=== PATIENT | female | born 1940 | race Hispanic/Latino ===

== ENCOUNTER 2018-03-05 07:15 | Inpatient (IN) ==
[2018-03-05] MEDS ORDERED: NS 1,000 ML IV ONE ×2 (08:01→09:32)
--- NOTE | 2018-03-05 08:09 | PROVIDER DOCUMENTATION ---
HPI-Abdominal Pain/GI Problem - General Chief Complaint: Rectal Bleeding Stated Complaint: FEVER / PAIN IN LEGS Time Seen by Provider: 03/05/18 08:04 Source: patient Allergies/Adverse Reactions: Patient Allergies Allergy/AdvReac Type Severity Reaction Status Date / Time levofloxacin [From Levaquin] AdvReac ITCHING Verified 03/05/18 08:06 Home Medications: Home Medication List Medication Instructions Recorded Confirmed Last Taken Type ATORVAstatin [Lipitor] 10 mg PO DAILY 03/05/16 03/05/18 04/12/16 History Donepezil [Aricept] 23 mg PO QAM 03/05/16 03/05/18 04/12/16 History LISINOpril [Prinivil] 5 mg PO DAILY 03/05/16 03/05/18 04/12/16 History Metformin [Glucophage] 850 mg PO BID CC 03/05/16 03/05/18 04/12/16 History Pantoprazole [Protonix] 40 mg PO BID 03/05/18 03/05/18 Unknown History - History of Present Illness-ABD Nature of Presenting Problems: Ms Singh is a 77yohf that presents to the ed with c/o black tarry stools, fever , chills, and fatigue that has been worsening over the past week. She was recently seen at [facility] and scheduled for a colonoscopy this week. She states that her symptoms have worsened since her D/C. Abdominal Pain Onset Location: reports: generalized abdomen Pain Radiation: reports: no radiation Quality of Pain: reports: sharp Severity in ED: reports: moderate Onset/Duration: reports: 1 week ago Timing: reports: still present Activities at Onset: reports: none Exposure to sick contacts?: No Modifying Factors: improves with: nothing Associated Symptoms: reports: diarrhea, fever/chills, malaise, muscle aches, nausea, weakness. denies: arm pain, back/neck pain, chest pain, constipation, headaches, shortness of breath, pain with inspiration Last BM: this morning Dark Stools Present?: reports: black Rectal Pain: reports: none Review of Systems - Adult - REVIEW OF SYSTEMS - ADULT Constitutional: reports: no symptoms reported Eyes: reports: no symptoms reported Ears, Nose, Mouth & Throat: reports: no symptoms reported Cardiovascular: reports: no symptoms reported Respiratory: reports: no symptoms reported Gastrointestinal: reports: see HPI Genitourinary: reports: no symptoms reported Musculoskeletal: reports: no symptoms reported Integumentary: reports: no symptoms reported Neurological: reports: no symptoms reported Psychiatric: reports: no symptoms reported Endocrine: reports: no symptoms reported Hematologic/Lymphatic: reports: no symptoms reported Allergic/Immunologic: reports: no symptoms reported All Other Systems: Reviewed and Negative Past History - Adult - PAST MEDICAL HISTORY-ADULT Review of Records: reports: Old Records Reviewed, Nursing Assessment Review, Medications Reviewed, Social history reviewed & non-contributory. Major Childhood Illnesses: reports: denies history Cardiovascular: reports: CAD, HTN, [place] Respiratory: reports: asthma Gastrointestinal: reports: denies history Obstetrical/Gynecological: reports: other (breast cancer) Genitourinary: reports: denies history Musculoskeletal: reports: denies history Neurological: reports: CVA, dementia Endocrine/Immune: reports: Diabetes Other Conditions: reports: other (breast cancer lumpectomy) - PRIOR SURGERIES/PROCEDURES Surgical/Procedure History: reports: reviewed, not pertinent - IMMUNIZATION STATUS Childhood Immunizations: See Nurse Assessment Flu Vaccine: See Nurse Assessment - FAMILY HISTORY Family History: reviewed, not pertinent - SOCIAL HISTORY Smoking: denies Substance Use: none/never Alcohol Use Frequency: never Living Situation: family Physical Exam-General - PHYSICAL EXAM-ADULT Initial Vital Signs Reviewed: Yes - CONSTITUTIONAL General Appearance: alert, no apparent distress, lethargic - EYES Eyes: PERRL/EOMI - HEAD, EARS, NOSE, MOUTH & THROAT HENMT: normocephalic/atraumatic, moist mucous membranes, normal ENT inspection - NECK Neck: non-tender, full range of motion, supple, normal inspection. negative: lymphadenopathy, trachial deviation - RESPIRATORY Respiratory: chest non-tender, lungs clear, normal breath sounds - CARDIOVASCULAR Cardiovascular: normal peripheral pulses, no edema, tachycardia - GASTROINTESTINAL (ABDOMEN) Abdominal Exam: normal bowel sounds, non tender, soft - GENITOURINARY Rectal Exam: normal exam, normal rectal tone, other (Rectal exam performed at bedside with CHIARA Padilla at bedside during exam) - LYMPHATIC Lymphatic: no adenopathy - MUSCULOSKELETAL Back Exam: normal inspection, no CVA tenderness, no vertebral tenderness Extremity: normal range of motion, non-tender - SKIN Integumentary: normal color, normal turgor, warm/dry. negative: abrasion(s) - NEUROLOGIC Neurologic: grossly normal - PSYCHIATRIC Psych/Mental Status: normal thought content Progress - PLAN OF CARE/RESULTS Progress/Plan/Lab Results: Vital Signs - 8 hr 03/05/18 07:30 Temperature 100.0 F H Pulse Rate 103 H Respiratory Rate 20 Blood Pressure 92/43 O2 Sat by Pulse Oximetry 95 Orders Category Date Time Status Saline Loc NOW Care 03/05/18 08:01 Active AMYLASE [CHEM] Stat Lab 03/05/18 07:53 Ordered BLOOD CULTURE [BLDCUL] Stat Lab 03/05/18 08:02 Uncollected CBC WITH DIFF [HEME] Stat Lab 03/05/18 07:53 Ordered COMPREHENSIVE METABOLIC PANEL [CHEM] Stat Lab 03/05/18 07:53 Uncollected LACTATE, PLASMA [CHEM] Stat Lab 03/05/18 07:53 Uncollected LIPASE [CHEM] Stat Lab 03/05/18 07:53 Uncollected OCCULT BLOOD SCREEN STOOL PL Stat Lab 03/05/18 07:53 Uncollected PROTIME WITH INR [COAG] Stat Lab 03/05/18 07:53 Uncollected PTT [COAG] Stat Lab 03/05/18 07:53 Uncollected TYPE & SCREEN [BBK] Stat Lab 03/05/18 07:53 Uncollected UA NIMS W/REFLEX CULT PL [URINALYSIS] Stat Lab 03/05/18 07:53 Uncollected Ns 1000 ml IV Bolus X1 Med 03/05/18 08:01 Ordered 0.9% Sodium Chloride Inj [Ns] 1,000 ml IV 999 mls/hr The pt will be admitted to [facility] with Pneumonia and r/o acalculi cholecystitis. The pt and her family understand, verbalize, and agree with the plan of care given today. Result Diagrams: 03/05/18 08:30 03/05/18 08:30 - EKG 1 Time of EKG reading by physician:: 08:47 EKG Read and Signed by:: Jerome Cox EKG Interpretation (*Must complete 3 of following elements*): Normal Rate: 104 Rhythm: Sinus tach [place]: normal QRS: normal ME Interval: normal ST Wave: normal - XRAY 1 XRAY: Bilateral XRAY Study: Chest Impression: Abnormal (COMMENT: There is ill-defined alveolar opacity in both lower lung estrada which has worsened since 04/12/2016. There may be a small left pleural effusion. The heart size is not enlarged. IMPRESSION: Bibasilar pneumonia.) Comparison with other Films: changes noted XRAY Interpretation: See Impression - CT/MRI 1 CT Study: Abdomen, Pelvis Impression: Abnormal (COMMENT: The current examination is compared with the previous CT colography dated 06/13/2017. There are bilateral pleural effusions which were not present previously. There is atelectasis or pneumonia in both lower lobes. This is worse than on the previous examination particularly in the right lower lobe. There was previously some opacity in the left lower lobe and some of this may be due to fibrosis. Minimal fibrotic changes are present in the right middle lobe including some pleural thickening. There is a small hiatal hernia. There is mild periportal edema. This is a nonspecific finding but may be seen in congestive heart failure and hepatitis. There is no evidence of nephrolithiasis or hydronephrosis. The spleen and adrenal glands are not enlarged. There is a fair amount of stool in the colon. The pancreas is unremarkable in appearance. The gallbladder is slightly distended and there may be some pericholecystic fluid and/or wall thickening. There is no evidence of small bowel obstruction. The abdominal aorta is partially calcified but there is no evidence of aneurysm. The mesenteric and renal arteries appear to be patent. There is extensive postsurgical and degenerative change in the lumbar spine. Pelvis: There is stool throughout the rectosigmoid. There are a few diverticula. There is no evidence of acute diverticulitis. No masses or significant adenopathy are present. The urinary bladder is unremarkable. IMPRESSION: Constipation. The possibility of acalculous cholecystitis cannot be excluded. Bilateral pleural effusions with bibasilar atelectasis versus pneumonia.) CT Results: See Impression - CONSULTS/PCP/HOSPITALIST Notification #1 *Consult/PCP/Hospitalist*: Dr. Espitia Time Discussed: 10:35 Consult Disposition: Admit Departure - Departure Date of Disposition Decision: 03/05/18 Time of Disposition Decision: 10:36 DIAGNOSIS: Cholecystitis Pneumonia Qualifiers: Pneumonia type: due to unspecified organism Laterality: unspecified laterality Lung location: unspecified part of lung Qualified Code(s): J18.9 - Pneumonia, unspecified organism Sepsis Qualifiers: Sepsis type: sepsis due to unspecified organism Qualified Code(s): A41.9 - Sepsis, unspecified organism Disposition: HOME 01 Certified Medical Emergency: Emergent Condition: Stable Additional Freetext Instructions: ED Follow Up Instructions: You have been treated by a care provider in the Emergency Department. These instructions are being provided to you so you can have an understanding of how to care for yourself upon discharge. Upon discharge from the Emergency Department, you are responsible for making arrangements for follow-up care by a physician of your choice. Take all prescribed medications as directed. Return to the Emergency Department immediately for any new or worsening symptoms. You may call the Physician Referral phone number at [phone] to obtain a list of Physicians who are taking new patients. Referrals and Follow-Ups: Alex Espitia MD [Primary Care Provider] - - Critical Care Note This patient required my direct & personal management of CC.: No Attestation - Physician/ ELISA Attestation Patient care was provided by Advanced Practice Provider:: Yes Advanced Practice Provider:: Geovanny Olivas Advanced Practice Provider documentation review:: The Mid-level provider documentation, treatment plan and medical decision making was reviewed by the physician who agrees with all treatment and medical decision making by the MLP. The physician spent face to face time with patient:: No Advanced Practice Provider documentation review:: Supervising physician onsite and consulted in the evaluation and care of this patient. The physician did not have a face to face encounter with the patient.
[2018-03-05 08:40] LABS: BASO# 0.02 X1000 (0.0-0.2); BASO% 0.2 % (0.0-0.8); EOS# 0.18 X1000 (0.0-0.7); EOS% 1.6 % (0.0-10.0); HEMATOCRIT 30.9 % (37.0-47.0); IMM GRAN# 0.09 X1000 (0.0-0.04); IMM GRAN% 0.8 % (0.0-0.5); LYMPH# 0.34 X1000 (1.2-3.4); MCH 29.9 PG (27-31); MCHC 32.4 g/dL (33-37); MCV 92.2 FL (81-99); MONO# 0.66 X1000 (0.11-0.59); MONO% 5.8 % (1.7-9.3); MPV 11.5 FL (7.4-10.4); NEUT# 10.05 X1000 (1.4-6.5); NEUT% 88.6 % (42.2-75.2); PLT 137 X1000 (130-400); RBC 3.35 XMIL (4.2-5.4); RDW 16.5 % (11.5-14.5); WBC 11.34 X1000 (4.8-10.8)
[2018-03-05 08:41] LABS: OCCULT BLOOD 1 NEGATIVE (NEGATIVE)
[2018-03-05 09:00] LABS: INR 1.13; PROTIME 15.1 Seconds (11.0-16.0)
[2018-03-05 09:01] LABS: PTT 41.1 Seconds (22.3-41.8)
[2018-03-05 09:16] LABS: ALBUMIN 2.5 g/dL (3.5-5.0); CALCIUM 8.1 mg/dL (8.8-10.2); POTASSIUM 3.8 mmol/L (3.5-5.1); TOTAL BILIRUBIN 0.9 mg/dL (0.20-1.00)
[2018-03-05 09:37] LABS: BANDS 6 % (0-1); EOS 2 % (1-10); LYMPHS 7 % (21-51); MONO 6 % (1-9); SEGS 79 % (42-75)
--- NOTE | 2018-03-05 09:49 | Diag Imaging Result Doc PS360 ---
EXAM: CHEST-2 VIEWS 03/05/2018 HISTORY: possible sepsis TECHNIQUE: PA and lateral chest COMMENT: There is ill-defined alveolar opacity in both lower lung estrada which has worsened since 04/12/2016. There may be a small left pleural effusion. The heart size is not enlarged. IMPRESSION: Bibasilar pneumonia. Electronically signed by Matt Myers 03/05/2018 9:47 AM
--- NOTE | 2018-03-05 10:03 | Diag Imaging Result Doc PS360 ---
EXAM: CT ABD/PELVIS W/IV CONT ONLY 03/05/2018 HISTORY: abd pain with c/o bloody stool TECHNIQUE: This exam was performed using automated exposure control, adjustment of mA or kV according to patient size, and/or use of iterative reconstruction technique. COMMENT: The current examination is compared with the previous CT colography dated 06/13/2017. There are bilateral pleural effusions which were not present previously. There is atelectasis or pneumonia in both lower lobes. This is worse than on the previous examination particularly in the right lower lobe. There was previously some opacity in the left lower lobe and some of this may be due to fibrosis. Minimal fibrotic changes are present in the right middle lobe including some pleural thickening. There is a small hiatal hernia. There is mild periportal edema. This is a nonspecific finding but may be seen in congestive heart failure and hepatitis. There is no evidence of nephrolithiasis or hydronephrosis. The spleen and adrenal glands are not enlarged. There is a fair amount of stool in the colon. The pancreas is unremarkable in appearance. The gallbladder is slightly distended and there may be some pericholecystic fluid and/or wall thickening. There is no evidence of small bowel obstruction. The abdominal aorta is partially calcified but there is no evidence of aneurysm. The mesenteric and renal arteries appear to be patent. There is extensive postsurgical and degenerative change in the lumbar spine. Pelvis: There is stool throughout the rectosigmoid. There are a few diverticula. There is no evidence of acute diverticulitis. No masses or significant adenopathy are present. The urinary bladder is unremarkable. IMPRESSION: Constipation. The possibility of acalculous cholecystitis cannot be excluded. Bilateral pleural effusions with bibasilar atelectasis versus pneumonia. Electronically signed by Matt Myers 03/05/2018 10:00 AM
[2018-03-05] MEDS ORDERED: ZITHROMAX 500 MG/NS 500 MG/250 ML IVPB IV ONE (10:07)
[2018-03-05] MEDS ORDERED: ROCEPHIN 1 GM in NS 50 ML IV ONE (10:07)
[2018-03-05 10:25] LABS: BILIRUBIN URINE NEGATIVE (NEGATIVE); BLOOD URINE 1+ (NEGATIVE); CLARITY CLEAR (CLEAR); COLOR YELLOW; GLUCOSE URINE NEGATIVE (NEGATIVE); KETONE URINE TRACE mg/dL (NEGATIVE); LEUKOCYTES URINE TRACE (NEGATIVE); NITRITE URINE POSITIVE (NEGATIVE); PH URINE 6.5; PROTEIN URINE 2+(100 mg/dL) mg/dL (NEGATIVE); SP GRAVITY URINE 1.005; UROBILINOGEN URINE 1 mg/dL
[2018-03-05 10:30] LABS: URINE BACTERIA 1+ /HFP; URINE EPITHELIAL CELLS >10 /HPF (<10); URINE RBC <10 /HPF (<10); URINE SOURCE CLEAN CATCH; URINE WBC <10 /HPF (<10)
[2018-03-05 10:38] LABS: INFLUENZA A NEGATIVE (NEGATIVE); INFLUENZA B NEGATIVE (NEGATIVE)
--- NOTE | 2018-03-05 11:38 | Diag Imaging Result Doc PS360 ---
EXAM: US ABDOMEN-COMPLETE 03/05/2018 HISTORY: abdominal pain TECHNIQUE: Abdominal ultrasound COMMENT: The visualized portions of the head and body the pancreas are within normal limits. The aorta and inferior vena cava are normal in appearance where they are visible. The liver is unremarkable. There is antegrade flow in the portal vein. The kidneys are without evidence of hydronephrosis or mass. The gallbladder is not distended, but there may be some para cholecystic fluid and there is a positive sonographic Nguyen sign. There are no apparent stones. The common bile duct measures 3 mm. The spleen is not enlarged. There is a left pleural effusion. IMPRESSION: Acalculous cholecystitis. Pleural effusions. Electronically signed by Matt Myers 03/05/2018 11:35 AM
[2018-03-05] MEDS: ZOSYN 3.375 GM in NS 50 ML IV SCH ×2 (12:21→18:35)
--- NOTE | 2018-03-05 13:05 | HISTORY AND PHYSICAL ---
PRIMARY CARE PHYSICIAN: Listed as none. CHIEF COMPLAINT: Black tarry stools, fever, chills, and fatigue. HISTORY OF PRESENTING ILLNESS: This is a 77-year-old female who presents to [facility] with complaints of black tarry stools, fever, chills, and fatigue that has worsened over the past week. She is mildly confused and a poor historian but was apparently seen or admitted at [facility] recently and is supposed to be scheduled for a colonoscopy this week. Her workup showed a stool for occult blood was negative. White blood cell count of 11.34. Her LFTs are elevated with an AST of 90 and ALT 63. Amylase and lipase were both normal. Her urinalysis showed positive nitrite, a trace of white blood cells, and 1+ bacteria. We did a CT of the abdomen and pelvis that showed constipation. The possibility of acalculous cholecystitis could not be excluded. There were some bilateral pleural effusions with bibasilar atelectasis versus pneumonia also. Chest x-ray showed bibasilar pneumonia. We did do an abdominal ultrasound that was read as an acalculous cholecystitis with pleural effusions, so she will be admitted to the medical unit for further evaluation and treatment. PAST MEDICAL HISTORY: Coronary artery disease, hypertension, [place], asthma, breast cancer, CVA, dementia, and diabetes type 2. PAST SURGICAL HISTORY: Breast lumpectomy. FAMILY HISTORY: Reviewed and noncontributory. SOCIAL HISTORY: She currently lives with family. Denies any tobacco, alcohol, or illicit drug use. ALLERGIES: Levofloxacin. HOME MEDICATIONS: She takes Lipitor 10 mg p.o. daily. Aricept 23 mg p.o. q.a.m. Lisinopril 5 mg p.o. daily. Metformin 850 mg p.o. b.i.d. Protonix 40 mg p.o. b.i.d. LABORATORY DATA: Showed a white blood cell count of 11.34, hemoglobin 10, hematocrit 30.9, platelets 137,000. PT and INR of 15.1 and 1.13. Sodium 139, potassium 3.8, chloride 108, CO2 of 17, BUN of 27, creatinine 1, glucose 90. AST of 90. ALT 63. Amylase 42. Lipase 16. Plasma lactate 2. Urinalysis with positive nitrites, trace white blood cells, 1+ bacteria. Stool for occult blood is negative. Influenza A and B were both negative. CT of the abdomen and pelvis showed constipation. The possibility of acalculous cholecystitis could not be excluded. Bilateral pleural effusions with bibasilar atelectasis versus pneumonia. Chest x-ray showed bibasilar pneumonia. Abdominal ultrasound showed an acalculous cholecystitis and pleural effusions. REVIEW OF SYSTEMS: She was positive for a subjective fever, chills, fatigue, black tarry stools. Denied any chest pain, coughing, shortness of breath. Denied any abdominal pain, nausea, vomiting, burning or hurting with urination. PHYSICAL EXAMINATION: VITAL SIGNS: On arrival showed a temperature of 100 degrees, pulse 103, respirations 20, blood pressure was 92/43, saturating 95% on room air. Currently, her blood pressure is up to 108/63. GENERAL: This is a 77-year-old female who is lying in the bed. Difficult to answer some questions appropriately. Does have some mild confusion. Information obtained from the ER record. HEENT: Normocephalic, atraumatic. Normal ENT inspection. Oropharynx and nares are clear. Eyes, pupils are equal, round, and reactive to light and accommodation. Extraocular movements are intact. NECK: Normal inspection. Normal range of motion. LUNGS: Clear to auscultation bilaterally with equal lung expansion and chest wall movement. HEART: With regular rate and rhythm. No murmurs, rubs, or gallops. ABDOMEN: Soft. Nontender and nondistended. Bowel sounds are present x4 quadrants. MUSCULOSKELETAL: She has 5/5 strength x4 extremities. NEUROLOGICAL: Cranial nerves 2-12 appear grossly intact. ASSESSMENT: 1. Bibasilar pneumonia. 2. Urinary tract infection. 3. Acalculous cholecystitis. 4. Hypertension. 5. Diabetes type 2. PLAN: She will be admitted to the medical unit. Urine culture and blood cultures are pending. We will consult General Surgery. Place her on Zosyn 3.375 g IV q.6, azithromycin 500 IV q.24, DuoNebs q.[address] telemetry. Incentive spirometry. N.p.o. at this time. O2 per protocol. We will recheck a CBC, BMP in the a.m. Continue home medications as previously identified, and further orders after being seen by attending and General Surgery. Dictated by LAZ Mcnamara for Negro Espitia MD cc: LAZ Mcnamara MD
[2018-03-05] MEDS: DUONEB (A & A) INH SCH ×3 (16:30→23:26)
[2018-03-05] MEDS ORDERED: GLUCOPHAGE PO SCH (17:00)
[2018-03-05] MEDS: PROTONIX IV SCH (18:35)
[2018-03-05] MEDS: ARICEPT PO SCH (18:35)
[2018-03-05] MEDS: PRINIVIL PO SCH (18:35)
--- NOTE | 2018-03-05 20:06 | EKG Report ---
Test Performed on : 03/05/2018 08:47:25 AM Test Reason : possible sepsis Blood Pressure : / mmHG Vent. Rate : 104 BPM Atrial Rate : 104 BPM P-R Int : 152 ms QRS Dur : 080 ms QT Int : 312 ms P-R-T Axes : 076 045 061 degrees QTc Int : 410 ms Sinus tachycardia. Otherwise normal ECG When compared with ECG of 04-MAY-2017 19:33, Sinus rhythm. has replaced Junctional rhythm. Vent. rate has increased BY 38 BPM Nonspecific T wave abnormality, improved in Inferior leads Unconfirmed Result
[2018-03-05] MEDS: LIPITOR PO SCH (20:22)
--- NOTE | 2018-03-05 20:30 | PROGRESS NOTE ---
DATE: 03/05/2018 SUBJECTIVE: Patient is 77-year-old female who presents from [place]. She reports black tarry stools. She was just at [facility] for a GI bleed. She received 4 units of blood it sounds like from her son who is and she is due for an outpatient colonoscopy in about a month. However she came in with fevers, chills, fatigue. She reports melena but her stool is not melenic and she was heme negative so little unclear but she is uncomfortable. She has a history of CAD, hypertension, CVA, but she was diagnosed here with pneumonia based on her CT which showed constipation, acalculous cholecystitis and pneumonia and possible pleural effusions. She definitely has pain in her right upper quadrant. PROBLEM LIST: 1. Pneumonia. At this point we are probably going to say it is institutional acquired so she is on Zosyn I think that is fine and she is on azithromycin. 2. Acalculous cholecystitis. We will get a surgical opinion and follow, work on her bowels too and get a HIDA scan tomorrow but does look like she has got acalculous cholecystitis. 3. Gastrointestinal bleed appears to be stable. We will hold anticoagulants, continue Protonix and follow. She may need a bowel regimen as well. Family says she is very weak. We will work on reconditioning with PT and follow. cc: Negro Espitia MD
[2018-03-05] MEDS ORDERED: PROTONIX PO SCH (21:00)
--- NOTE | 2018-03-05 21:43 | GENERAL SURGERY CONSULTATION ---
DATE: 03/05/2018 HISTORY OF PRESENT ILLNESS: Ms. Singh is admitted today with fever, chills, and fatigue. Her workup included an ultrasound and CT that does show a dilated gallbladder, with some pericholecystic fluid. She does report some dyspeptic symptoms, with some bloating. She has been evaluated in [facility] recently, apparently for hematochezia. Her x-ray also shows possible pneumonia, and her workup shows a urinary tract infection. PAST MEDICAL HISTORY: Positive for coronary artery disease, hypertension, history of asthma, history of breast cancer, dementia, and type 2 diabetes. PREVIOUS SURGICAL HISTORY: Includes a lumpectomy and apparently a . FAMILY HISTORY: Not known. SOCIAL HISTORY: She says she lives alone. She denies a history of tobacco, alcohol, or drug use. MEDICATIONS: Listed. ALLERGIES: She is allergic to levofloxacin. REVIEW OF SYSTEMS: As noted above. PHYSICAL EXAMINATION: Vital Signs: Temperature is 97.5 degrees, heart rate 102, respiratory rate 20, blood pressure 130/62. Neck: No cervical adenopathy. Lungs: Bilateral breath sounds. Heart: Regular rate and rhythm. Abdomen: Soft. She is tender in the right upper quadrant, consistent with a positive Nguyen's sign. She does have some erythema in the lower abdominal fold, consistent with yeast. Extremities: There is no peripheral edema. Neurologic: She is awake and alert. LABORATORY DATA: White count is 11,300, hemoglobin 10, hematocrit 30. BUN 27, creatinine 1.0. Total bilirubin 0.9, AST 90, ALT 63, alkaline phosphatase 82. Ultrasound does show some edema in her gallbladder. ASSESSMENT AND PLAN: Probable acalculous cholecystitis. She will be receiving antibiotic therapy. We will follow along, and when she is medically stable, she may come to a cholecystectomy. Thanks for the opportunity to see her. cc: Sreedhar Nino MD
[2018-03-06] MEDS: ZOSYN 3.375 GM in NS 50 ML IV SCH ×5 (00:27→21:33)
[2018-03-06] MEDS: DUONEB (A & A) INH SCH ×5 (03:23→20:09)
[2018-03-06] MEDS ORDERED: NS 500 ML IV ONE (04:23)
[2018-03-06] MEDS ORDERED: NS 500 ML ONE (04:27)
[2018-03-06] MEDS ORDERED: CARDIZEM 100 MG/NS 100 MG/100 ML IVPB IV SCH (04:30)
[2018-03-06] MEDS ORDERED: CARDIZEM 125/NS 125 MG/125 ML IVPB ONE (04:45)
--- NOTE | 2018-03-06 04:55 | EKG Report ---
Test Performed on : 03/06/2018 04:21:47 AM Test Reason : HR @ 180 Blood Pressure : / mmHG Vent. Rate : 170 BPM Atrial Rate : 166 BPM P-R Int : 000 ms QRS Dur : 082 ms QT Int : 258 ms P-R-T Axes : 000 061 245 degrees QTc Int : 433 ms Atrial fibrillation. with rapid ventricular response. ST & T wave abnormality, consider inferior ischemia ST & T wave abnormality, consider anterolateral ischemia Abnormal ECG When compared with ECG of 05-MAR-2018 08:47, (Unconfirmed) Significant changes have occurred Confirmed by Jerome Cox MD ([id number]) on 04/02/2018 9:58:24 AM
[2018-03-06] MEDS ORDERED: NEO-SYNEPHRINE ONE (05:55)
[2018-03-06] MEDS ORDERED: NS 250 ML ONE (05:55)
[2018-03-06] MEDS ORDERED: LANOXIN ONE (05:57)
[2018-03-06] MEDS ORDERED: NS 0 ML ONE (06:06)
[2018-03-06] MEDS ORDERED: LANOXIN IV ONE (06:10)
[2018-03-06] MEDS ORDERED: NEO-SYNEPHRINE 50 MG in NS 250 ML IV SCH (06:15)
[2018-03-06 07:12] LABS: BASO# 0.02 X1000 (0.0-0.2); BASO% 0.2 % (0.0-0.8); HEMATOCRIT 27.1 % (37.0-47.0); HEMOGLOBIN 8.5 g/dL (12.0-16.0); IMM GRAN# 0.03 X1000 (0.0-0.04); IMM GRAN% 0.3 % (0.0-0.5); LYMPH# 0.86 X1000 (1.2-3.4); LYMPH% 7.6 % (20.5-51.1); MCH 28.7 PG (27-31); MCHC 31.4 g/dL (33-37); MCV 91.6 FL (81-99); MONO% 8.8 % (1.7-9.3); MPV 11.1 FL (7.4-10.4); NEUT# 9.47 X1000 (1.4-6.5); NEUT% 83.1 % (42.2-75.2); PLT 177 X1000 (130-400); RBC 2.96 XMIL (4.2-5.4); RDW 16.6 % (11.5-14.5); WBC 11.38 X1000 (4.8-10.8)
[2018-03-06 07:35] LABS: CALCIUM 7.4 mg/dL (8.8-10.2); CREATININE 1.1 mg/dL (0.5-0.9); POTASSIUM 3.3 mmol/L (3.5-5.1)
[2018-03-06 07:37] LABS: ALBUMIN 2.5 g/dL (3.5-5.0); DIRECT BILIRUBIN 0.3 mg/dL (0.00-0.20); TOTAL BILIRUBIN 0.6 mg/dL (0.20-1.00)
[2018-03-06] MEDS: TYLENOL PO PRN ×2 (07:54→16:49)
[2018-03-06] MEDS ORDERED: KLOR-CON PO ONE (07:55)
[2018-03-06] MEDS: ARICEPT PO SCH (09:31)
[2018-03-06] MEDS: PRINIVIL PO SCH (09:31)
[2018-03-06] MEDS ORDERED: CARDIZEM 125/NS 125 MG/125 ML IVPB IV SCH (10:43)
[2018-03-06] MEDS: ZITHROMAX 500 MG/NS 500 MG/250 ML IVPB IV SCH (13:25)
--- NOTE | 2018-03-06 13:55 | CARDIOLOGY CONSULTATION ---
DATE: 03/06/2018 HISTORY OF PRESENT ILLNESS: Cardiology was consulted for atrial fibrillation. The patient has history of atrial fibrillation, is admitted with pneumonia. The patient is a poor historian. History was obtained from the chart. The patient is a 77-year-old, lady who had complaints of black tarry stools, fevers, chills and fatigue. Over the past week she was apparently admitted at [facility], and was scheduled for colonoscopy. Her workup showed stools were negative for occult blood. Chest x-ray revealed bibasilar pneumonia. She has been started on antibiotics. Abdominal ultrasound revealed acalculous cholecystitis with pleural effusions as well. REVIEW OF SYSTEMS: A 14-point review of systems could not be obtained from the patient. PAST MEDICAL HISTORY: Diabetes, hypertension, dementia, history of atrial fibrillation 2017. Gastroesophageal reflux disease. Hyperlipidemia. History of diastolic heart failure. MEDICATIONS: Home medications: Lipitor 10. Aricept 23. Lisinopril 5. Metformin 850 b.i.d., Protonix 40 b.i.d. Current medications include in addition to home medications: She is on a Cardizem drip. Vipul- Synephrine drip. Zithromax intravenously. Zosyn intravenously. She has received ceftriaxone and 1 dose of digoxin. PHYSICAL EXAMINATION: Vital Signs: Blood pressure 91/49. Neck: Jugular venous pressure was normal. Cardiac: First and second heart sounds were heard. There was faint murmur. Respiratory System: Scattered crepitations. Abdomen: Soft, nontender. Central nervous system: Alert, was moving all 4 extremities. Detailed central nervous system examination not performed. LABORATORY EXAMINATION: Revealed sodium 135, potassium 3.3, BUN 26, creatinine 1.1. ALT 47, AST 62. WBC 11.38, hemoglobin on admission was 10.5, today 8.5. Hematocrit was 30, today 27.1. WBC 11.38, platelet count 177. Blood cultures gram-positive cocci, preliminary report. ASSESSMENT AND PLAN: Ms. Viviana Singh is a 77-year-old lady with history of: 1. Dementia. 2. Hypertension. 3. Atrial fibrillation. 4. Diabetes. 5. Gastroesophageal reflux disease. 6. Was noted to have had black tarry stools which was heme-negative. However, colonoscopy was planned at [place] per chart. She is admitted with increasing shortness of breath. Was noted to be in atrial fibrillation with rapid ventricular rate and bibasilar pneumonia. She has history of atrial fibrillation. RECOMMENDATIONS: 1. From a cardiac standpoint, as far as atrial fibrillation is concerned, she was started on a Cardizem drip. Is hypotensive, probably from pneumonia, sepsis as well. She is on a Vipul- Synephrine drip. We will get an echocardiogram to assess cardiac and valvular function. 2. I will discontinue the Cardizem. Put her on a combination of p.o. Cardizem and digoxin and continue with the Vipul-Synephrine drip. 3. As far as anticoagulation is concerned, not anticoagulated the patient. There is history of black tarry stools even though stool was negative. Colonoscopy was planned and her hemoglobin and hematocrit has dropped. 4. She has gallstones and surgery has been consulted. 5. Her blood pressure is low. For hypertension, she was on lisinopril. Will discontinue that. We will see if Cardizem p.o. will control her blood pressure as well.
[2018-03-06] MEDS ORDERED: VANCOMYCIN IV PER PHARMACY MISC SCH (14:30)
[2018-03-06] MEDS: CARDIZEM PO SCH ×2 (14:52→21:34)
[2018-03-06] MEDS: LANOXIN PO SCH (14:52)
[2018-03-06] MEDS ORDERED: VANCOMYCIN 1,400 MG in NS 250 ML IV ONE (15:00)
[2018-03-06] MEDS: NS 1,000 ML IV SCH (16:49)
[2018-03-06] MEDS: PROTONIX IV SCH (16:53)
--- NOTE | 2018-03-06 19:06 | ECHO REPORT ---
ORDER DATE: 03/06/2018 ECHOCARDIOGRAM: INDICATION: Atrial fibrillation, pneumonia, hypertension. FINDINGS: 1. Right atrium is moderately enlarged at 5.2 cm. 2. Moderate tricuspid regurgitation. RV systolic pressure 38. 3. Right ventricle is difficult to evaluate due to poor views, but there appears to be mild RV systolic function reduction. 4. Mild pulmonic insufficiency. 5. Severe left atrial enlargement with a volume index of 44. 6. No mitral valve prolapse. Mild mitral regurgitation. 7. Normal LV size, end-diastolic dimension of 4.4 cm. Normal wall thicknesses with a posterior and interventricular septal wall thickness of 0.6 and 0.8 cm respectively. Normal LV systolic function. Estimated EF is 60% to 65% with normal wall motion. 8. Aortic valve appears to have some restriction in motion. Peak gradient across the valve is 22 with a mean of 13. The valve area by continuity equation is 1.6 cm sq. This would suggest mild aortic stenosis. There is mild aortic insufficiency. 9. Aorta appears normal in visualized segments. 10. No pericardial effusion. Suggestion of a pleural effusion. cc: MD Shaheen Thurman MD
[2018-03-06 20:14] LABS: BILIRUBIN URINE NEGATIVE (NEGATIVE); BLOOD URINE 1+ (NEGATIVE); CLARITY CLEAR (CLEAR); COLOR YELLOW; GLUCOSE URINE NEGATIVE (NEGATIVE); KETONE URINE NEGATIVE (NEGATIVE); LEUKOCYTES URINE NEGATIVE (NEGATIVE); NITRITE URINE NEGATIVE (NEGATIVE); PH URINE 6.5; PROTEIN URINE TRACE mg/dL (NEGATIVE); UROBILINOGEN URINE NORMAL
[2018-03-06 20:16] LABS: URINE BACTERIA NEGATIVE /HFP; URINE CAST GRANULAR PRESENT /LPF; URINE CRYSTAL NONE SEEN /HPF; URINE EPITHELIAL CELLS <10 /HPF (<10); URINE RBC <10 /HPF (<10); URINE SMALL ROUND CELLS RENAL PRESENT; URINE SOURCE CLEAN CATCH; URINE WBC <10 /HPF (<10); URINE YEAST NONE SEEN /HPF
[2018-03-06] MEDS: LIPITOR PO SCH (21:34)
[2018-03-07] MEDS: DUONEB (A & A) INH SCH ×4 (00:01→12:44)
--- NOTE | 2018-03-07 02:15 | PROGRESS NOTE ---
DATE: 03/06/2018 SUBJECTIVE: The patient has no new complaints. She states that she does feel her heart racing at times. OBJECTIVE: Vital Signs: The patient is afebrile. Pulse 130s-160s, BP 185/55. General: Then patient is awake and alert. She is currently in no respiratory distress. Overall is feeling okay. Abdomen: Soft and nondistended. Extremities: Moves all extremities. ASSESSMENT: 1. pneumonia. 2. Atrial fibrillation with rapid ventricular response. 3. acalculous cholecystitis. 4. Hypertension. PLAN: We will continue the patient in the hospital. Transfer her to ICU when bed is available. Continue Cardizem, Vipul-Synephrine. Continue digoxin and antibiotics. cc: Joesph Strange MD MTDD
[2018-03-07] MEDS: ZOSYN 3.375 GM in NS 50 ML IV SCH ×4 (03:00→20:27)
[2018-03-07] MEDS: CARDIZEM PO SCH ×3 (05:57→20:27)
[2018-03-07] MEDS: NS 1,000 ML IV SCH ×2 (05:57→17:46)
[2018-03-07 07:10] LABS: HEMATOCRIT 26.8 % (37.0-47.0); HEMOGLOBIN 8.4 g/dL (12.0-16.0); MCHC 31.3 g/dL (33-37); MCV 92.4 FL (81-99); MPV 11.5 FL (7.4-10.4); RBC 2.9 XMIL (4.2-5.4); WBC 9.36 X1000 (4.8-10.8)
[2018-03-07 07:14] LABS: AGAP 11; ALBUMIN 1.9 g/dL (3.5-5.0); ALKALINE PHOSPHATASE 65 U/L (32-104); BUN 24 mg/dL (8-22); CALCIUM 7.2 mg/dL (8.8-10.2); CHLORIDE 111 mmol/L (98-107); COSMO 279; CREATININE 0.9 mg/dL (0.5-0.9); ESTIMATED GFR > 60; GLUCOSE 83 mg/dL (70-104); GOT 41 U/L (10-30); GPT 34 U/L (10-36); POTASSIUM 3.9 mmol/L (3.5-5.1); SODIUM 138 mmol/L (136-145); TCO2 16 mmol/L (25-35); TOTAL PROTEIN 5.2 g/dL (6.3-8.3)
[2018-03-07] MEDS: ARICEPT PO SCH (08:47)
[2018-03-07] MEDS: LANOXIN PO SCH (08:47)
[2018-03-07] MEDS: ZITHROMAX 500 MG/NS 500 MG/250 ML IVPB IV SCH (13:25)
[2018-03-07] MEDS ORDERED: DULCOLAX PR ONE (16:06)
[2018-03-07] MEDS ORDERED: CITRATE OF MAGNESIA PO ONE (16:06)
[2018-03-07] MEDS: TYLENOL WITH CODEINE #3 PO PRN (16:14)
[2018-03-07] MEDS: PROTONIX IV SCH (17:45)
[2018-03-07] MEDS: VANCOMYCIN 1,200 MG in NS 250 ML IV SCH (17:46)
[2018-03-07] MEDS: SODIUM CHLORIDE 0.9% INJ SCH (17:46)
[2018-03-07] MEDS: XOPENEX NEB INH PRN ×2 (20:00→23:24)
[2018-03-07] MEDS: LIPITOR PO SCH (20:27)
[2018-03-07 20:33] LABS: OCCULT BLOOD 1 NEGATIVE (NEGATIVE)
[2018-03-08] MEDS: ZOSYN 3.375 GM in NS 50 ML IV SCH ×4 (02:03→20:40)
[2018-03-08] MEDS ORDERED: VANCOMYCIN 1,200 MG in NS 250 ML IV SCH (03:00)
--- NOTE | 2018-03-08 03:35 | PROGRESS NOTE ---
DATE: 03/07/2018 SUBJECTIVE: The patient has no complaints. States that she is overall feeling a little bit better. PHYSICAL EXAMINATION: Vital Signs: Temperature 98, pulse 68, respiratory rate 20, BP 83/53 to 93/57. General: The patient is awake. She is in no current respiratory distress. HEENT: Normocephalic. Neck: Supple. Cardiovascular: Regular rate. No appreciable murmurs. Chest: Relatively clear. No crackles. No wheezing currently. Abdomen: Soft and nondistended. Extremities: Moves all extremities. ASSESSMENT AND PLAN: 1. Bibasilar pneumonia. 2. Urinary tract infection. 3. Methicillin-resistant Staphylococcus aureus. Continue vancomycin. 4. Hypotension. Patient currently is on Vipul-Synephrine. We will decrease her Cardizem from 60 by mouth every 6 hours to 30 by mouth three times a day secondary to blood pressure being low. Her heart rate thankfully is improved. It was 130s-160s and currently is down in the 60s. We will continue digoxin. 5. Atrial fibrillation. Currently bradycardic with pauses. We will decrease Cardizem as noted. 6. Methicillin-resistant Staphylococcus aureus bacteremia. 7. Sepsis secondary to methicillin-resistant Staphylococcus aureus. 8. Hypertension. cc: Joesph Strange MD
[2018-03-08] MEDS: TYLENOL WITH CODEINE #3 PO PRN ×2 (04:52→09:03)
[2018-03-08 06:28] LABS: AGAP 12; ALBUMIN 2.1 g/dL (3.5-5.0); ALKALINE PHOSPHATASE 64 U/L (32-104); BUN 21 mg/dL (8-22); CALCIUM 7.3 mg/dL (8.8-10.2); CHLORIDE 112 mmol/L (98-107); COSMO 281; CREATININE 0.9 mg/dL (0.5-0.9); ESTIMATED GFR > 60; GLUCOSE 69 mg/dL (70-104); GOT 32 U/L (10-30); GPT 30 U/L (10-36); POTASSIUM 3.7 mmol/L (3.5-5.1); SODIUM 140 mmol/L (136-145); TCO2 16 mmol/L (25-35); TOTAL PROTEIN 4.8 g/dL (6.3-8.3)
[2018-03-08 07:05] LABS: BASO# 0.04 X1000 (0.0-0.2); BASO% 0.5 % (0.0-0.8); EOS# 0.19 X1000 (0.0-0.7); EOS% 2.3 % (0.0-10.0); HEMATOCRIT 26.9 % (37.0-47.0); HEMOGLOBIN 8.5 g/dL (12.0-16.0); IMM GRAN# 0.08 X1000 (0.0-0.04); LYMPH# 0.82 X1000 (1.2-3.4); LYMPH% 9.8 % (20.5-51.1); MCH 28.9 PG (27-31); MCHC 31.6 g/dL (33-37); MCV 91.5 FL (81-99); MONO# 1.11 X1000 (0.11-0.59); MONO% 13.2 % (1.7-9.3); MPV 11.6 FL (7.4-10.4); NEUT# 6.17 X1000 (1.4-6.5); NEUT% 73.2 % (42.2-75.2); PLT 189 X1000 (130-400); RBC 2.94 XMIL (4.2-5.4); RDW 17.2 % (11.5-14.5); WBC 8.41 X1000 (4.8-10.8)
[2018-03-08] MEDS ORDERED: NS 1,000 ML IV SCH (08:25)
[2018-03-08] MEDS ORDERED: NS 1,000 ML ONE (09:01)
[2018-03-08] MEDS: ARICEPT PO SCH (09:03)
[2018-03-08] MEDS: LANOXIN PO SCH (09:03)
[2018-03-08] MEDS: CARDIZEM PO SCH ×3 (09:03→20:39)
--- NOTE | 2018-03-08 09:21 | Diag Imaging Result Doc PS360 ---
EXAM: XRAY HIP UNILATERAL LT HISTORY: pain TECHNIQUE: Two views performed portably COMPARISON: None. FINDINGS: There is no evidence for displaced hip fracture or dislocation. There are mild degenerative changes. Please note a nondisplaced fracture is probably undetectable on this portable study given the patient's body habitus. There are mild osteoarthritic changes left hip. There is surgical hardware lower lumbar spine. IMPRESSION: No evidence for displaced hip fracture or dislocation. Mild osteoarthritis. Electronically signed by Karoline Shore 03/08/2018 9:19 AM
[2018-03-08] MEDS ORDERED: BLISTEX MEDICATED BERRY LIP BALM TOP PRN (09:46)
--- NOTE | 2018-03-08 11:22 | GENERAL SURGERY PROGRESS NOTE ---
DATE: 03/08/2018 It is 11 o'clock in the morning. Ms. Singh really does not complain about her abdomen. She complains more about her left hip. She continues in the unit. She is afebrile, heart rate of 83, blood pressure 116/52. She is having her rhythm regulated with Cardizem and Lanoxin. She continues on Zosyn. White count is 8400. Chemistry is okay. AST is down to 32. ALT is down the 30. Alkaline phosphatase is normal at 64. ASSESSMENT AND PLAN: I would simply order a HIDA scan to see if her cystic duct is patent. This will help us decide how urgent her cholecystectomy might become. cc: Sreedhar Nino MD
[2018-03-08] MEDS: ZITHROMAX 500 MG/NS 500 MG/250 ML IVPB IV SCH (13:26)
[2018-03-08] MEDS: XOPENEX NEB INH PRN (16:51)
[2018-03-08] MEDS: PROTONIX IV SCH (17:12)
[2018-03-08] MEDS: VANCOMYCIN 1,200 MG in NS 250 ML IV SCH (17:12)
[2018-03-08] MEDS: SODIUM CHLORIDE 0.9% INJ SCH (17:12)
[2018-03-08] MEDS: LIPITOR PO SCH (20:39)
--- NOTE | 2018-03-09 01:02 | PROGRESS NOTE ---
DATE: 03/08/2018 SUBJECTIVE: Patient notes that she is feeling better. She is complaining of left hip pain. States it hurts when she moves or sits on it. Denies any current nausea, vomiting. Denies any current fevers or chills. PHYSICAL EXAMINATION: Vital Signs: Temperature 98.3, pulse 76, respiratory 22, BP 121/54. General: Patient is awake, alert. She is currently in no respiratory distress. HEENT: Normocephalic. Neck: Supple. CARDIOVASCULAR: Regular rate and rhythm. Is much better controlled on her rhythm over the past 24 to 36 hours. Chest: Clear and nonlabored. Abdomen: Soft, nondistended. Extremities: Moves all extremities. ASSESSMENT: 1. Bibasilar pneumonia. 2. Urinary tract infection. 3. Acalculous cholecystitis. 4. Hypertension. 5. Atrial fibrillation. She currently appears to be back in sinus rhythm but certainly rate controlled. 6. Diabetes. 7. Left hip pain. 8. Methicillin-resistant Staphylococcus aureus. PLAN: 1. She is tolerating Cardizem very well although we did decrease the dose from 60 t.i.d. to 30 t.i.d. due to some bradycardic episodes. She was having lots of pauses as well as her blood pressures were staying in the low 90s systolic. She seems to be tolerating the decreased dose. She will continue it and digoxin. 2. Methicillin resistant Staph aureus bacteremia. We will continue on IV vancomycin. 3. Acalculous cholecystitis. We will attempt to schedule a HIDA scan in the a.m. This was canceled in the past due to her atrial fibrillation and low blood pressures. cc: Joesph Strange MD
[2018-03-09] MEDS: ZOSYN 3.375 GM in NS 50 ML IV SCH ×4 (02:54→20:10)
[2018-03-09] MEDS: XOPENEX NEB INH PRN (08:50)
[2018-03-09] MEDS: LANOXIN PO SCH (08:57)
[2018-03-09] MEDS: ARICEPT PO SCH (08:57)
[2018-03-09] MEDS: CARDIZEM PO SCH ×3 (08:57→20:10)
[2018-03-09] MEDS: TYLENOL WITH CODEINE #3 PO PRN (11:06)
--- NOTE | 2018-03-09 11:06 | Diag Imaging Result Doc PS360 ---
EXAM: HIDA SCAN W/O EJECT. FRACTION HISTORY: Possible acalculous cholecystitis TECHNIQUE: Nuclear medicine HIDA scan COMPARISON: None. FINDINGS: 4.8 mCi Choletec administered. There is normal uptake within the liver. Normal filling of the gallbladder with emptying into the small bowel. IMPRESSION: Normal HIDA scan. Electronically signed by Jonathan Lozada 03/09/2018 11:04 AM
[2018-03-09] MEDS: ZITHROMAX 500 MG/NS 500 MG/250 ML IVPB IV SCH (13:30)
[2018-03-09] MEDS: VANCOMYCIN 1,200 MG in NS 250 ML IV SCH ×2 (17:21→19:24)
[2018-03-09] MEDS: SODIUM CHLORIDE 0.9% INJ SCH (17:22)
[2018-03-09] MEDS: PROTONIX IV SCH (17:22)
[2018-03-09] MEDS: NS 1,000 ML IV SCH (19:24)
[2018-03-09] MEDS: LIPITOR PO SCH (20:10)
[2018-03-09] MEDS ORDERED: TEARISOL OPH SOLUTION OPH PRN (20:47)
[2018-03-10] MEDS: ZOSYN 3.375 GM in NS 50 ML IV SCH ×4 (03:32→23:12)
--- NOTE | 2018-03-10 04:00 | PROGRESS NOTE ---
DATE: 03/09/2018 SUBJECTIVE: Patient notes that she is starting to feel better. Denies any chest pain, palpitations. Denies any fevers or chills. PHYSICAL EXAMINATION: Vital Signs: Temperature 98 degrees, pulse 81, respiratory 18, BP 119/58. General: Patient is awake, alert. She is in no current distress. HEENT: Normocephalic. Neck: Supple. CARDIOVASCULAR: Regular rate. Chest: Clear and nonlabored. Abdomen: Soft. Extremities: Moves all extremities. ASSESSMENT: 1. Bibasilar pneumonia. 2. Urinary tract infection, growing methicillin-resistant Staphylococcus aureus. 3. Acalculous cholecystitis with a normal HIDA scan. 4. Hypertension. 5. Diabetes. PLAN: We will continue patient in the hospital. Continue vancomycin. We will transition to the floor and we will follow. cc: Joesph Strange MD
[2018-03-10] MEDS: CARDIZEM PO SCH ×3 (08:25→22:06)
[2018-03-10] MEDS: ARICEPT PO SCH (08:25)
[2018-03-10] MEDS: LANOXIN PO SCH (08:25)
[2018-03-10] MEDS: TYLENOL WITH CODEINE #3 PO PRN (08:25)
--- NOTE | 2018-03-10 09:34 | GENERAL SURGERY PROGRESS NOTE ---
DATE: 03/10/2018 She is afebrile. Heart rate is 112. Blood pressure 143/98. Her HIDA scan shows patency to her cystic duct. This makes her cholecystitis really nonemergent. I would continue to treat her with antibiotic therapy. This will allow adequate treatment for all her other problems and hopefully avoid surgery. We will continue to be available if needed. cc: Sreedhar Nino MD
[2018-03-10] MEDS: VANCOMYCIN 1,200 MG in NS 250 ML IV SCH (11:27)
[2018-03-10] MEDS: ZITHROMAX 500 MG/NS 500 MG/250 ML IVPB IV SCH (15:25)
[2018-03-10] MEDS: SODIUM CHLORIDE 0.9% INJ SCH (18:36)
[2018-03-10] MEDS: PROTONIX IV SCH (18:36)
[2018-03-10] MEDS: LIPITOR PO SCH (22:06)
--- NOTE | 2018-03-11 02:19 | PROGRESS NOTE ---
DATE: 03/10/2018 SUBJECTIVE: Patient seen and examined by myself on the . She notes that she is feeling much better. In fact, she is asking and trying to convince me to allow her to go home. However, she has not been out of bed. States she is tired when she is sitting in the chair. PHYSICAL EXAMINATION: Vital Signs: Temperature 98 degrees, pulse 81, respiratory 18, BP 119/58. General: Patient is awake, alert, very pleasant to talk with. She is currently in no respiratory distress. She is sitting in the chair attempting to eat breakfast. HEENT: Normocephalic. Neck: Supple. CARDIOVASCULAR: Regular rate. No murmurs. Chest: Clear, nonlabored. Abdomen: Soft, nondistended, nontender. ASSESSMENT: 1. Bibasilar pneumonia, improved. 2. Urinary tract infection, improved. 3. Methicillin-resistant Staphylococcus aureus bacteremia. 4. Atrial fibrillation, currently appears to be in sinus but certainly rate controlled. 5. Acalculous cholecystitis with a negative HIDA scan. 6. Hypertension. 7. Diabetes. 8. Adult failure to thrive. PLAN: The patient is tolerating the Cardizem 30 three times a day very well. Blood pressures are stable. Heart rate has been stable. We will continue vancomycin for her MRSA bacteremia. We will hopefully transition to the floor and get Physical Therapy involved. cc: Joesph Strange MD
[2018-03-11] MEDS: ZOSYN 3.375 GM in NS 50 ML IV SCH ×4 (04:11→22:30)
[2018-03-11] MEDS: VANCOMYCIN 1,200 MG in NS 250 ML IV SCH ×2 (05:17→23:00)
[2018-03-11] MEDS: LANOXIN PO SCH (08:57)
[2018-03-11] MEDS: CARDIZEM PO SCH ×3 (08:57→22:30)
[2018-03-11] MEDS: ARICEPT PO SCH (09:59)
[2018-03-11] MEDS ORDERED: CALMOSEPTINE OINTMENT TOP PRN (11:05)
[2018-03-11] MEDS: ZITHROMAX 500 MG/NS 500 MG/250 ML IVPB IV SCH (14:24)
[2018-03-11] MEDS: PROTONIX IV SCH (17:51)
[2018-03-11] MEDS: SODIUM CHLORIDE 0.9% INJ SCH (17:51)
[2018-03-11] MEDS: LIPITOR PO SCH (22:30)
--- NOTE | 2018-03-11 23:17 | PROGRESS NOTE ---
DATE: 03/11/2018 SUBJECTIVE: Patient states she is feeling better. She is starting to eat better. She is actually sitting up in the chair eating breakfast this morning. PHYSICAL EXAMINATION: Vital Signs: Temperature 98 degrees, pulse 81, respiratory 18, BP 119/58. General: Patient is very pleasant to talk with. She is in no current respiratory distress. HEENT: Normocephalic, atraumatic. Neck: Supple. Cardiovascular: Regular rate. No murmurs. Chest: Clear and nonlabored. No crackles currently. Abdomen: Soft, nondistended, nontender. Extremities: Moves all extremities. Neurologic: No focal changes. ASSESSMENT: 1. Bibasilar pneumonia. 2. Urinary tract infection. 3. Hypertension. 4. Diabetes. 5. Atrial fibrillation with rapid ventricular response, currently back in sinus. 6. Methicillin-resistant Staphylococcus aureus bacteremia. 7. Adult failure to thrive. PLAN: We will continue patient in the hospital and continue to follow. She will most likely need rehab on discharge and will need IV antibiotics for at least 3 weeks. cc: Joesph Strange MD
[2018-03-12] MEDS: ZOSYN 3.375 GM in NS 50 ML IV SCH ×3 (05:00→20:56)
--- NOTE | 2018-03-12 06:33 | EKG Report ---
Test Performed on : 03/12/2018 06:26:36 AM Test Reason : tachycardia Blood Pressure : / mmHG Vent. Rate : 135 BPM Atrial Rate : 267 BPM P-R Int : 000 ms QRS Dur : 082 ms QT Int : 258 ms P-R-T Axes : 000 092 238 degrees QTc Int : 387 ms Atrial fibrillation. with rapid ventricular response. Rightward axis Marked ST abnormality, possible inferolateral subendocardial injury Abnormal ECG When compared with ECG of 06-MAR-2018 04:21, (Unconfirmed) Nonspecific T wave abnormality has replaced inverted T waves in Anterior leads Confirmed by Jerome Cox MD ([id number]) on 04/02/2018 9:56:44 AM
[2018-03-12] MEDS ORDERED: CARDIZEM 100 MG/NS 100 MG/100 ML IVPB IV SCH (07:00)
[2018-03-12] MEDS ORDERED: CARDIZEM 125/NS 125 MG/125 ML IVPB ONE (07:00)
[2018-03-12 07:20] LABS: HEMOGLOBIN 9.5 g/dL (12.0-16.0); MCH 28.2 PG (27-31); MCHC 31.7 g/dL (33-37); MPV 9.6 FL (7.4-10.4); RBC 3.37 XMIL (4.2-5.4); RDW 17.2 % (11.5-14.5); WBC 13.04 X1000 (4.8-10.8)
[2018-03-12 07:50] LABS: AGAP 12; BUN 10 mg/dL (8-22); CALCIUM 8.4 mg/dL (8.8-10.2); CHLORIDE 108 mmol/L (98-107); COSMO 281; CREATININE 0.7 mg/dL (0.5-0.9); ESTIMATED GFR > 60; GLUCOSE 112 mg/dL (70-104); SODIUM 141 mmol/L (136-145); TCO2 21 mmol/L (25-35)
[2018-03-12] MEDS: LANOXIN PO SCH (08:44)
[2018-03-12] MEDS: ARICEPT PO SCH (08:45)
[2018-03-12] MEDS: CARDIZEM PO SCH ×3 (08:45→20:56)
--- NOTE | 2018-03-12 08:47 | Diag Imaging Result Doc PS360 ---
CHEST-PORTABLE - 03/12/2018 INDICATION: tachypnea/diaphoretic COMPARISON: 03/05/2018 FINDINGS: There are moderately extensive bilateral central interstitial infiltrates. There are small bilateral pleural effusions. Heart size is top normal. IMPRESSION: Bilateral interstitial infiltrates. Compatible with pulmonary edema and/or pneumonia. Small bilateral pleural effusions. Electronically signed by Cheng Jones 03/12/2018 8:44 AM
[2018-03-12] MEDS ORDERED: LASIX IV ONE (11:00)
[2018-03-12] MEDS: ATROVENT NEB INH SCH ×4 (11:53→23:27)
[2018-03-12] MEDS: XOPENEX NEB INH PRN ×2 (11:54→15:51)
[2018-03-12] MEDS: POTASSIUM CHLORIDE 20 MEQ/SWI 20 MEQ/100 ML IVPB IV SCH ×2 (13:07→16:28)
[2018-03-12] MEDS: ZITHROMAX 500 MG/NS 500 MG/250 ML IVPB IV SCH (15:16)
[2018-03-12] MEDS ORDERED: XOPENEX NEB ONE ×2 (15:50)
[2018-03-12] MEDS ORDERED: ATIVAN PO ONE (16:59)
[2018-03-12] MEDS: PROTONIX IV SCH (17:09)
[2018-03-12] MEDS: SODIUM CHLORIDE 0.9% INJ SCH (17:09)
[2018-03-12] MEDS: VANCOMYCIN 1,200 MG in NS 250 ML IV SCH (19:11)
--- NOTE | 2018-03-12 19:29 | PROGRESS NOTE ---
DATE: 03/12/2018 SUBJECTIVE: The patient had an eventful day yesterday. She was doing well over the past 2 days, was stable however last night she went back in atrial fibrillation, RVR with heart rate in the 130s, 140s and therefore was moved back to the ICU. The patient unfortunately was asymptomatic. PHYSICAL: Temperature 97.5, pulse 105-130, respiratory 18, BP 118/55.General: Patient is awake, alert, she is very pleasant to talk with. She is in no respiratory distress. HEENT: Normocephalic. Neck: Supple. CARDIOVASCULAR: Irregular rate, irregular rhythm. Chest: Clear nonlabored. Abdomen: Soft. Extremities: Moves all extremities. Neuro: No focal changes. ASSESSMENT: 1. Atrial fibrillation with rapid ventricular response. 2. Bibasilar pneumonia. 3. Urinary tract infection . 4. Methicillin-resistant Staph aureus currently on vancomycin. 5. Hypertension . 6. Diabetes. PLAN: She is back in ICU on Cardizem drip, we will continue to follow, will ask Cardiology to assist, continue antibiotics, further orders as needed. cc: Joesph Strange MD
[2018-03-12] MEDS: LIPITOR PO SCH (20:56)
[2018-03-13] MEDS: ZOSYN 3.375 GM in NS 50 ML IV SCH ×4 (02:38→21:28)
[2018-03-13] MEDS: ATROVENT NEB INH SCH ×6 (03:41→22:55)
[2018-03-13 06:45] LABS: HEMATOCRIT 28.2 % (37.0-47.0); HEMOGLOBIN 9.1 g/dL (12.0-16.0); MCH 28.9 PG (27-31); MCHC 32.3 g/dL (33-37); MCV 89.5 FL (81-99); MPV 10.5 FL (7.4-10.4); RBC 3.15 XMIL (4.2-5.4); RDW 17.3 % (11.5-14.5); WBC 14.14 X1000 (4.8-10.8)
[2018-03-13 07:14] LABS: AGAP 15; ALBUMIN 2.1 g/dL (3.5-5.0); ALKALINE PHOSPHATASE 67 U/L (32-104); BUN 8 mg/dL (8-22); CALCIUM 8.4 mg/dL (8.8-10.2); CHLORIDE 105 mmol/L (98-107); COSMO 281; CREATININE 0.7 mg/dL (0.5-0.9); ESTIMATED GFR > 60; GLUCOSE 83 mg/dL (70-104); GOT 37 U/L (10-30); GPT 20 U/L (10-36); MAGNESIUM 1.2 mg/dL (1.5-2.7); POTASSIUM 3.2 mmol/L (3.5-5.1); SODIUM 142 mmol/L (136-145); TCO2 22 mmol/L (25-35); TOTAL PROTEIN 6.2 g/dL (6.3-8.3)
[2018-03-13] MEDS: ARICEPT PO SCH (08:07)
[2018-03-13] MEDS: LANOXIN PO SCH (08:07)
[2018-03-13] MEDS ORDERED: CARDIZEM 125/NS 125 MG/125 ML IVPB IV SCH (08:59)
[2018-03-13] MEDS ORDERED: CORDARONE 360 MG/D5W 360 MG/200 ML IV.SOLN IV ONE (10:07)
[2018-03-13] MEDS ORDERED: MAGNESIUM SULFATE 2 GM/S.W.I. 2 GM/50 ML IVPB IV ONE (10:10)
[2018-03-13] MEDS ORDERED: KLOR-CON PO ONE (10:10)
[2018-03-13] MEDS: CARDIZEM PO SCH (10:12)
[2018-03-13] MEDS: LASIX IV SCH ×2 (10:24→21:28)
--- NOTE | 2018-03-13 10:34 | PROGRESS NOTE ---
DATE: 03/13/2018 SUBJECTIVE: The patient has no major complaints except shortness of breath today. OBJECTIVE: Vitals: Blood pressure is 150s over 70s, heart rates in the 120s, temperature was 98, saturations were 92% on a Venturi. Cardiovascular: Her heart rate is irregularly irregular and tachycardic. Pulmonary: Pulmonary rales at the bases. GI: Soft, nontender, nondistended. Bowel sounds are positive. LABORATORY DATA: Today showed a potassium 3.2, a magnesium of 1.2. Her white count has gone up a little bit at 14,000. IMAGING: Her chest x-ray yesterday showed pulmonary edema and effusions. She is on Zosyn, vancomycin and azithromycin for possible [id number] pneumonia. PROBLEM LIST: 1. Atrial fibrillation with rapid ventricular response. This is recurrent. She is on Cardizem and uncontrolled. I am just going to switch her to amiodarone and try to get Cardiology to reevaluate her. She is hypokalemic and hypomagnesemic. That may be contributing. We will initiate amiodarone, get Cardiology input and follow. 2. Bibasilar pneumonia. We will continue treatment with antibiotics. 3. She has an MRSA bacteremia actually with 2 cultures that are positive. So in any case, unclear source for that. I am going to repeat her blood cultures today, make sure those have been sterilized. We will continue vancomycin. Again, I am not sure what the source of that is. She was recently in the hospital though with colonoscopy at [place]. I will see if we can try to get those records. 4. Diabetes, we will continue to monitor. 5. Hypokalemia, hypomagnesemia. We will continue treatments, which include supplementation. 6. Volume overload, probably related to poor rate control. Her echo, I do not think shows significant heart failure. We will continue to monitor. I have initiated Lasix and we will follow. TIME SPENT: 32 minute critical care time due to atrial fibrillation with rapid ventricular response and initiation of IV amiodarone. cc: Negro Espitia MD
[2018-03-13] MEDS: VANCOMYCIN 1,200 MG in NS 250 ML IV SCH (11:25)
--- NOTE | 2018-03-13 11:52 | GENERAL SURGERY PROGRESS NOTE ---
DATE: 03/13/2018 TIME: 11:10 in the morning. SUBJECTIVE: Ms. Singh has gone back into atrial fibrillation with a rapid ventricular rate. Her abdomen remained soft and nontender. White count is up to 14,000 now, but her abdomen does not appear to be the cause of it. ASSESSMENT AND PLAN: We will continue to follow along and be available if needed, but currently there was no planned intervention regarding her gallbladder. cc: Sreedhar Nino MD
--- NOTE | 2018-03-13 15:14 | EKG Report ---
Test Performed on : 03/13/2018 11:22:45 AM Test Reason : afib Blood Pressure : / mmHG Vent. Rate : 113 BPM Atrial Rate : 312 BPM P-R Int : 000 ms QRS Dur : 084 ms QT Int : 340 ms P-R-T Axes : 000 050 215 degrees QTc Int : 466 ms Atrial fibrillation. with rapid ventricular response. with premature ventricular or aberrantly conduc rom complexes. Possible Anterior infarct , age undetermined ST & T wave abnormality, consider inferolateral ischemia Abnormal ECG When compared with ECG of 12-MAR-2018 06:26, (Unconfirmed) No significant change was found Confirmed by Jerome Cox MD ([id number]) on 04/02/2018 9:56:37 AM
[2018-03-13] MEDS: CORDARONE 360 MG/D5W 360 MG/200 ML IV.SOLN IV SCH (15:22)
[2018-03-13] MEDS: ZITHROMAX 500 MG/NS 500 MG/250 ML IVPB IV SCH (15:22)
[2018-03-13] MEDS: TYLENOL WITH CODEINE #3 PO PRN ×2 (15:38→22:41)
[2018-03-13] MEDS ORDERED: CORDARONE 540 MG in D5W 289.2 ML IV ONE (16:07)
[2018-03-13] MEDS: HUMULIN R DOSE (PARKWAY) SUBQ SCH ×3 (16:38→20:51)
[2018-03-13 16:46] LABS: BE 2.5 mmoll (-3.0-3.0); BLOOD TYPE ARTERIAL; HCO3-(ACT) 26.8 mmoll (20.0-26.0); METHB 1.6 % (0.0-1.5); O2(CT) 13.6 mL/dL (15.0-23.0); O2HB 93.7 % (95.0-99.0); PCO2(98.6) 36 mmHg (35-45); PO2(98.6) 71 mmHg (60-100); SAMPLE BLOOD; SAO2 97.2 % (95.0-100.0); THB 10.3 g/dL (11.5-17.4); pH(98.6) 7.47 (7.35-7.45)
[2018-03-13 16:49] LABS: ALLEN TEST YES; MODALITY VENTIMASK
[2018-03-13] MEDS ORDERED: LOPRESSOR IV PRN (17:41)
[2018-03-13] MEDS: SODIUM CHLORIDE 0.9% INJ SCH (18:06)
[2018-03-13] MEDS: PROTONIX IV SCH (18:06)
[2018-03-13] MEDS: LOPRESSOR PO SCH (21:28)
[2018-03-13] MEDS: LIPITOR PO SCH (21:28)
--- NOTE | 2018-03-13 23:52 | CARDIOLOGY PROGRESS NOTE ---
DATE: 03/13/2018 SUBJECTIVE: Ms. Singh does not have any pain complaints presently. She does not think her breathing has improved significantly today. She is not having any palpitations. PHYSICAL EXAMINATION: She is afebrile. Her heart rate seems to be running mainly in the 100s to low 120s. Her blood pressure is a bit elevated today anywhere from the 140s to 160s.General: She is in no acute distress. Cardiovascular: She sounds to be in a irregularly irregular tachycardic rhythm consistent with atrial fibrillation which is present on her telemetry. Chest: Has somewhat coarse breath sounds diffusely. Abdomen: Soft, nontender, nondistended. She has no obvious organomegaly. Skin: Warm and dry throughout. PERTINENT DATA: Her EKG today reviewed by me shows atrial fibrillation with a rate of 113 beats per minute. She had a chest x-ray showing bilateral interstitial infiltrates compatible with edema and/or pneumonia. Laboratory data shows a white count of 14, hematocrit 28, platelet count 281,000. Her sodium is 142, potassium 3.2, BUN 8, creatinine 0.7. ASSESSMENT: Ms. Singh is a 77-year-old female with a history of what sounds like a pneumonia as well as issues with cholecystitis. She is in atrial fibrillation that is rapid. PLAN: We will try low-dose beta-blockers in her with metoprolol 25 b.i.d. We will try to use some IV Lopressor as well at a dose of 2.5 mg IV q.6 p.r.n. heart rates greater than 120. If we could achieved reasonable heart rate control at less than 120 I think that would be acceptable at this current time. She is also on oral digoxin. Her electrolytes have been repleted today. cc: Pierre Monge MD
[2018-03-14] MEDS: ATROVENT NEB INH SCH ×6 (02:45→22:30)
[2018-03-14] MEDS: CORDARONE 360 MG/D5W 360 MG/200 ML IV.SOLN IV SCH ×2 (03:30→14:48)
[2018-03-14] MEDS: ZOSYN 3.375 GM in NS 50 ML IV SCH ×2 (03:30→09:24)
[2018-03-14] MEDS: VANCOMYCIN 1,200 MG in NS 250 ML IV SCH (05:22)
[2018-03-14 06:24] LABS: BASO# 0.08 X1000 (0.0-0.2); BASO% 0.3 % (0.0-0.8); EOS# 0.05 X1000 (0.0-0.7); EOS% 0.2 % (0.0-10.0); HEMATOCRIT 32.8 % (37.0-47.0); HEMOGLOBIN 10.5 g/dL (12.0-16.0); IMM GRAN# 0.65 X1000 (0.0-0.04); IMM GRAN% 2.8 % (0.0-0.5); LYMPH# 1.51 X1000 (1.2-3.4); LYMPH% 6.6 % (20.5-51.1); MCH 28.5 PG (27-31); MCV 88.9 FL (81-99); MONO# 1.64 X1000 (0.11-0.59); MONO% 7.1 % (1.7-9.3); MPV 10.1 FL (7.4-10.4); NEUT# 19.11 X1000 (1.4-6.5); PLT 344 X1000 (130-400); RBC 3.69 XMIL (4.2-5.4); RDW 17.4 % (11.5-14.5); WBC 23.04 X1000 (4.8-10.8)
--- NOTE | 2018-03-14 06:30 | Diag Imaging Result Doc PS360 ---
CHEST-PORTABLE - 03/14/2018 INDICATION: dyspnea COMPARISON: 03/12/2018 FINDINGS: Lung volumes are much lower. This causes increased conspicuity of the bilateral infiltrates. There are approximately stable small bilateral pleural effusions. Stable cardiomegaly. IMPRESSION: Much lower lung volumes. Otherwise no definite change from prior. Electronically signed by Cheng Jones 03/14/2018 6:28 AM
[2018-03-14 06:36] LABS: AGAP 14; BUN 14 mg/dL (8-22); CALCIUM 8.6 mg/dL (8.8-10.2); CHLORIDE 104 mmol/L (98-107); COSMO 291; CREATININE 0.9 mg/dL (0.5-0.9); ESTIMATED GFR > 60; GLUCOSE 126 mg/dL (70-104); MAGNESIUM 1.4 mg/dL (1.5-2.7); POTASSIUM 3.5 mmol/L (3.5-5.1); SODIUM 145 mmol/L (136-145); TCO2 27 mmol/L (25-35)
[2018-03-14] MEDS: HUMULIN R DOSE (PARKWAY) SUBQ SCH ×4 (06:40→22:56)
[2018-03-14 07:21] LABS: BE 1.3 mmoll (-3.0-3.0); BLOOD TYPE ARTERIAL; HCO3-(ACT) 25.8 mmoll (20.0-26.0); METHB 1.3 % (0.0-1.5); O2(CT) 14.4 mL/dL (15.0-23.0); PO2(98.6) 61 mmHg (60-100); SAMPLE BLOOD; SAO2 92.9 % (95.0-100.0); THB 11.4 g/dL (11.5-17.4); pH(98.6) 7.32 (7.35-7.45)
[2018-03-14 07:23] LABS: MODALITY NRB; PCO2(98.6) 55 mmHg (35-45)
[2018-03-14 07:24] LABS: O2HB 89.7 % (95.0-99.0)
[2018-03-14 07:25] LABS: ALLEN TEST YES
[2018-03-14] MEDS ORDERED: MORPHINE IV ONE (07:33)
[2018-03-14] MEDS: XOPENEX NEB INH PRN (07:40)
[2018-03-14 08:07] LABS: BANDS 2 % (0-1); LYMPHS 7 % (21-51); MONO 9 % (1-9); SEGS 82 % (42-75)
[2018-03-14] MEDS: LOPRESSOR PO SCH ×2 (09:24→23:00)
[2018-03-14] MEDS: ARICEPT PO SCH (09:24)
[2018-03-14] MEDS: LANOXIN PO SCH (09:24)
[2018-03-14] MEDS: LASIX IV SCH ×2 (09:29→23:00)
--- NOTE | 2018-03-14 10:17 | EKG Report ---
Test Performed on : 03/14/2018 07:47:52 AM Test Reason : SOB Blood Pressure : / mmHG Vent. Rate : 116 BPM Atrial Rate : 127 BPM P-R Int : 000 ms QRS Dur : 082 ms QT Int : 286 ms P-R-T Axes : 000 099 260 degrees QTc Int : 397 ms Atrial fibrillation. with rapid ventricular response. Rightward axis ST & T wave abnormality, consider inferior ischemia ST & T wave abnormality, consider anterolateral ischemia Abnormal ECG When compared with ECG of 13-MAR-2018 11:22, (Unconfirmed) T wave inversion less evident in Lateral leads Unconfirmed Result
[2018-03-14] MEDS ORDERED: NEO-SYNEPHRINE 50 MG in NS 250 ML IV SCH (10:45)
[2018-03-14] MEDS ORDERED: MAGNESIUM SULFATE 2 GM/S.W.I. 2 GM/50 ML IVPB IV ONE (10:45)
[2018-03-14] MEDS ORDERED: VANCOMYCIN IV PER PHARMACY MISC SCH (11:00)
[2018-03-14] MEDS ORDERED: ZYVOX 600 MG/D5W 600 MG/300 ML IVPB IV SCH (11:00)
[2018-03-14] MEDS: MAXIPIME 2 GM in NS 100 ML IV SCH ×2 (11:17→21:57)
--- NOTE | 2018-03-14 11:17 | PROGRESS NOTE ---
DATE: 03/14/2018 SUBJECTIVE: She has had further decompensation overnight and breathing has gotten worse, requiring more oxygen. OBJECTIVE: Blood pressure is 165/85, heart rate of 110, respiratory rate 29, temperature 97 degrees, 100%.Cardiovascular: Irregular rate, regular and tachy. Pulmonary: Rales at the bases. No wheezing. GI: Soft, nontender, nondistended. Bowel sounds are positive. LABORATORY DATA: White count 23, hemoglobin and hematocrit 10 and 32, platelets 344,000, pH 7.32, pCO2 55, pO2 61; that was on a non-rebreather. Mag is 1.4, creatinine is 1.9. Chest x-ray shows interstitial infiltrates with lower lobe infiltration. ASSESSMENT: Hypoxic respiratory failure, possibly multifactorial pneumonia or other issues here. PROBLEM LIST: 1. Atrial fibrillation with rapid ventricular response. We will continue medications. She is on amiodarone. Cardiology is following. She is overall controlled. 2. Bibasilar pneumonia which is likely related to infection. She has a persistent bacteremia, so we will have to kind of see how things will continue. 3. Vancomycin. I do not think Daptomycin is an option or Zyvox because she is bacteremic and she is persistently bacteremic. 4. Diabetes is stable currently. We will continue to follow. 5. Hypokalemia/ hypomagnesemia. We will supplement and follow. DISPOSITION: Pending clinical status but critical care time is 35. I am going to work on transferring her to the main hospital because I think she needs ID input, Pulmonary input and there is not a bed right now we are working on getting her transferred. Continue to follow closely. cc: Negro Espitia MD [facility]
[2018-03-14] MEDS ORDERED: RIFAMPIN 600 MG in NS 100 ML IV SCH (12:00)
[2018-03-14] MEDS ORDERED: CORDARONE 540 MG in D5W 289.2 ML IV ONE (16:34)
[2018-03-14] MEDS: SODIUM CHLORIDE 0.9% INJ SCH (17:43)
[2018-03-14] MEDS: PROTONIX IV SCH (17:43)
[2018-03-14] MEDS: LIPITOR PO SCH (21:57)
[2018-03-14] MEDS ORDERED: VANCOMYCIN 1,200 MG in NS 250 ML IV SCH (23:00)
[2018-03-15] MEDS: CORDARONE 360 MG/D5W 360 MG/200 ML IV.SOLN IV SCH ×3 (02:15→22:44)
[2018-03-15] MEDS: ATROVENT NEB INH SCH ×5 (03:30→23:25)
[2018-03-15] MEDS ORDERED: BLISTEX MEDICATED BERRY LIP BALM TOP PRN (07:20)
[2018-03-15] MEDS ORDERED: CALMOSEPTINE OINTMENT TOP PRN (07:21)
[2018-03-15] MEDS ORDERED: TYLENOL PO PRN (07:41)
[2018-03-15 07:56] LABS: BASO# 0.06 X1000 (0.0-0.2); BASO% 0.3 % (0.0-0.8); EOS# 0.05 X1000 (0.0-0.7); EOS% 0.2 % (0.0-10.0); HEMATOCRIT 26.7 % (37.0-47.0); HEMOGLOBIN 8.5 g/dL (12.0-16.0); IMM GRAN# 0.35 X1000 (0.0-0.04); IMM GRAN% 1.6 % (0.0-0.5); LYMPH# 2.28 X1000 (1.2-3.4); LYMPH% 10.5 % (20.5-51.1); MCH 28.6 PG (27-31); MCHC 31.8 g/dL (33-37); MCV 89.9 FL (81-99); MONO# 2.28 X1000 (0.11-0.59); MONO% 10.5 % (1.7-9.3); NEUT# 16.61 X1000 (1.4-6.5); NEUT% 76.9 % (42.2-75.2); PLT 344 X1000 (130-400); RBC 2.97 XMIL (4.2-5.4); RDW 17.6 % (11.5-14.5); WBC 21.63 X1000 (4.8-10.8)
[2018-03-15] MEDS ORDERED: NEO-SYNEPHRINE 50 MG in NS 250 ML IV SCH (08:00)
[2018-03-15 08:03] LABS: CALCIUM 8.5 mg/dL (8.8-10.2); CREATININE 1.1 mg/dL (0.5-0.9); MAGNESIUM 1.6 mg/dL (1.5-2.7); POTASSIUM 3.3 mmol/L (3.5-5.1)
[2018-03-15 08:36] LABS: ALLEN TEST YES; BE 5.4 mmoll (-3.0-3.0); BLOOD TYPE ARTERIAL; HCO3-(ACT) 29.2 mmoll (20.0-26.0); METHB 1.3 % (0.0-1.5); O2(CT) 13.8 mL/dL (15.0-23.0); PCO2(98.6) 37 mmHg (35-45); PO2(98.6) 198 mmHg (60-100); SAMPLE BLOOD; SAO2 99.9 % (95.0-100.0); THB 9.8 g/dL (11.5-17.4)
[2018-03-15 08:37] LABS: MODALITY BI PAP
--- NOTE | 2018-03-15 09:01 | Diag Imaging Result Doc PS360 ---
EXAM: CT THORAX W/O CONTRAST 03/15/2018 HISTORY: worsening PNA TECHNIQUE: This exam was performed using automated exposure control, adjustment of mA or kV according to patient size, and/or use of iterative reconstruction technique. COMMENT: The current examination is compared with the previous study of 04/15/2016. There are patchy alveolar and groundglass opacities bilaterally throughout the upper lobes and middle lobe. There is dense consolidation of both lower lobes. This is worse than on the previous study. There are fairly large pleural fluid collections bilaterally again this is worse than on the previous study. There is a hiatal hernia. There are coronary calcifications. There is a fairly large precarinal node measuring 19 mm in greatest dimension. This has not changed since the previous study. Otherwise the mediastinum appears to be fairly stable given the lack of contrast on the current study. There are spondylotic changes in the thoracic spine. There are degenerative changes in both sternoclavicular and acromioclavicular joints. IMPRESSION: Bilateral pleural effusions and pneumonia, particularly in the lower lobes. Electronically signed by Matt Myers 03/15/2018 8:59 AM
--- NOTE | 2018-03-15 09:02 | PROGRESS NOTE ---
DATE: 03/15/2018 SUBJECTIVE: The patient has been transferred from [facility] this morning. Upon my examination, she complains of moderate to severe shortness of breath at rest. Currently, she is using a Ventimask at 50%. As per nursing staff, when she was moved over here, her heart rate had been in the range of 130s and 140s but upon my examination, she is in the range of 100s and 110s. OBJECTIVE: Vital Signs: Temperature 97.0 degrees, heart rate 86, respiratory rate 23, blood pressure 123/47, O2 saturation 99% on BiPAP. General Examination: This is a chronically ill- looking and frail, 77-year-old, female lying in bed, in no acute distress. HEENT: Head is normocephalic and atraumatic. Mucous membranes are dry. Neck: No JVD noted. No carotid bruits. No lymphadenopathy. No thyromegaly. Cardiovascular Examination: S1 and S2 heard. Irregularly irregular. Tachycardic. No murmurs, gallops, or rubs noted. Respiratory Examination: There are some coarse breath sounds in both bases. Patient is not using any accessory muscles or having work of breathing. Abdomen: Soft and a little bit distended but nontender to palpation. Bowel sounds present. No organomegaly. Extremities: No clubbing or cyanosis or edema. Peripheral pulses present in both legs. Neurological Examination: The patient is alert and oriented x3. Moves 4 extremities. Cranial nerves 2-12 grossly normal. Laboratory Data: White cell count 21.63, hemoglobin 8.5, hematocrit 26.7, platelets 344,000. Sodium 148, potassium 3.3, creatinine 1.1. ASSESSMENT AND PLAN: 1. Acute respiratory failure. Patient apparently has been using, at [place], BiPAP and Venturi mask. She has not been on oxygen by nasal cannula recently. At this time, considering that she reports feeling very short of breath, I prefer to start BiPAP on this patient. We will check an ABG stat and we will go from there. Pulmonary has been consulted. We will follow recommendations. 2. Bibasilar pneumonia secondary to methicillin-resistant Staphylococcus aureus. Unfortunately, she continues to have persistent bacteremia. She has been started on vancomycin. Renal function is okay. There is a blood culture from admission on March 05 and also from two days ago positive for MRSA. We will continue with vancomycin and currently also is on cefepime 2 g intravenous every 12 hours, and Rifampin as well. Dr. Carter from infectious disease has been consulted. We will follow recommendations. 3. Diabetes mellitus type 2. Patient is on sliding scale insulin and Accu- Cheks before meals and also at bedtime. 4. Atrial fibrillation with rapid ventricular response. The patient is on an amiodarone drip. Also, she is supposed to continue here with digoxin and also metoprolol 25 mg by mouth every 12 hours. At this point, we will continue with the same medications. Cardiology is following. 5. Hypokalemia. We will replete potassium. 6. Gastrointestinal bleeding. Gastroenterology has been consulted. We will follow recommendations. 7. Disposition. We will continue to monitor this patient closely. We will follow recommendations from pulmonary and infectious disease. cc: Ildefonso Kruger MD MTDD
[2018-03-15 09:11] LABS: ANISOCYTOSIS 1+; BANDS 3 % (0-1); LYMPHS 9 % (21-51); MONO 7 % (1-9); SEGS 81 % (42-75)
[2018-03-15] MEDS ORDERED: MAXIPIME 2 GM in NS 100 ML IV SCH (10:00)
[2018-03-15] MEDS: LASIX IV SCH ×2 (10:08→22:45)
[2018-03-15] MEDS: LANOXIN PO SCH (10:08)
[2018-03-15] MEDS: LOPRESSOR PO SCH ×2 (10:09→20:51)
[2018-03-15] MEDS: ARICEPT PO SCH (10:54)
[2018-03-15] MEDS ORDERED: HUMULIN R SUBQ SCH (11:00)
--- NOTE | 2018-03-15 11:30 | INFECTIOUS DISEASE CONSULT REP ---
DATE: 03/15/2018 CONCLUSION: The patient has a methicillin-resistant Staphylococcus aureus bacteremia which I think originates from a methicillin-resistant Staphylococcus aureus pneumonia. The patient may have an immunoglobulin deficiency as well. The patient has been on vancomycin and her creatinine is beginning to creep up. RECOMMENDATIONS: Because the creatinine is increasing, I have discontinued vancomycin. I am also stopping rifampin. I am going to put the patient on daptomycin, which will provide coverage for the methicillin-resistant Staphylococcus aureus bacteremia. I am going to add ceftaroline to treat the patient's presumed methicillin-resistant Staphylococcus aureus pneumonia. Daptomycin, unfortunately, does not get into a significant concentration in the lung and cannot be used for pulmonary infections. Also, because the patient is on daptomycin, I am discontinuing Lipitor because the combination of both can cause an enhanced risk of muscle breakdown. I am not going to be using Zyvox in this patient because she already has anemia and she came in with GI bleeding, which could further increase her anemia, and Zyvox can also cause a decrease in hemoglobin and hematocrit. I have ordered quantitative immunoglobulins. DISCUSSION: I was unable to get a history from the patient. She is wearing a BiPAP mask. Most of the information I have is from the computer. She initially was admitted with black tarry stools, fever, chills, and fatigue. Her chest CT scan shows bilateral pneumonia and pleural effusions. CBC shows a white count of 21,630, hemoglobin 8.5, and platelet count 344,000. The patient's blood gases show a pH of 7.5, a PO2 of 198, and a pCO2 of 37. The creatinine is 1.1. GFR is 48. The patient's blood culture grew methicillin-resistant Staphylococcus aureus. Urine culture was mixed. PAST MEDICAL HISTORY: Positive for coronary artery disease, hypertension, myocardial infarction, asthma, breast cancer, stroke, dementia, and diabetes. PAST SURGICAL HISTORY: Positive for breast lumpectomy. FAMILY HISTORY: Said to be noncontributory. SOCIAL HISTORY: The patient lives with her family. She does not smoke cigarettes, drink alcoholic beverages, or use illicit drugs. ALLERGIES: The patient has a drug allergy to levofloxacin. HOME MEDICATIONS: Include Lipitor, Aricept, lisinopril, metformin, and Protonix. PHYSICAL EXAMINATION: Vital Signs: Temperature is 97 degrees, pulse 86, respirations 23, blood pressure 123/47. General: The patient is an ill-appearing, elderly female. She is in no acute distress. Head, Eyes, Ears, Nose, and Throat: The patient is wearing a BiPAP mask now. There is no drainage from the nose or ears. Neck: No meningismus. Thorax: No increased AP diameter of the chest. Lungs: Clear. Cardiovascular: Heart rate is irregular. Abdomen: Soft and not tender. Neurologic: The patient is awake. She did follow requests to move her extremities. There was no tremor. Integument: No rash noted. Thank you for the consult. cc: Omari Carter MD [facility]
[2018-03-15] MEDS: MUCOMYST 20% INH SCH ×2 (11:42→19:27)
[2018-03-15] MEDS: TEFLARO 600 MG in NS 250 ML IV SCH ×2 (11:48→22:45)
[2018-03-15] MEDS ORDERED: RIFAMPIN 600 MG in NS 100 ML IV SCH (12:00)
[2018-03-15] MEDS: CUBICIN 500 MG in NS 100 ML IV SCH (13:08)
[2018-03-15] MEDS ORDERED: LASIX IV ONE (13:09)
[2018-03-15] MEDS: D5W 1,000 ML IV SCH (13:32)
[2018-03-15] MEDS: HUMULIN R SUBQ SCH ×3 (15:15→21:46)
[2018-03-15] MEDS ORDERED: PROTONIX IV SCH (17:00)
[2018-03-15] MEDS ORDERED: VANCOMYCIN 1,200 MG in NS 250 ML IV SCH (17:00)
[2018-03-15] MEDS: PROTONIX IV SCH (17:50)
--- NOTE | 2018-03-15 19:15 | Diag Imaging Result Doc PS360 ---
CHEST-PORTABLE - 03/15/2018 INDICATION: cvl placement COMPARISON: 03/14/2018 FINDINGS: There is a left central line in good position with the catheter tip at the SVC. There is cardiomegaly. There are significant bilateral infiltrates and small bilateral pleural effusions stable from prior. IMPRESSION: Good left central line placement. Electronically signed by Cheng Jones 03/15/2018 7:12 PM
[2018-03-15] MEDS: XOPENEX NEB INH PRN ×2 (19:27→23:25)
[2018-03-15] MEDS ORDERED: LIPITOR PO SCH (21:00)
[2018-03-16] MEDS: HUMULIN R SUBQ SCH ×6 (02:25→23:02)
[2018-03-16] MEDS: D5W 1,000 ML IV SCH ×2 (02:26→16:45)
[2018-03-16] MEDS: ATROVENT NEB INH SCH ×7 (03:20→22:52)
--- NOTE | 2018-03-16 05:01 | PULMONOLOGY CONSULTATION ---
DATE: 03/15/2018 REASON FOR CONSULTATION: Respiratory failure. HISTORY OF PRESENT ILLNESS: Ms. Singh is a 77-year-old female who was admitted to [facility] on 03/05/2018, after presenting with fevers, chills, and tarry stools along with fatigue. The patient had previously been seen in [facility] and was scheduled for a colonoscopy, according to the intake H and P. There was some concerns about possible acalculous cholecystitis, and Dr. Nino was consulted, who agreed that she likely had acalculous cholecystitis. The patient's initial chest x-ray revealed bibasilar infiltrates. Subsequent blood cultures are positive for methicillin-resistant Staph aureus. Her hospital course has been complicated further by atrial fibrillation and rapid ventricular response, and no surgical intervention has occurred. The patient was at the [facility], and has been transferred to [facility] due to progressive increase in oxygen requirements and progressive pulmonary dysfunction. PAST MEDICAL HISTORY/PROBLEM LIST: 1. Hypertension. 2. Coronary artery disease with prior myocardial infarction. 3. History of asthma. 4. History of strokes. 5. History of dementia. 6. Type 2 diabetes mellitus. 7. History of breast cancer. SOCIAL HISTORY: The patient has no history of alcohol or tobacco. FAMILY HISTORY: Noncontributory. REVIEW OF SYSTEMS: Cannot be obtained. PHYSICAL EXAMINATION: General: Reveals an elderly white female who is on BiPAP. She currently appears comfortable without increased work of breathing. Vital signs: Blood pressure 158/75, heart rate 74, respiratory rate 24, oxygen saturation 100%. HEENT: Pupils are equal and reactive. Oropharynx is clear, but evaluation is limited with BiPAP in place. Neck: Supple. Chest: Reveals coarse rhonchi bilaterally with decreased breath sounds in both lung bases. Cardiac: S1, S2 with a regular rhythm. Rate is controlled. Abdomen: Soft. Extremities: Slightly cool to the touch. LABORATORIES: CT scan of the thorax reveals bilateral pleural effusions, dense consolidation in both lower lobes, mild mediastinal adenopathy, and a hiatal hernia. White blood count 21.6 thousand, hemoglobin 8.5, platelet count 344,000. Arterial blood gas this morning: pH 7.50, pCO2 of 37, pO2 of 198 on 80% BiPAP. Blood cultures are reviewed. She had 2 positive blood cultures on 03/05/2018, and she has had 2 additional positive blood cultures, on 03/13/2018. Chemistries: Sodium 148, potassium 3.3, chloride 105, bicarbonate 28, BUN 22, creatinine 1.2. Last albumin 116. In 2019, it was 2.1. IMPRESSION: A 77-year-old with methicillin-resistant Staphylococcus aureus pneumonia, methicillin- resistant Staphylococcus aureus bacteremia, possible acalculous cholecystitis, large bilateral pleural effusions, hypoxemic respiratory failure, hypernatremia, protein calorie malnutrition. The patient currently is comfortable on BiPAP, but she is at risk for decompensation. The patient has significant pleural effusions, and it is hoped with diuresis, she will improve. RECOMMENDATIONS: 1. Continue BiPAP for hypoxemic respiratory failure. 2. Continue antibiotics per Infectious Disease for persistent MRSA bacteremia. Prior transthoracic echo did not reveal endocarditis. 3. Diuresis for pleural effusions as tolerated. 4. Continue ICU monitoring. We will maintain a low threshold for intubation and mechanical ventilation if she has evidence of progressive decompensation. cc: Cliff Amaya MD
[2018-03-16 06:00] LABS: BASO# 0.05 X1000 (0.0-0.2); BASO% 0.3 % (0.0-0.8); EOS# 0.18 X1000 (0.0-0.7); HEMATOCRIT 27.7 % (37.0-47.0); HEMOGLOBIN 8.8 g/dL (12.0-16.0); IMM GRAN# 0.23 X1000 (0.0-0.04); IMM GRAN% 1.3 % (0.0-0.5); LYMPH# 2.63 X1000 (1.2-3.4); LYMPH% 15.3 % (20.5-51.1); MCH 28.6 PG (27-31); MCHC 31.8 g/dL (33-37); MCV 89.9 FL (81-99); MONO# 1.71 X1000 (0.11-0.59); MONO% 9.9 % (1.7-9.3); MPV 11.1 FL (7.4-10.4); NEUT# 12.42 X1000 (1.4-6.5); NEUT% 72.2 % (42.2-75.2); PLT 306 X1000 (130-400); RBC 3.08 XMIL (4.2-5.4); RDW 17.7 % (11.5-14.5); WBC 17.22 X1000 (4.8-10.8)
[2018-03-16] MEDS: TYLENOL WITH CODEINE #3 PO PRN (06:05)
[2018-03-16 06:22] LABS: CALCIUM 7.7 mg/dL (8.8-10.2); CREATININE 1.3 mg/dL (0.5-0.9)
[2018-03-16 06:33] LABS: POTASSIUM 2.3 mmol/L (3.5-5.1)
[2018-03-16] MEDS ORDERED: POTASSIUM CHLORIDE 40 MEQ/SWI 40 MEQ/100 ML IVPB IV ONE (06:46)
[2018-03-16] MEDS ORDERED: POTASSIUM CHLORIDE 20% LIQUID PO ONE (06:46)
--- NOTE | 2018-03-16 07:26 | OPERATIVE NOTE ---
PROCEDURE DATE: 03/15/2018 PROCEDURE PERFORMED: Left internal jugular vein central venous line placement. SURGEON: Sreedhar Nino MD. INDICATIONS: I have been requested to place a central line by Dr. Hoskins. The patient has poor venous access. PROCEDURE IN DETAIL: The patient was placed in Trendelenburg. The left side of the neck and upper anterior chest were prepped and draped in a sterile fashion. We imaged the left internal jugular vein. It was compressible. We anesthetized the skin, made a small stab incision and accessed the left internal jugular vein under direct visualization. We then passed a wire into the vein. It went easily. We then dilated the tract and then passed the triple-lumen catheter to 19 cm. We were able to aspirate blood from each lumen and flush each lumen with saline. We secured the flange to the skin with the silk contained within the tray. A BioStep patch was placed at the exit site and a sterile OpSite was applied. She tolerated it well. A chest x-ray was ordered. cc: Sreedhar Nino MD
[2018-03-16] MEDS: XOPENEX NEB INH SCH ×5 (07:31→22:51)
[2018-03-16] MEDS: XOPENEX NEB INH PRN (07:31)
[2018-03-16] MEDS: MUCOMYST 20% INH SCH ×2 (07:32→19:46)
[2018-03-16] MEDS: LANOXIN PO SCH (08:54)
[2018-03-16] MEDS: CORDARONE 360 MG/D5W 360 MG/200 ML IV.SOLN IV SCH (08:55)
[2018-03-16] MEDS: LOPRESSOR PO SCH ×2 (08:55→20:31)
[2018-03-16] MEDS ORDERED: MAGNESIUM SULFATE 2 GM/S.W.I. 2 GM/50 ML IVPB IV ONE (09:03)
[2018-03-16 09:48] LABS: ALLEN TEST YES; BE 9.2 mmoll (-3.0-3.0); BLOOD TYPE ARTERIAL; HCO3-(ACT) 32.1 mmoll (20.0-26.0); METHB 1.2 % (0.0-1.5); O2(CT) 9.8 mL/dL (15.0-23.0); O2HB 97.2 % (95.0-99.0); PCO2(98.6) 37 mmHg (35-45); PO2(98.6) 182 mmHg (60-100); SAMPLE BLOOD; SAO2 99.9 % (95.0-100.0); THB 6.8 g/dL (11.5-17.4); pH(98.6) 7.55 (7.35-7.45)
--- NOTE | 2018-03-16 09:49 | Diag Imaging Result Doc PS360 ---
EXAM: CHEST-PORTABLE 03/16/2018 HISTORY: abnormal exam TECHNIQUE: AP portable at 0930 COMMENT: There are bilateral pleural effusions particularly on the right. There is interstitial and alveolar opacity throughout much of both lungs. This is not changed appreciably since 03/15/2017 although there has been some improvement with respect to the left lower lobe since 03/14/2018. IMPRESSION: Pulmonary edema and/or pneumonia with pleural effusions particularly on the right. Electronically signed by Matt Myers 03/16/2018 9:47 AM
[2018-03-16 09:50] LABS: MODALITY BI PAP
[2018-03-16] MEDS ORDERED: CALCIUM GLUCONATE 2 GM in NS 100 ML IV ONE (10:00)
--- NOTE | 2018-03-16 10:17 | PROGRESS NOTE ---
DATE: 03/16/2018 SUBJECTIVE: The patient, upon my examination today, is more awake, able to answer all my questions. She reports feeling less short of breath. Denies any other complaints. Denies any chest pain or any palpitations. OBJECTIVE: Vital Signs: Temperature 97.5 degrees, heart rate 79, respiratory rate 19, blood pressure 128/37, O2 saturation 100% on BiPAP. General examination: This is a chronically ill- looking, 77-year-old female lying in bed, in no acute distress. HEENT : Head is normocephalic, atraumatic. Mucous membranes dry. Neck: No JVD noted. No carotid bruits. No lymphadenopathy. No thyromegaly. Cardiovascular: S1 and S2 heard. Irregularly irregular and tachycardic, but no murmurs, gallops, or rubs noted. Respiratory: Coarse breath sounds in the anterior and posterior pulmonary estrada. The patient is not using any accessory muscles or having work of breathing. Abdomen: Soft, a little bit distended but nontender to palpation. No signs of peritoneal irritation. Bowel sounds present. No organomegaly. Extremities : No clubbing, cyanosis, or edema. Peripheral pulses present in both legs. Neurological: Patient alert and oriented x3. Moves 4 extremities. Cranial nerves 2-12 grossly normal. LABORATORY DATA: White cell count 17.22, hemoglobin 8.8, hematocrit 27.7, platelets 206,000. BMP is remarkable for creatinine 1.3, potassium 2.3, and magnesium 1.4. ASSESSMENT AND PLAN: 1. Acute respiratory failure. Currently, this patient is requiring BiPAP. Clinically, she reports feeling better, less shortness of breath. At this point, will continue with BiPAP and see if we can wean off oxygen to Ventimask. ABG from yesterday showed pH 7.[address] Amaya from Pulmonary following this patient. Will follow recommendations. 2. Bibasilar pneumonia secondary to methicillin-resistant Staphylococcus aureus. The patient was admitted on 03/05/2018 and the blood culture from that day was positive for methicillin- resistant Staphylococcus aureus. Cultures from 03/13/2018 were also positive for methicillin- resistant Staphylococcus aureus. We have consulted Dr. Carter from infectious disease and currently he is on daptomycin for treating the methicillin-resistant Staphylococcus aureus bacteremia and ceftaroline to treat the pneumonia. We ordered blood cultures yesterday and will see tomorrow and the day after if they are still positive or not. Oxygen needs are still high with BiPAP. The patient is supposed to receive breathing treatments with Atrovent and levalbuterol every 4 hours scheduled. Will continue with the same management. 3. Atrial fibrillation with rapid ventricular response. The patient is on amiodarone drip. The patient is on digoxin and metoprolol by mouth. Dose was started yesterday. Heart rate is, in comparing with yesterday, better, in the range of 72 with high of 80 and low of 68. Will continue with the same management. 4. Hypokalemia. Potassium is still very low because of Lasix. Will replete potassium today. 5. Pulmonary edema. The patient is on Lasix q.12 hours. Will continue with the same management. 6. Gastrointestinal bleeding. Hemoglobin has been stable so far. Gastroenterology has been consulted. Will follow their recommendations. 7. Acalculous cholecystitis. Aware. DISPOSITION: Will continue to monitor this patient in the intensive care unit. cc: Ildefonso Kruger MD MTDD
[2018-03-16] MEDS: ARICEPT PO SCH (10:23)
[2018-03-16] MEDS: LASIX IV SCH ×2 (10:37→23:02)
[2018-03-16] MEDS: POTASSIUM CHLORIDE 60 MEQ in NS 500 ML IV SCH ×2 (10:37→16:45)
[2018-03-16] MEDS: TEFLARO 600 MG in NS 250 ML IV SCH ×2 (10:37→23:02)
[2018-03-16 14:11] LABS: CALCIUM 8.8 mg/dL (8.8-10.2); CREATININE 1.3 mg/dL (0.5-0.9); MAGNESIUM 2.4 mg/dL (1.5-2.7); POTASSIUM 3.2 mmol/L (3.5-5.1)
[2018-03-16] MEDS: CUBICIN 500 MG in NS 100 ML IV SCH (14:44)
[2018-03-16] MEDS: PROTONIX IV SCH (16:45)
[2018-03-16] MEDS: LOPRESSOR IV PRN (19:16)
[2018-03-16] MEDS: CORDARONE PO SCH (20:30)
[2018-03-17] MEDS: HUMULIN R SUBQ SCH ×6 (01:11→20:59)
[2018-03-17] MEDS: XOPENEX NEB INH SCH ×6 (03:33→23:36)
[2018-03-17] MEDS: ATROVENT NEB INH SCH ×6 (03:33→23:34)
[2018-03-17 04:54] LABS: ALLEN TEST YES; BE 5.9 mmoll (-3.0-3.0); BLOOD TYPE ARTERIAL; HCO3-(ACT) 29.5 mmoll (20.0-26.0); O2HB 96.9 % (95.0-99.0); PCO2(98.6) 39 mmHg (35-45); PO2(98.6) 105 mmHg (60-100); SAMPLE BLOOD; SAO2 99.4 % (95.0-100.0); THB 11.6 g/dL (11.5-17.4); pH(98.6) 7.49 (7.35-7.45)
[2018-03-17 04:55] LABS: MODALITY BI PAP
[2018-03-17 04:59] LABS: BASO% 0.5 % (0.0-0.8); EOS% 1.1 % (0.0-10.0); HEMATOCRIT 26.5 % (37.0-47.0); HEMOGLOBIN 8.5 g/dL (12.0-16.0); IMM GRAN% 1.6 % (0.0-0.5); LYMPH# 3.02 X1000 (1.2-3.4); LYMPH% 16.5 % (20.5-51.1); MCH 28.8 PG (27-31); MCHC 32.1 g/dL (33-37); MCV 89.8 FL (81-99); MONO# 1.54 X1000 (0.11-0.59); MONO% 8.4 % (1.7-9.3); MPV 11.2 FL (7.4-10.4); NEUT# 13.17 X1000 (1.4-6.5); NEUT% 71.9 % (42.2-75.2); PLT 313 X1000 (130-400); RBC 2.95 XMIL (4.2-5.4); RDW 17.8 % (11.5-14.5); WBC 18.33 X1000 (4.8-10.8)
[2018-03-17 05:24] LABS: CALCIUM 8.3 mg/dL (8.8-10.2); CREATININE 1.4 mg/dL (0.5-0.9); POTASSIUM 2.9 mmol/L (3.5-5.1)
[2018-03-17] MEDS: D5W 1,000 ML IV SCH ×2 (05:38→17:41)
--- NOTE | 2018-03-17 05:44 | INFECTIOUS DISEASE PROGRESS NO ---
DATE: 03/16/2018 PRESENT ILLNESS: The patient has methicillin-resistant Staph aureus pneumonia, and an associated bacteremia. The patient's immunoglobulin levels are normal. MEDICATIONS: The patient is on a combination of daptomycin for the bacteremia, and ceftaroline for the pneumonia. PHYSICAL EXAMINATION: Vital Signs: Temperature is 99 degrees, pulse 83, respirations 22, blood pressure 115/45. General: This is an ill-appearing elderly female. She is in no acute distress, however. Head, Eyes, Ears, Nose, and Throat: She can hear my spoken words and see near objects. She does not have any white coating on her tongue. Neck: No meningismus. The patient has a left-sided internal jugular vein catheter in place. Lungs: There were a few rhonchi bilaterally. Cardiovascular: Heart rate is irregular. Abdomen: Soft and nontender. Neurologic: The patient is awake. She did move her extremities to request. There is no tremor. LAB AND X-RAY: The patient's CBC shows a white count of 17,220, hemoglobin 8.8, and platelet count 306,000. Blood gases show a pH of 7.55, a PO2 of 182, and a pCO2 of 37. Creatinine is 1.3. GFR is 40. Chest x-ray shows bilateral infiltrates and effusions. ASSESSMENT AND PLAN: Patient has methicillin-resistant Staph aureus pneumonia and associated bacteremia. My plan is to continue with ceftaroline and daptomycin. COMORBIDITIES: She is elderly. She has had a stroke. She also has diabetes. cc: Omari Carter MD
--- NOTE | 2018-03-17 06:31 | PULMONOLOGY PROGRESS NOTE ---
DATE: 03/16/2018 SUBJECTIVE: The patient is currently on BiPAP. She is awake and alert. She. She appears comfortable. She has less work of breathing than yesterday during her initial evaluation. OBJECTIVE: Blood pressure 124/59, heart rate 91, respiratory rate 34, oxygen saturation 98% on 50% FiO2.HEENT: Pupils are equal and reactive. Oropharynx evaluation is made with BiPAP in place. Neck: Is supple. Chest: Reveals shallow breath sounds bilaterally with crackles in the lung bases. Cardiac: S1-S2. Abdomen: Soft and nontender. Extremities: Reveal trace edema. Neurologic: Cranial nerves 2-12 appear grossly intact. LABORATORIES: Sodium 142, potassium 3.2, chloride 100, bicarbonate 29, BUN 16, creatinine 1.3. White blood count 17.2, hemoglobin 8.8, platelet count 306,000. Arterial blood gas reveals a pH of 7.55, pCO2 37, pO2 of 182. Immunoglobulin levels are normal. Chest x-ray reveals bilateral effusions with pulmonary infiltrates. There has been slight improvement in the left base over the last 2 days. Blood cultures- no new blood culture data. IMPRESSION: 1. A 77-year-old with possible acalculous cholecystitis. 2. Methicillin-resistant Staph aureus pneumonia. 3. Methicillin-resistant Staph aureus bacteremia. 4. Pleural effusions. 5. Hypoxemic respiratory failure. The patient is stable to marginally improved but remains critically ill. RECOMMENDATIONS: 1. Continue diuretics as tolerated. 2. Continue antibiotics for methicillin-resistant Staph aureus pneumonia and bacteremia. 3. Cycle BiPAP as tolerated. 4. Continue ICU monitoring. She remains critically ill and may require intubation if she decompensates. cc: Cliff Amaya MD
[2018-03-17] MEDS: MUCOMYST 20% INH SCH ×2 (07:36→19:35)
--- NOTE | 2018-03-17 07:46 | Diag Imaging Result Doc PS360 ---
CHEST-PORTABLE - 03/17/2018 INDICATION: respiratory failure COMPARISON: 03/16/2018 FINDINGS: Stable left central line. Stable cardiomegaly. There has been improvement in the central pulmonary edema. Stable bilateral pleural effusions. IMPRESSION: Improvement in the central pulmonary edema. No new abnormality. Electronically signed by Cheng Jones 03/17/2018 7:44 AM
[2018-03-17] MEDS: LOPRESSOR PO SCH ×2 (08:37→20:21)
[2018-03-17] MEDS: ARICEPT PO SCH (08:37)
[2018-03-17] MEDS: CORDARONE PO SCH ×2 (08:37→20:21)
[2018-03-17] MEDS: LASIX IV SCH (10:01)
[2018-03-17] MEDS: TEFLARO 600 MG in NS 250 ML IV SCH ×2 (10:01→23:57)
[2018-03-17] MEDS: POTASSIUM CHLORIDE 60 MEQ in NS 500 ML IV SCH ×2 (10:45→17:36)
--- NOTE | 2018-03-17 11:09 | PROGRESS NOTE ---
DATE: 03/17/2018 SUBJECTIVE: Patient definitely is more awake today. Able to answer all my question. She reports less short of breath. Denies any fever or chills. Denies any chest pain. OBJECTIVE: Vital Signs: Temperature 98.6 degrees, heart rate 91, respiratory rate 21, blood pressure 116/76, O2 saturation 100% on Ventimask 40%. General Examination: This is a chronically ill-looking, 77-year-old female, lying in bed in no acute distress. HEENT: Head is normocephalic, atraumatic. Oral mucosal membranes dry. Neck: No JVD noted. No carotid bruits. No lymphadenopathy. No thyromegaly. Cardiovascular exam: S1, S2 heard. Irregularly irregular and tachycardic, but no murmurs, gallops, or rubs noted. Respiratory exam: Breath sounds still present in both pulmonary estrada anterior and posterior. The patient is not using any accessory muscles or having work of breathing. Abdomen: Soft, a little bit distended, but nontender to palpation. No signs of peritoneal irritation. Bowel sounds present. No organomegaly. Extremities: No clubbing, cyanosis, or edema. Peripheral pulses present in both legs. Neurological exam: Patient alert and oriented x3. Moves 4 extremities. LABORATORY DATA: White cell count 18.33, hemoglobin 8.5, hematocrit 26.5, platelets 313. ABG that shows pH 7.49 with pCO2 39, PO2 105. BMP reveals creatinine 1.4 with a potassium 2.9. ASSESSMENT AND PLAN: 1. Acute hypoxemic respiratory failure. Her oxygen needs are getting a little bit better requiring Ventimask daily. Clinically, she is not complaining of any shortness of breath any more. So, at this point we will continue with the same oxygen supplementation. We will see we can wean off oxygen to nasal cannula. Arterial blood gas shows acute gas exchange. We will continue to monitor. Dr. Amaya from Pulmonary following this patient. We will follow recommendations. Help appreciated. 2. Bibasilar pneumonia secondary to methicillin-resistant Staphylococcus aureus. Cultures from 2 days ago showed no growth. Dr. Carter from Infectious Disease is following this patient. Currently, she is on ceftaroline to treat pneumonia and also daptomycin to treat the methicillin-resistant Staphylococcus aureus bacteremia. We will continue with breathing treatments; in this case, levalbuterol and Atrovent. We will go from there. 3. Atrial fibrillation with rapid ventricular response. Patient is not on Cardizem drip. Cardiology following this patient. We will follow recommendation. 4. Hypokalemia potassium is low again, so we will replete it today. 5. Pulmonary edema. Because of renal dysfunction, we have decided to hold furosemide for 48 hours and we will see how this patient does. 6. Gastrointestinal bleeding. Dr. Cuba from Gastroenterology will scope this patient today; we will see what it shows. 7. Acalculous cholecystitis, aware. cc: Ildefonso Kruger MD MTDD
[2018-03-17] MEDS: CUBICIN 500 MG in NS 100 ML IV SCH (12:39)
[2018-03-17] MEDS: SODIUM CHLORIDE 0.9% INJ SCH (16:36)
[2018-03-17] MEDS: PROTONIX IV SCH (16:36)
--- NOTE | 2018-03-17 17:31 | GASTROENTEROLOGY CONSULTATION ---
DATE: 03/17/2018 REASON FOR CONSULTATION: Question GI bleed. HISTORY OF PRESENT ILLNESS: Ms. Singh is a 77-year-old woman with a past medical history of hypertension, diabetes, GERD, hyperlipidemia, diastolic CHF, dementia, asthma, prior strokes, and history of breast cancer who was initially admitted to [facility] on March 05, 2018 after presenting with worsening shortness of breath, fatigue and black stools. There , she was found to have atrial fibrillation with RVR as well as bibasilar pneumonia and bacteremia from MRSA. The patient was ultimately transferred to [facility] for [facility] given worsening respiratory status with increasing O2 requirements. During her hospitalization, Hemoccult blood testing was negative. Hemoccult stool testing was negative. She was seen by surgery who thought that possibly she had acalculous cholecystitis. Today, she reports the absence of nausea, vomiting, dysphagia, abdominal pain, diarrhea or constipation. She is not on any blood thinners or NSAIDs. She has never had an endoscopy or colonoscopy in the past. No family history of GI malignancies. REVIEW OF SYSTEMS: Notable for shortness of breath, fatigue, dark urine and stool. Negative for abdominal pain, diarrhea, or abnormal weight loss. No chest pain. No headache. The rest of the review of systems was unable to be obtained. PAST MEDICAL HISTORY: Hypertension, diabetes, GERD, hyperlipidemia, diastolic CHF, coronary artery disease, dementia, asthma, prior strokes, and history of breast cancer. SOCIAL HISTORY: No history of tobacco, alcohol or drug use. FAMILY HISTORY: No family history of GI malignancies. PHYSICAL EXAM: Vital signs: Temperature 98.5, heart rate 95, respiratory rate 24, blood pressure 115/58, and oxygen saturation 99% on Venturi mask with 50% oxygen. General: The patient is awake and alert. No acute distress. Mild respiratory discomfort. HEENT: Extraocular motor intact. Mucous membranes are moist. Neck: No lymphadenopathy. No JVD. Cardiac: Irregularly irregular. No murmurs. Pulmonary: Decreased breath sounds throughout. No wheezing or crackles. Abdomen: Soft, nontender and nondistended. Normoactive bowel sounds. No rebound or guarding. No ascites. Extremities: No cyanosis, clubbing or edema. Neurological: Nonfocal. Moving all extremities symmetrically. LABORATORY: WBC 18.23, hemoglobin 8.5 from 8.8. Initial hemoglobin on admission on 03/05/2018 was 10.0. Platelets 331,000. MCV 89.8. Sodium 141, potassium 2.9, chloride 101, CO2 27, BUN 24, creatinine 1.4, glucose 123. ABG showed a pH of 7.49, pCO2 of 39, pO2 of 105. Chest x-ray showed improvement of central pulmonary edema with no new abnormality. ASSESSMENT AND PLAN: Ms. Singh is a pleasant 77-year-old woman who was admitted with acute hypoxic respiratory failure in the setting of MRSA pneumonia and bacteremia complicated by atrial fibrillation with RVR and possible acalculous cholecystitis. GI was consulted given her reported history of black, tarry stool and anemia. Since admission to [place], she has not required any blood transfusions and Hemoccult testing was negative. She denies a history of having prior endoscopic evaluation. She remains on antibiotics for her recent positive blood cultures and pneumonia, and her respiratory status continues to be tenuous. At this time, I would not recommend endoscopic evaluation unless the patient develops overt bleeding with melena or bright red blood per rectum or persistently downtrending hemoglobin. I would recommend that she continued to have her hemoglobin checked daily and transfuse as needed to maintain a hemoglobin between seven and eight as needed. I would continue GI prophylaxis with PPI twice a day. This can be transitioned to oral medication after resuming diet. #MRSA PNA, she is currently on antibiotics as per ID. #Atrial fibrillation. Followed by cardiology. Currently on amiodarone and metoprolol for rate control as well as digoxin. #Hypoxic respiratory failure. Currently managed by primary team. She is currently being diuresed with Lasix. #Hypokalemia. Replete as needed. #Pleural effusion. Followed by pulmonary. We will continue to follow this patient. Please call with any questions or concerns. [facility]
[2018-03-17] MEDS: LOPRESSOR IV PRN (19:43)
--- NOTE | 2018-03-18 00:06 | INFECTIOUS DISEASE PROGRESS NO ---
DATE: 03/17/2018 PRESENT ILLNESS: The patient has methicillin-resistant Staph aureus pneumonia and associated bacteremia. The patient does not have an immunoglobulin deficiency. Her levels are in the normal range. MEDICATIONS: This is the second day of treatment with a combination of daptomycin for the patient's bacteremia and ceftaroline for her pneumonia. PHYSICAL EXAMINATION: Vital Signs: Temperature is 98.8 degrees, pulse 101, respirations 21, blood pressure 111/84. General: This is an ill-appearing elderly female. She coughs quite a bit. She appears dyspneic, even at rest. Head, Eyes, Ears, Nose, and Throat: She can hear my spoken words and see near objects. She does not have any white coating on her tongue. Neck: No stiffness. Thorax: The patient has an increased AP diameter of the chest. Lungs: There were bilateral rhonchi. Cardiovascular: Heart rate is irregular. Abdomen: Soft and not tender. Neurologic: The patient is awake. She can move her extremities. There is no tremor. LAB AND X-RAY: Chest x-ray shows improvement in the pulmonary venous congestion. CBC shows a white count of 18,330, hemoglobin 8.5, and platelet count 313,000. Creatinine is 1.4. GFR is 37. The blood gases show a pH of 7.49, a PO2 of 105, and pCO2 of 39. Repeat blood cultures are sterile. ASSESSMENT AND PLAN: The patient has methicillin-resistant Staph aureus pneumonia and bacteremia. I plan to continue ceftaroline and daptomycin. COMORBIDITIES: The patient is elderly, she has had a stroke, and she also is a diabetic. cc: Omari Caretr MD
[2018-03-18] MEDS: HUMULIN R SUBQ SCH ×6 (01:01→21:56)
[2018-03-18] MEDS: TYLENOL WITH CODEINE #3 PO PRN (01:11)
[2018-03-18] MEDS: LOPRESSOR IV PRN (01:11)
[2018-03-18] MEDS: XOPENEX NEB INH SCH ×6 (03:34→23:30)
[2018-03-18] MEDS: ATROVENT NEB INH SCH ×6 (03:34→23:30)
[2018-03-18 05:24] LABS: ALLEN TEST YES; BE 3.6 mmoll (-3.0-3.0); BLOOD TYPE ARTERIAL; HCO3-(ACT) 27.7 mmoll (20.0-26.0); METHB 0.8 % (0.0-1.5); O2(CT) 11.9 mL/dL (15.0-23.0); O2HB 96.4 % (95.0-99.0); PCO2(98.6) 39 mmHg (35-45); PO2(98.6) 87 mmHg (60-100); SAMPLE BLOOD; SAO2 98.9 % (95.0-100.0); THB 8.7 g/dL (11.5-17.4); pH(98.6) 7.46 (7.35-7.45)
[2018-03-18 05:26] LABS: MODALITY BI PAP
[2018-03-18 05:26] LABS: BASO# 0.04 X1000 (0.0-0.2); BASO% 0.2 % (0.0-0.8); EOS# 0.12 X1000 (0.0-0.7); EOS% 0.7 % (0.0-10.0); HEMATOCRIT 27.1 % (37.0-47.0); HEMOGLOBIN 8.5 g/dL (12.0-16.0); IMM GRAN# 0.26 X1000 (0.0-0.04); IMM GRAN% 1.6 % (0.0-0.5); LYMPH# 2.21 X1000 (1.2-3.4); LYMPH% 13.6 % (20.5-51.1); MCH 28.6 PG (27-31); MCHC 31.4 g/dL (33-37); MCV 91.2 FL (81-99); MONO# 1.27 X1000 (0.11-0.59); MONO% 7.8 % (1.7-9.3); MPV 11.5 FL (7.4-10.4); NEUT# 12.38 X1000 (1.4-6.5); NEUT% 76.1 % (42.2-75.2); PLT 305 X1000 (130-400); RBC 2.97 XMIL (4.2-5.4); RDW 18.4 % (11.5-14.5); WBC 16.28 X1000 (4.8-10.8)
[2018-03-18 05:54] LABS: CALCIUM 8.1 mg/dL (8.8-10.2); CREATININE 1.3 mg/dL (0.5-0.9)
[2018-03-18] MEDS: MUCOMYST 20% INH SCH ×2 (08:12→19:25)
--- NOTE | 2018-03-18 08:18 | Diag Imaging Result Doc PS360 ---
EXAM: CHEST-PORTABLE INDICATION: respiratory failure TECHNIQUE: One view COMPARISON: 03/17/2018 FINDINGS: Diffuse bilateral infiltrates are essentially stable consistent with pulmonary edema. Bilateral pleural effusions are essentially stable. No new consolidation is identified. Cardiac silhouette is stable. The central line is in stable position. IMPRESSION: Stable chest. Electronically signed by Boo Sawyer 03/18/2018 8:16 AM
[2018-03-18] MEDS: ARICEPT PO SCH (08:26)
[2018-03-18] MEDS: LOPRESSOR PO SCH ×2 (08:26→20:56)
[2018-03-18] MEDS: CORDARONE PO SCH (08:26)
[2018-03-18] MEDS: TEFLARO 600 MG in NS 250 ML IV SCH ×2 (10:53→22:58)
[2018-03-18] MEDS: D5W 1,000 ML IV SCH (10:54)
[2018-03-18] MEDS: SODIUM CHLORIDE 0.9% INJ SCH (11:56)
[2018-03-18] MEDS: PROTONIX IV SCH ×2 (11:57→22:58)
[2018-03-18] MEDS: CUBICIN 500 MG in NS 100 ML IV SCH (13:35)
--- NOTE | 2018-03-18 13:51 | PROGRESS NOTE ---
DATE: 03/18/2018 SUBJECTIVE: Patient reports in the morning she was feeling a little bit anxious. According to nursing staff, when that happened her oxygen needs started getting higher. She was using Ventimask on nasal cannula, but now she is requiring BiPAP. Denies any other complaints. OBJECTIVE: Vital Signs: Temperature 97.3 degrees, heart rate 84, respiratory rate 20, blood pressure 122/60, O2 saturation 100% on BiPAP. General examination: This is a chronically ill- looking, 77-year-old female, lying in bed in no acute distress. HEENT: Head is normocephalic. Oral mucous membranes dry. Neck: No JVD noted. No carotid bruits. No lymphadenopathy. No thyromegaly. Cardiovascular exam: S1, S2 heard. Irregularly irregular and tachycardic. No murmurs, gallops, or rubs. Respiratory exam: Coarse breath sounds in both pulmonary bases. Patient not using any accessory muscles or having work of breathing. Abdomen: Soft, a little bit distended, but nontender to palpation. No signs of peritoneal irritation. Bowel sounds present. No organomegaly. Extremities: No clubbing, cyanosis, or edema. Peripheral pulses present in both legs. Neurological exam: Patient alert and oriented x3. Moves 4 extremities. LABORATORY DATA: White cell count 16.28, hemoglobin 8.5, hematocrit 27.7, platelets 305. ABG shows pH 7.46, pCO2 39, PO2 87 on BiPAP 40%. BMP reveals creatinine 1.3, potassium 4.0, glucose 114. ASSESSMENT AND PLAN: 1. Acute hypoxemic respiratory failure. Her oxygen needs are going up and down. She was requiring 4 to 5 liters of oxygen by nasal cannula on Ventimask, but this morning when she fell, she was anxious and she started requiring BiPAP. At this time, I am planning to keep her one more day in the hospital. ABG shows good gas exchange. Pulmonary following this patient. Will follow recommendation. 2. Bibasilar pneumonia secondary to methicillin-resistant Staphylococcus aureus. Cultures from 3 days ago showed no growth. Dr. Carter of Infectious Disease is following this patient. Currently, she is on ceftaroline to treat pneumonia and daptomycin to treat methicillin- resistant Staphylococcus aureus bacteremia. We will continue with the same treatment. 3. Atrial fibrillation with rapid ventricular response. Patient's heart rate is well controlled. We will continue with the same medications. Cardiology is also following. 4. Hypokalemia. The potassium is back to normal. 5. Pulmonary edema. We have held furosemide for 48 hours considering that her renal function was getting a little bit elevated, so we will resume tomorrow after we check basic metabolic panel. 6. Gastrointestinal bleeding. There have not been any signs of bleeding since admission. Hemoglobin is stable. So Gastroenterology, Dr. Shah, do not think that we need to do a procedure now. We will monitor this patient closely. cc: Ildefonso Kruger MD
--- NOTE | 2018-03-18 13:59 | PROGRESS NOTE ---
DATE: 03/18/2018 SUBJECTIVE: . Viviana Singh was on anticoagulation for atrial fibrillation, and she suffered a retroperitoneal bleed. She is being followed by Dr. Nino. OBJECTIVE: Her hematocrit is stable. It has been 26% to 27% over the last 3 days. White blood cell count 16. Electrolytes are essentially within normal limits with a BUN of 23 and a creatinine of 1.3. She is hemodynamically stable. Her heart rate is 84, blood pressure 95/42. O2 saturation 100%. She needs BiPAP. She is afebrile. She has a Navarro catheter tube in place. Her urine output is adequate. She has had some liquid brown stools. She is now on a diabetic diet. PLAN: There is no evidence of ongoing bleeding in the retroperitoneum. Her anticoagulation has been stopped. Her atrial fib is being treated medically. We will continue supportive care. cc: Adrienne Rick MD
--- NOTE | 2018-03-18 16:05 | CARDIOLOGY PROGRESS NOTE ---
DATE: 03/18/2018 SUBJECTIVE: Ms. Singh is lying in bed. She has no complaints presently. She is not hurting anywhere. She is tolerating oral intake. PHYSICAL EXAMINATION: Vital Signs: She is afebrile. Her heart rate is in the 80s to 90s. Most systolics seem to be in the 90s to 110s. General: Generally she is ill-appearing. No acute distress. Cardiovascular: She is in an irregularly irregular rhythm. Rate is in the low 100s. She has no lower extremity edema and warm and well perfused extremities. No murmurs. Chest: Her chest exam sounds clear from the anterior and axillary positions. Abdomen: Her abdomen is soft and nontender. PERTINENT DATA: Her chest x-ray shows diffuse bilateral infiltrates consistent with probable pulmonary edema. Her lab data shows a white count of 16.2, hematocrit of 27, and platelet count of 305. Sodium is 138, potassium 4, BUN 23, and creatinine 1.3. Her A-a gradient seems to have improved steadily over the last several days. ASSESSMENT: Ms. Singh is a 77-year-old female with a history of atrial fibrillation and pneumonia. PLAN: She seems reasonably rate controlled currently. I would not recommend adjustment in her medications at this time. The GI physicians are seeing the patient in concern for a possible GI bleed so she is not a candidate for anticoagulation presently. For now we will continue on the current medications. cc: Pierre Monge MD
[2018-03-18] MEDS ORDERED: LASIX IV ONE (17:20)
[2018-03-18] MEDS: ICAR-C PO SCH (20:56)
--- NOTE | 2018-03-19 00:30 | GASTROENTEROLOGY PROGRESS NOTE ---
DATE: 03/18/2018 Resting in bed. Her family was at bedside. Patient has no other acute events in the last 24 hours. No evidence any GI bleeding. She is having liquid brown stools. Her hematocrit is stable. Vitals: Temperature of 98.3, pulse rate of 95, respiratory 22, blood pressure 124/68 saturating 98% on 40% oxygen, body weight of 157 pounds 12.8 ounces BMI 28 kg per meter square. General: Thinly built lying in bed in no acute distress. HEENT: Positive pallor. No icterus. Nasal cannula in place. Neck: Supple. Abdomen: Soft, nondistended, no guarding. Extremities: No cyanosis, clubbing. Neuro: She is awake, alert, answers all questions. LABS: Hemoglobin and hematocrit is 8.5 and 27.1, white count of 16.28, platelet count of 305,000. ABG showing pH 746, pCO2 39, PO2 87 this is on BiPAP at 40% FiO2, sodium 130, potassium 4, chloride 102, bicarb 24, anion gap 12, BUN of 23, creatinine 1.3 , glucose of 114, calcium is 8.1. Blood culture times negative at 48 hours from 03/15/2018. Chest x-ray done today showed diffuse bilateral infiltrates are essentially stable consistent with pulmonary edema, bilateral pleural effusions stable, no new consolidation is noted. IMPRESSION AND PLAN: 1. Gastrointestinal bleeding seems to have resolved, she is having brown stools , hematocrit stable. Will continue on conservative management, PPIs. 2. Acute hypoxic respiratory failure. She is requiring high amounts of oxygen, pulmonary team is following the patient. 3. Bibasilar pneumonia secondary to methicillin-resistant Staphylococcus aureus , she is on ceftaroline and daptomycin. 4. Atrial fibrillation with rapid ventricular response. She is being managed by Cardiology. 5. Pulmonary edema. She is on Lasix. 6. Gastrointestinal prophylaxis PPIs. 7. Anemia continue watch for now transfuse as needed. Will start on iron C b.i.d., multivitamin once daily. 8. Above plan discussed patient at bedside and all questions answered; please call with any questions. cc: Negro Espitia MD [facility]
[2018-03-19] MEDS: ATIVAN IV PRN ×3 (00:42→23:11)
[2018-03-19] MEDS: D5W 1,000 ML IV SCH ×2 (00:42→12:45)
[2018-03-19] MEDS: HUMULIN R SUBQ SCH ×6 (02:37→22:16)
[2018-03-19] MEDS: XOPENEX NEB INH SCH ×6 (03:03→23:45)
[2018-03-19] MEDS: ATROVENT NEB INH SCH ×6 (03:03→23:45)
[2018-03-19] MEDS: LOPRESSOR IV PRN ×2 (03:36→23:24)
[2018-03-19 04:51] LABS: BASO# 0.07 X1000 (0.0-0.2); BASO% 0.4 % (0.0-0.8); EOS# 0.25 X1000 (0.0-0.7); EOS% 1.5 % (0.0-10.0); HEMATOCRIT 28.4 % (37.0-47.0); HEMOGLOBIN 9.2 g/dL (12.0-16.0); IMM GRAN% 2.3 % (0.0-0.5); LYMPH# 2.13 X1000 (1.2-3.4); LYMPH% 12.5 % (20.5-51.1); MCH 29.7 PG (27-31); MCHC 32.4 g/dL (33-37); MCV 91.6 FL (81-99); MONO# 1.34 X1000 (0.11-0.59); MONO% 7.8 % (1.7-9.3); MPV 10.8 FL (7.4-10.4); NEUT% 75.5 % (42.2-75.2); PLT 358 X1000 (130-400); RDW 18.4 % (11.5-14.5); WBC 17.09 X1000 (4.8-10.8)
[2018-03-19 05:10] LABS: CALCIUM 8.2 mg/dL (8.8-10.2); CREATININE 1.3 mg/dL (0.5-0.9); POTASSIUM 3.4 mmol/L (3.5-5.1)
[2018-03-19 05:26] LABS: BASO 1 % (0-1); LYMPHS 18 % (21-51); MONO 6 % (1-9); SEGS 75 % (42-75)
[2018-03-19 05:29] LABS: ALLEN TEST YES; BE 2.3 mmoll (-3.0-3.0); BLOOD TYPE ARTERIAL; HCO3-(ACT) 26.6 mmoll (20.0-26.0); METHB 0.6 % (0.0-1.5); O2(CT) 14.7 mL/dL (15.0-23.0); O2HB 93.1 % (95.0-99.0); PCO2(98.6) 43 mmHg (35-45); PO2(98.6) 68 mmHg (60-100); SAMPLE BLOOD; SAO2 95.4 % (95.0-100.0); THB 11.2 g/dL (11.5-17.4); pH(98.6) 7.41 (7.35-7.45)
[2018-03-19 05:30] LABS: MODALITY CANNULA
[2018-03-19] MEDS ORDERED: KLOR-CON PO ONE (07:52)
--- NOTE | 2018-03-19 08:10 | Diag Imaging Result Doc PS360 ---
EXAM: CHEST-PORTABLE INDICATION: respiratory failure TECHNIQUE: One view COMPARISON: 03/18/2018 FINDINGS: The left central line is in stable position. Diffuse bilateral infiltrates indicating pulmonary edema are essentially stable. There are stable effusions bilaterally. No new consolidation is identified. Cardiac silhouette is stable. IMPRESSION: Stable chest. Electronically signed by Boo Sawyer 03/19/2018 8:07 AM
[2018-03-19] MEDS: MUCOMYST 20% INH SCH ×2 (08:17→19:15)
[2018-03-19] MEDS ORDERED: LASIX ONE (08:24)
[2018-03-19] MEDS: ARICEPT PO SCH (08:29)
[2018-03-19] MEDS: LOPRESSOR PO SCH ×2 (08:30→20:23)
[2018-03-19] MEDS: CORDARONE PO SCH (08:30)
[2018-03-19] MEDS: ICAR-C PO SCH ×2 (08:30→20:23)
[2018-03-19] MEDS: CENTRUM SILVER PO SCH (08:40)
[2018-03-19] MEDS: LASIX IV SCH (09:00)
[2018-03-19] MEDS: POTASSIUM CHLORIDE 20 MEQ/SWI 20 MEQ/100 ML IVPB IV SCH ×2 (09:27→11:04)
--- NOTE | 2018-03-19 10:08 | PROGRESS NOTE ---
DATE: 03/19/2018 SUBJECTIVE: According to nursing staff, last night, she was having shortness of breath and going back and forth in oxygen needs. Now she is requiring oxygen by Opti-Flow at 50% FiO2. OBJECTIVE: Vital Signs: Temperature 97.8 degrees, heart rate 95, respiratory 23, blood pressure 141/66. O2 saturation 95% on 15 L by high-flow nasal cannula. General: This is a chronically ill-looking, 77-year-old female lying in bed in no acute distress. HEENT: Head is normocephalic. Mucous membranes dry. Neck: No JVD noted. No carotid bruits. No lymphadenopathy. No thyromegaly. Cardiovascular: S1, S2 heard. Irregularly irregular. Tachycardic. No murmurs, gallops, or rubs noted. Respiratory: Coarse breath sounds in both pulmonary bases. Patient is not using any accessory muscles or having work of breathing. Abdomen: Soft, a little bit distended, but nontender to palpation. No signs of peritoneal irritation. Bowel sounds present. No organomegaly. Extremities: No clubbing, cyanosis, or edema. Peripheral pulses present in both legs. Neurological: Patient alert and oriented x3. Moves 4 extremities. LABORATORY DATA: White cell count 17.09, hemoglobin 9.2, hematocrit 28.4, platelets 358,000. BMP shows sodium 135, potassium 3.4, creatinine 1.3. ASSESSMENT AND PLAN: 1. Acute hypoxemic respiratory failure. Unfortunately, this patient continues to require high amount of oxygen that goes back and forth. Yesterday in the morning she was requiring 4 to 5 L of oxygen by nasal cannula, but when she becomes anxious, her oxygen need goes and she was requiring BiPAP, but she was not feeling comfortable using that tight-fitting mask, so at this time, she is on Opti-Flow and apparently she is doing fine, breathing okay, so at this point, we will continue with the same management. 2. Bibasilar pneumonia secondary to MRSA. The patient is on ceftaroline to treat pneumonia and daptomycin to treat MRSA bacteremia. Unfortunately, the white cell count continues to be high. The patient reports breathing the same, not getting worse, but not getting better. At this point, we will continue with the same management. 3. Acalculous cholecystitis. Patient reports feeling a little bit of tenderness in the right upper quadrant. Previous imaging did show normal HIDA scan with no other issues. At this point, considering that the white cell count is still elevated and she complains of some abdominal pain, I will prefer to order a repeat abdominal ultrasound and will go from there. 4. Atrial fibrillation with rapid ventricular response. Heart rate has been controlled. Lastly, we will continue with the same management. 5. Hypokalemia, potassium is a little bit low and considering that she is going to have Lasix again, we will replete it today. 6. Pulmonary edema still present. We will continue with Lasix. 7. GI bleeding. That condition has been ruled out. That condition actually was present almost on admission, but today is day #14 of her hospitalization. I do not think it is a concern right now. 8. Disposition. We will continue to monitor this patient in the intensive care unit. cc: Ildefonso Kruger MD
[2018-03-19] MEDS: PROTONIX IV SCH ×2 (11:04→23:24)
[2018-03-19] MEDS: TEFLARO 600 MG in NS 250 ML IV SCH ×2 (11:04→23:11)
[2018-03-19] MEDS: SODIUM CHLORIDE 0.9% INJ SCH (11:04)
--- NOTE | 2018-03-19 11:08 | GASTROENTEROLOGY PROGRESS NOTE ---
DATE: 03/19/2018 SUBJECTIVE: The patient is resting in bed. She continues to be tachypneic, require high amounts of oxygen. No rectal bleeding noted. She is having liquid brown stools. OBJECTIVE: Vital Signs: Temperature of 97.8 degrees, pulse rate of 84, respiratory rate 20, blood pressure of 103/61, satting 92% on high-flow oxygen at 50 L/minute. GENERAL APPEARANCE: Moderately malnourished, lying in bed, tachypneic.HEENT: Positive pallor. No icterus. High-flow nasal cannula in place. Neck: Supple. Abdomen: Soft, nontender, nondistended. No guarding. Extremities: No cyanosis, clubbing noted. Neurologic: Neuro-david, she is awake, alert. Answers all questions. LABS AND X-RAYS: Hemoglobin and hematocrit is 9.2 and 28.4, white count of 17.09, platelet count of 358. Sodium of 135, potassium 3.4, chloride 97, bicarbonate 24, anion gap of 14. BUN of 23, creatinine 1.3, glucose of 148, calcium is 8.2, magnesium 1.5. ABG showing pH 7.41, pCO2 43, PO2 of 68. This is on nasal cannula. FiO2 50%. Blood culture x2 negative at 48 hours on 03/15/2018. Chest x-ray done this morning showed stable chest. Diffuse bilateral infiltrates indicating pulmonary edema. No new consolidation. IMPRESSION AND PLAN: 1. Gastrointestinal bleeding has resolved. We will continue to watch her hemoglobin and hematocrit. We will keep her on Protonix for now. Because of the patient's tenuous respiratory status, she is at high risk for any kind of endoscopic procedure at the moment. We will evaluate her for esophagogastroduodenoscopy at a later date when her hypoxic respiratory failure has improved. This can be done as an inpatient or outpatient. 2. Acute hypoxic respiratory failure. She continues to require high amounts of oxygen. 3. Bibasilar pneumonia secondary to methicillin-resistant Staphylococcus aureus. She is on antibiotics with ceftaroline and daptomycin. 4. Acalculous cholecystitis. Continue to follow her clinically. 5. Atrial fibrillation with rapid ventricular response. Aware. 6. Pulmonary edema. She is on Lasix. 7. Gastrointestinal prophylaxis with proton pump inhibitors. 8. She continues on diabetic diet and Glucerna shakes. 9. Anemia. We will keep her on Iron C twice daily and multivitamin once daily. Discussed the above plans with the patient's nurse and all questions answered. Please call us with any other questions. cc: MD Negro Blanchard MD Cesar Garcia-Rodriguez, MD
[2018-03-19] MEDS: CUBICIN 500 MG in NS 100 ML IV SCH (12:39)
--- NOTE | 2018-03-19 14:00 | Diag Imaging Result Doc PS360 ---
EXAM: US ABDOMEN-COMPLETE INDICATION: acalculous cholecystitis COMPARISON: 03/05/2018 FINDINGS: There is right pleural fluid and small volume ascites tracking around the liver. No gallstones are identified. The gallbladder wall is somewhat thickened measuring up to 6 mm in thickness. However, this can be due to the surrounding ascites. The common bile duct is normal in diameter. The liver is grossly unremarkable. Portal venous flow is hepatopetal. The visualized pancreas is unremarkable. The distal aorta is obscured by gas. The remainder of the aorta and IVC are unremarkable. The spleen is unremarkable. The kidneys are grossly unremarkable. IMPRESSION: 1.Pleural effusion and small volume ascites. 2.Thickened gallbladder wall with no stones. However, note that this can be simply due to the surrounding ascites rather than true acalculus cholecystitis. Please correlate clinically. Electronically signed by Boo Sawyer 03/19/2018 1:58 PM
[2018-03-20] MEDS: HUMULIN R SUBQ SCH ×6 (02:10→21:23)
[2018-03-20] MEDS: XOPENEX NEB INH SCH ×6 (03:07→23:46)
[2018-03-20] MEDS: ATROVENT NEB INH SCH ×6 (03:07→23:45)
[2018-03-20 05:20] LABS: BASO# 0.04 X1000 (0.0-0.2); BASO% 0.2 % (0.0-0.8); EOS# 0.07 X1000 (0.0-0.7); EOS% 0.4 % (0.0-10.0); HEMATOCRIT 28.5 % (37.0-47.0); HEMOGLOBIN 8.9 g/dL (12.0-16.0); IMM GRAN# 0.33 X1000 (0.0-0.04); IMM GRAN% 1.8 % (0.0-0.5); LYMPH# 1.76 X1000 (1.2-3.4); LYMPH% 9.7 % (20.5-51.1); MCH 28.4 PG (27-31); MCHC 31.2 g/dL (33-37); MCV 91.1 FL (81-99); MONO# 1.43 X1000 (0.11-0.59); MONO% 7.9 % (1.7-9.3); MPV 10.5 FL (7.4-10.4); NEUT# 14.46 X1000 (1.4-6.5); PLT 349 X1000 (130-400); RBC 3.13 XMIL (4.2-5.4); RDW 18.3 % (11.5-14.5); WBC 18.09 X1000 (4.8-10.8)
[2018-03-20 05:20] LABS: ALLEN TEST YES; BLOOD TYPE ARTERIAL; METHB 0.9 % (0.0-1.5); O2(CT) 12.2 mL/dL (15.0-23.0); O2HB 93.5 % (95.0-99.0); PCO2(98.6) 42 mmHg (35-45); PO2(98.6) 73 mmHg (60-100); SAMPLE BLOOD; SAO2 96.1 % (95.0-100.0); THB 9.2 g/dL (11.5-17.4); pH(98.6) 7.44 (7.35-7.45)
[2018-03-20 05:21] LABS: MODALITY BI PAP
[2018-03-20 05:41] LABS: CALCIUM 8.3 mg/dL (8.8-10.2); CREATININE 1.2 mg/dL (0.5-0.9); POTASSIUM 3.8 mmol/L (3.5-5.1)
[2018-03-20] MEDS: D5W 1,000 ML IV SCH ×2 (06:33→08:27)
--- NOTE | 2018-03-20 07:11 | Diag Imaging Result Doc PS360 ---
EXAM: CHEST-PORTABLE 03/20/2018 HISTORY: respiratory failure TECHNIQUE: AP portable at 0534 COMMENT: There are bilateral pleural effusions. There is alveolar opacity in both upper lobes and both lower lobes. This is slightly less extensive on the left than on 03/19/2018. Otherwise, there has been no significant change. IMPRESSION: Pulmonary edema and/or pneumonia with bilateral pleural effusions. Electronically signed by Matt Myers 03/20/2018 7:09 AM
[2018-03-20] MEDS: MUCOMYST 20% INH SCH ×2 (08:01→19:25)
[2018-03-20] MEDS ORDERED: LASIX IV ONE (08:10)
--- NOTE | 2018-03-20 08:20 | INFECTIOUS DISEASE PROGRESS NO ---
DATE: 03/20/2018 PRESENT ILLNESS: The patient has methicillin-resistant Staph aureus pneumonia and associated bacteremia. MEDICATIONS: The patient is on the 5th day of treatment with ceftaroline for the pneumonia and daptomycin for the bacteremia. PHYSICAL EXAMINATION: Vital Signs: Temperature is 97 degrees, pulse 96, respirations 29, blood pressure 131/75. General: This is an ill-appearing elderly female. She has a BiPAP mask on. Currently, she is not coughing. Head, Eyes, Ears, Nose and Throat: As mentioned above, patient has a BiPAP mask on. She does not have any drainage from the nose or ears. She does not have any white patches on her tongue. Neck: No meningismus. Thorax: Patient has an increased AP diameter of the chest. Lungs: Were clear today. Cardiovascular: Heart rate is rapid and irregular. Abdomen: Soft and not tender. Neurologic: The patient is lethargic but she does respond to verbal stimuli. LABORATORY AND X-RAY: Chest x-ray shows bilateral pneumonia and/or pulmonary edema. Blood gases show a pH of 7.44, pO2 of 73, a pCO2 of 42 creatinine is 1.2. GFR is 44. Repeat blood cultures are negative at 48 hours[place] [address], hemoglobin 8.9, and platelet count 349,000. ASSESSMENT AND PLAN: Patient has methicillin-resistant Staph aureus pneumonia and bacteremia. I plan to continue her current antibiotics namely ceftaroline and daptomycin. I have ordered a procalcitonin level to help determine the exact cause of the patient's pulmonary infiltrates. COMORBIDITIES: The patient is elderly. She is had a stroke and she also is a diabetic. cc: Omari Carter MD
--- NOTE | 2018-03-20 09:25 | PULMONOLOGY PROGRESS NOTE ---
DATE: 03/20/2018 INTERIM HISTORY: Patient failed high-flow oxygen yesterday. She is back on BiPAP. She was sleeping upon my arrival. She was moaning but was arousable and denied pain. OBJECTIVE: Vital Signs: The patient has been afebrile for the last 24 hours. Blood pressure 131/75. Heart rate 111, respiratory rate 30, oxygen saturation 93%. HEENT: Pupils are equal and reactive. Oropharynx evaluation is limited with BiPAP in place. Neck: Supple. Chest reveals coarse rhonchi bilaterally. Cardiac exam: S1-S2. Abdomen: Soft without hepatosplenomegaly. Extremities: Are without cyanosis or edema. Skin warm to the touch. LABORATORIES: Chest x-ray reveals bilateral effusions with bilateral pulmonary infiltrates. There has been marginal improvement in infiltrates on the left. White blood count 18.09, hemoglobin 8.9, platelet count 349,000. Arterial blood gas, pH 7.44, pCO2 of 42, pO2 of 73. No new culture data. IMPRESSION: 1. A 77-year-old with methicillin-resistant Staph aureus pneumonia and methicillin-resistant Staph aureus bacteremia. 2. Possible acalculous cholecystitis. 3. Pleural effusions with the acute hypoxemic respiratory failure. The patient continues to require high oxygen and significant support to maintain her oxygenation. She has had a positive fluid balance for the last several days. Her BUN and creatinine are stable. It is hoped that she will tolerate some diuresis. PLAN: 1. Continue BiPAP and cycle as tolerated. 2. Agree with diuretic trial. 3. Continue antibiotics per Infectious Disease. 4. Discontinued D5W. This was initiated when patient was hypernatremic and now patient is hyponatremic. 5. Continue ICU monitoring. cc: Cliff Amaya MD
[2018-03-20] MEDS: TEFLARO 600 MG in NS 250 ML IV SCH ×2 (10:15→23:45)
[2018-03-20] MEDS: ARICEPT PO SCH (10:15)
[2018-03-20] MEDS: LOPRESSOR PO SCH ×2 (10:15→21:23)
[2018-03-20] MEDS: CORDARONE PO SCH (10:15)
[2018-03-20] MEDS: ICAR-C PO SCH ×2 (10:15→21:23)
--- NOTE | 2018-03-20 10:23 | PROGRESS NOTE ---
DATE: 03/20/2018 SUBJECTIVE: According to the nursing staff, the patient started requiring BiPAP last night. Patient reports she is still short of breath. Yesterday, she was on Optiflow at 50% FiO2. OBJECTIVE: Vital Signs: Temperature 97.8 degrees, heart rate 115, respiratory rate 40, blood pressure 129/68, O2 saturation 98% on BiPAP. General: This is a chronically ill-looking 77- year-old female lying in bed, in moderate respiratory distress. HEENT : Head is normocephalic, atraumatic. Mucous membranes dry. Neck: No JVD noted. No carotid bruits. No lymphadenopathy. No thyromegaly. Cardiovascular: S1, S2 heard. Irregularly, irregular heart rhythm. Tachycardic. No murmurs, gallops, or rubs. Respiratory: Coarse breath sounds in all pulmonary estrada, mostly noted in both bases. Patient not using any accessory muscles or having work of breathing. Abdomen: Soft, a little bit distended but nontender to palpation. No signs of peritoneal irritation. Bowel sounds present. No organomegaly. Extremities : No clubbing, cyanosis, or edema. Peripheral pulses present in both legs. Neurological: The patient is definitely more sleepier this morning. Not able to answer my questions. He does follow basic commands. Moves 4 extremities spontaneously. LABORATORY DATA: White cell count 18.09, hemoglobin 8.9, hematocrit 28.5, platelets 349,000, with an ABG that shows pH 7.44 with pCO2 42, pO2 73. Sodium 130. ASSESSMENT AND PLAN: 1. Acute hypoxemic respiratory failure. Now, she is requiring oxygen by BiPAP. Yesterday, she failed treatment with Optiflow. At this point, today, she is more sleepier. She is moaning in pain. I think considering last x-ray from this morning, that report still pulmonary edema and/or pneumonia with bilateral pleural effusions, I think we need to increase the doses of Lasix. She was receiving yesterday 40 mg subcutaneous daily. We are going to increase the dose to 80 mg this morning and then 40 mg IV q.12 hours. We will see how she does. We may need to increase the doses, if not good clinical response and stable renal function. We will continue to monitor patient in the ICU. 2. Bibasilar pneumonia secondary to methicillin-resistant Staphylococcus aureus. Patient is on ceftaroline to treat pneumonia and daptomycin to treat methicillin-resistant Staphylococcus aureus bacteremia. Those medications have been administered for the last 5 days, but unfortunately white cell count continues to be higher. At this point, we will continue with the same management. Dr. Carter following this patient. 3. Acalculous cholecystitis. We have repeated the ultrasound of the abdomen. It did not show any major abnormalities. 4. Atrial fibrillation with rapid ventricular response. The heart rate started to get higher. I think because this patient is still tachypneic. I hope that by treating pulmonary edema, the patient starts breathing better, and the heart rate will start to go down. We will see how she does. 5. Hypokalemia, resolved. 6. Pulmonary edema still present. We will continue with Lasix. 7. Gastrointestinal bleeding, ruled out. 8. Disposition. We will continue to monitor this patient in the intensive care unit. cc: Ildefonso Kruger MD MTDD
[2018-03-20] MEDS: CENTRUM SILVER PO SCH (10:53)
--- NOTE | 2018-03-20 11:22 | GASTROENTEROLOGY PROGRESS NOTE ---
DATE: 03/20/2018 SUBJECTIVE: The patient is resting in bed. She is currently tachypneic. She is on a BiPAP. Her respiratory status has deteriorated. No evidence of any GI bleeding per the nursing staff. PHYSICAL EXAMINATION: Vital Signs: Temperature of 97.8 degrees, pulse rate of 111, respiratory rate of 14, blood pressure 139/68, saturating 90% on BiPAP at 60% FiO2. General Appearance: Moderately built, moderately nourished, lying in bed, currently tachypneic and on BiPAP. HEENT: Positive pallor. No icterus. BiPAP mask in place. Neck: Showing signs of tachypnea. Abdomen: Soft, nontender, nondistended. No guarding. Extremities: No cyanosis, clubbing. Bilateral lower extremity edema. Neurologic: She is drowsy and did not answer any questions. LABORATORY DATA: Hematocrit and hematocrit are 8.9 and 28.5, white count of 18.09, platelet count of 349,000. PH of 7.44, pCO2 of 42, PO2 of 73. This is on BiPAP at 70% FiO2. Sodium of 130, potassium is 3.8, chloride 93, bicarb 24, anion gap 13, BUN of 22, creatinine 1.2, glucose of 128, calcium is 8.3. Blood cultures x2 are negative at 48 hours. Chest x-ray done today showed pulmonary edema and pneumonia with bilateral pleural effusions. IMPRESSION AND PLAN: 1. Methicillin-resistant Staphylococcus aureus pneumonia and methicillin-resistant Staphylococcus aureus bacteremia. She is on antibiotics with ceftaroline and daptomycin. 2. Anemia. Continue to watch for now and transfuse as needed. 3. Gastrointestinal bleeding has resolved. We will keep her on Protonix twice daily. 4. Diabetes. She is on sliding-scale regular insulin. 5. Acute hypoxic respiratory failure. She is on BiPAP. This managed by Dr. Amaya. She is also receiving diuretics. 6. Acalculous cholecystitis. Dr. Nino has seen the patient in the past. Repeat ultrasound was done yesterday which showed thickened gallbladder with no stones, pleural effusion, small volume ascites. 7. Atrial fibrillation with rapid ventricular response, on amiodarone. 8. The above plan was discussed with the patient and family, and the nursing staff. All questions were answered. Please call us with any further questions. cc: MD Negro Blanchard MD
[2018-03-20] MEDS: PROTONIX IV SCH ×2 (11:50→23:45)
[2018-03-20] MEDS: CUBICIN 500 MG in NS 100 ML IV SCH (13:37)
[2018-03-20] MEDS: LASIX IV SCH (21:25)
[2018-03-20] MEDS: SODIUM CHLORIDE 0.9% INJ SCH (23:45)
[2018-03-21] MEDS: HUMULIN R SUBQ SCH ×6 (01:18→22:43)
[2018-03-21] MEDS: ATIVAN IV PRN (02:50)
[2018-03-21] MEDS: ATROVENT NEB INH SCH ×6 (03:30→23:26)
[2018-03-21] MEDS: XOPENEX NEB INH SCH ×6 (03:30→23:26)
[2018-03-21 05:14] LABS: BE 5.4 mmoll (-3.0-3.0); BLOOD TYPE ARTERIAL; METHB 1.4 % (0.0-1.5); O2(CT) 12.8 mL/dL (15.0-23.0); O2HB 91.2 % (95.0-99.0); PCO2(98.6) 36 mmHg (35-45); PO2(98.6) 64 mmHg (60-100); SAMPLE BLOOD; SAO2 94.6 % (95.0-100.0); THB 9.9 g/dL (11.5-17.4); pH(98.6) 7.51 (7.35-7.45)
[2018-03-21 05:15] LABS: MODALITY BI PAP
[2018-03-21 05:34] LABS: BASO# 0.03 X1000 (0.0-0.2); BASO% 0.2 % (0.0-0.8); EOS# 0.04 X1000 (0.0-0.7); EOS% 0.2 % (0.0-10.0); HEMATOCRIT 26.8 % (37.0-47.0); HEMOGLOBIN 8.6 g/dL (12.0-16.0); IMM GRAN# 0.24 X1000 (0.0-0.04); IMM GRAN% 1.3 % (0.0-0.5); LYMPH% 7.5 % (20.5-51.1); MCHC 32.1 g/dL (33-37); MCV 90.2 FL (81-99); MONO# 1.46 X1000 (0.11-0.59); MONO% 7.9 % (1.7-9.3); MPV 10.3 FL (7.4-10.4); NEUT# 15.38 X1000 (1.4-6.5); NEUT% 82.9 % (42.2-75.2); PLT 345 X1000 (130-400); RBC 2.97 XMIL (4.2-5.4); RDW 18.1 % (11.5-14.5); WBC 18.55 X1000 (4.8-10.8)
[2018-03-21 05:37] LABS: CALCIUM 8.2 mg/dL (8.8-10.2); CREATININE 1.1 mg/dL (0.5-0.9)
--- NOTE | 2018-03-21 06:38 | Diag Imaging Result Doc PS360 ---
EXAM: CHEST-PORTABLE HISTORY: respiratory failure TECHNIQUE: Portable chest single view COMPARISON: 03/20/2018 FINDINGS: No change in the left jugular line. Poor inspiratory effort. There are dense bilateral infiltrates with small pleural effusions. No cardiomegaly. IMPRESSION: No interval improvement. Electronically signed by Jonathan Lozada 03/21/2018 6:36 AM
[2018-03-21 07:35] LABS: BANDS 2 % (0-1); LYMPHS 4 % (21-51); SEGS 94 % (42-75)
[2018-03-21] MEDS: MUCOMYST 20% INH SCH ×2 (07:56→19:25)
--- NOTE | 2018-03-21 08:18 | INFECTIOUS DISEASE PROGRESS NO ---
DATE: 03/21/2018 PRESENT ILLNESS: The patient has methicillin-resistant Staphylococcus aureus pneumonia and associated bacteremia. MEDICATIONS: This is the 6th day of treatment with the combination of ceftaroline for the pneumonia and daptomycin for the bacteremia. PHYSICAL EXAMINATION: Vital Signs: Temperature is 96.9 degrees, pulse 107, respirations 27, blood pressure 118/53. General: This is an ill-appearing, elderly female. She is off her BiPAP mask. She does not appear to be in any acute distress. Head, Eyes, Ears, Nose, and Throat: She can hear my spoken words and see near objects. She does not have any white coating on her tongue. Neck: No meningismus. Lungs: Clear to auscultation. Cardiovascular: Heart rate is rapid and irregular. Abdomen: Soft and nontender. Neurologic: The patient is more alert today. She moved her extremities to request. There was no tremor. LAB AND X-RAY: Chest x-ray shows continued bilateral infiltrates. CBC shows a white count of 18,550, hemoglobin 8.6, and platelet count 345,000. Blood gases show a pH of 7.51, a pO2 of 64, and a pCO2 of 36. Creatinine is 1.1. GFR is 48. ASSESSMENT AND PLAN: The patient has methicillin-resistant Staphylococcus aureus pneumonia and bacteremia. My plan is to continue both of the above antibiotics, namely ceftaroline and daptomycin. A procalcitonin level has been ordered, the results of which are pending. COMORBIDITIES: The patient is elderly. She has had a stroke and she also is a diabetic. cc: Omari Carter MD
[2018-03-21] MEDS: ICAR-C PO SCH ×2 (08:39→21:26)
[2018-03-21] MEDS: ARICEPT PO SCH (08:39)
[2018-03-21] MEDS: CORDARONE PO SCH (08:39)
[2018-03-21] MEDS: LOPRESSOR PO SCH ×2 (08:39→21:26)
[2018-03-21] MEDS: LASIX IV SCH ×2 (08:39→21:26)
[2018-03-21] MEDS: CENTRUM SILVER PO SCH (09:29)
[2018-03-21] MEDS ORDERED: POTASSIUM CHLORIDE 40 MEQ/SWI 40 MEQ/100 ML IVPB IV ONE (09:56)
--- NOTE | 2018-03-21 10:33 | PROGRESS NOTE ---
DATE: 03/21/2018 SUBJECTIVE: Family member at the bedside. This patient seems to be more alert. She is oriented to person. She is able to recognize her family member at the bedside. She is not oriented to time. She knows she is in the hospital. She does not know which one. She seems to be extremely weak. BUN and creatinine seem to be stable, so I will continue with Lasix. OBJECTIVE: Vital Signs: Temperature 98.1 degrees, pulse 112, respiratory rate 33, blood pressure 141/66, oxygen saturation 93% on a high-flow nasal cannula 70% oxygen flow. HEENT: Head normocephalic. No trauma. PERRLA. Neck: Supple. No JVD. Central trachea. Chest: Coarse breath sounds bilaterally with decreased inspiratory effort. Some rhonchi also noted at the bases. Abdomen: Soft, mildly distended. Nontender to palpation. No signs of peritoneal irritation. Bowel sounds present. Extremities: No edema. No clubbing. No cyanosis. Neurological: This patient is more awake today. She is able to say her name. She is answering to some of my questions. She is not oriented to time. She knows she is in the hospital, but she does not remember which one. She is able to move her 4 extremities, but she is really weak. LABORATORY: WBC 18.5, hemoglobin 8.6, hematocrit 26.8, platelets 345,000. Sodium 133, potassium 3, chloride 93, bicarbonate 24, BUN 21, creatinine 1.1, glucose 73, calcium 8.2. ASSESSMENT AND PLAN: 1. Acute hypoxemic respiratory failure. She is using a high-flow oxygen at this moment. Apparently, she is a little bit more awake today. She is following commands a little bit and answering some of my questions. X-ray showed infiltrates and pulmonary edema. She is getting IV Lasix twice a day. Her potassium is low and I will replace it. 2. Bibasilar pneumonia secondary to MRSA. Continue with the same management. Infectious Disease Department on board. 3. Bacteremia, due to MRSA. Continue with the same management. Like I mentioned before, Infectious Disease Department on board. Her last blood culture from the is negative. 4. Acalculous cholecystitis. We will monitor. We repeated an ultrasound of the abdomen that did not show any major abnormalities. 5. Atrial fibrillation with RVR. Rate controlled now. Cardiology on board. 6. Hypokalemia, I will replace the potassium today through her central line. 7. Pulmonary edema. Continue with Lasix. We will avoid extra fluid on this patient. 8. Gastrointestinal bleed has been ruled out. 9. Disposition. Continue treating this patient in the intensive care unit. cc: Nestor Ruiz MD
[2018-03-21] MEDS: TEFLARO 600 MG in NS 250 ML IV SCH ×2 (11:34→23:09)
[2018-03-21] MEDS: PROTONIX IV SCH ×2 (11:35→23:09)
[2018-03-21] MEDS: SODIUM CHLORIDE 0.9% INJ SCH ×2 (11:35→23:09)
[2018-03-21] MEDS ORDERED: LASIX IV ONE (12:46)
--- NOTE | 2018-03-21 13:09 | PULMONOLOGY PROGRESS NOTE ---
DATE: 03/21/2018 SUBJECTIVE: The patient is currently on high-flow oxygen. She reports her breathing is a little better today. She has mild work of breathing OBJECTIVE: Vital Signs: The patient has been afebrile for the last 24 hours. Blood pressure 102/45, heart rate 102, respiratory rate 34, oxygen saturation 93% on 70% FiO2. HEENT: Pupils are equal and reactive. Oropharynx is clear. Neck: Supple. Chest: Reveals coarse rhonchi bilaterally. Cardiac exam: S1,S2. Abdomen: Soft with decreased bowel sounds. Extremities: Reveal trace to 1+ peripheral edema. LABORATORIES: Arterial blood gas on BiPAP reveals a pH 7.51, pCO2 of 36, PO2 of 64 on an FiO2 of 60%. White blood count 18.6, hemoglobin 8.6, platelet count 345,000. Sodium 133, potassium 3.0, chloride 93, bicarbonate 24. BUN 21, creatinine 1.1. IMAGING: Chest x-ray: Bilateral infiltrates with effusions. No change. IMPRESSION: 1. A 77 year old with methicillin-resistant Staph aureus pneumonia. 2. Methicillin-resistant Staph aureus bacteremia. 3. Possible acalculous cholecystitis. 4. Bilateral pleural effusions with hypoxemic respiratory failure. She is currently tolerating BiPAP and high-flow oxygen. RECOMMENDATION: 1. Continue BiPAP and cycle high-flow oxygen as tolerated. 2. Attempt to balance intake and output, and would prefer a slightly negative state over the next 24 hours. 3. Initiate Clinimix for nutrition. 4. Continue ICU monitoring. The patient remains critically ill. cc: Cliff Amaya MD
[2018-03-21] MEDS: CUBICIN 500 MG in NS 100 ML IV SCH (13:15)
[2018-03-21] MEDS: CLINIMIX E 4.25%-5% SOLUTION 1,000 ML IV SCH (13:15)
[2018-03-21 15:46] LABS: ALLEN TEST YES
--- NOTE | 2018-03-22 00:18 | GASTROENTEROLOGY PROGRESS NOTE ---
DATE: 03/21/2018 SUBJECTIVE: No acute overnight events. Afebrile. Patient remains on high-flow oxygen with some moderate respiratory distress. No evidence of GI bleeding per nursing staff and family at bedside. OBJECTIVE: Vital Signs: Temperature of 98 degrees, heart rate of 105, respiratory rate of 35, blood pressure 89/47, O2 saturation 93% on 70% high-flow oxygen. General: The patient is awake, alert. Mild respiratory distress. HEENT: Anicteric. Extraocular motor intact. Neck: No JVD, lymphadenopathy. Cardiac: Tachycardic, regular. No murmurs. Lungs: Increased work of breathing, decreased breath sounds bilaterally that are coarse. No wheezing. Abdomen: Soft, nontender, nondistended. Normoactive bowel sounds. Extremities: Lower. No clubbing, cyanosis, edema. LABS: White count of 18.55, hemoglobin 8.6, platelets of 345,000, sodium 133, potassium 3.0, chloride 93, carbon dioxide 24, BUN of 21, creatinine 1.1, glucose 73. ABG, pH 7.51, pCO2 36, PO2 64. ASSESSMENT AND PLAN: Ms. Singh is a 77-year-old woman admitted with hypoxic respiratory failure in the setting of methicillin-resistant Staphylococcus aureus pneumonia and bacteremia complicated by atrial fibrillation with rapid ventricular response and possible acalculous cholecystitis. Gastroenterology is following for reported history of black tarry stools and anemia. Her hemoglobin has remained stable without any need for transfusion. Ultrasound done over the weekend showed some thickened gallbladder as well as ascites but no obvious acalculous cholecystitis. Her leukocytosis is likely related to her underlying methicillin-resistant Staphylococcus aureus pneumonia and bacteremia. Repeat blood cultures from the did not show any growth to date. 1. Methicillin-resistant Staphylococcus aureus pneumonia and bacteremia. She is currently on ceftaroline and daptomycin as per Infectious Disease team. 2. Anemia. Hemoglobin is stable. Continue PPI IV b.i.d., trending hemoglobin daily. 3. Diabetes. She is on sliding scale insulin. 4. Acute hypoxic respiratory failure currently on high-flow oxygen being managed by Dr. Amaya. 5. Acalculous cholecystitis. The patient has been seen by surgery in the past. Repeat ultrasound negative for cholecystitis. Did show some small volume ascites. 6. Atrial fibrillation with rapid ventricular response currently rate controlled with amiodarone. PLAN: Discussed with patient and family at bedside. All questions were answered. Please call with any questions or concerns. Will follow with you.
[2018-03-22] MEDS: HUMULIN R SUBQ SCH ×6 (02:04→20:59)
[2018-03-22] MEDS: CLINIMIX E 4.25%-5% SOLUTION 1,000 ML IV SCH ×2 (02:48→18:43)
[2018-03-22] MEDS: ATROVENT NEB INH SCH ×6 (03:26→23:50)
[2018-03-22] MEDS: XOPENEX NEB INH SCH ×6 (03:27→23:50)
[2018-03-22 04:55] LABS: ALLEN TEST YES; BE 6.3 mmoll (-3.0-3.0); BLOOD TYPE ARTERIAL; HCO3-(ACT) 29.8 mmoll (20.0-26.0); METHB 1.2 % (0.0-1.5); O2(CT) 12.7 mL/dL (15.0-23.0); O2HB 93.3 % (95.0-99.0); PCO2(98.6) 33 mmHg (35-45); PO2(98.6) 71 mmHg (60-100); SAMPLE BLOOD; SAO2 96.4 % (95.0-100.0); THB 9.6 g/dL (11.5-17.4); pH(98.6) 7.55 (7.35-7.45)
[2018-03-22 04:56] LABS: MODALITY BI PAP
[2018-03-22 04:57] LABS: BASO# 0.03 X1000 (0.0-0.2); BASO% 0.2 % (0.0-0.8); EOS% 0.6 % (0.0-10.0); HEMATOCRIT 25.9 % (37.0-47.0); HEMOGLOBIN 8.2 g/dL (12.0-16.0); IMM GRAN% 2.4 % (0.0-0.5); LYMPH# 1.54 X1000 (1.2-3.4); LYMPH% 9.3 % (20.5-51.1); MCH 28.8 PG (27-31); MCHC 31.7 g/dL (33-37); MCV 90.9 FL (81-99); MONO% 7.8 % (1.7-9.3); MPV 10.4 FL (7.4-10.4); NEUT# 13.26 X1000 (1.4-6.5); NEUT% 79.7 % (42.2-75.2); PLT 340 X1000 (130-400); RBC 2.85 XMIL (4.2-5.4); RDW 18.6 % (11.5-14.5); WBC 16.63 X1000 (4.8-10.8)
[2018-03-22 05:55] LABS: ALB/GLOB RATIO 0.6; ALBUMIN 2.3 g/dL (3.5-5.0); CALCIUM 8.1 mg/dL (8.8-10.2); CREATININE 1.2 mg/dL (0.5-0.9); MAGNESIUM 1.3 mg/dL (1.5-2.7); PHOSPHORUS 3.3 mg/dL (2.7-4.5); POTASSIUM 3.1 mmol/L (3.5-5.1); TOTAL BILIRUBIN 0.59 mg/dL (0.20-1.00)
[2018-03-22 07:30] LABS: LYMPHS 6 % (21-51); SEGS 94 % (42-75)
--- NOTE | 2018-03-22 07:38 | Diag Imaging Result Doc PS360 ---
EXAM: CHEST-PORTABLE INDICATION: respiratory failure TECHNIQUE: One view COMPARISON: 03/21/2018 FINDINGS: The left central line is in stable position. Dense bilateral infiltrates are unchanged. Pleural effusions are stable. No new consolidation is identified. Cardiac silhouette is stable. IMPRESSION: Stable chest. Electronically signed by Boo Sawyer 03/22/2018 7:36 AM
[2018-03-22] MEDS: MUCOMYST 20% INH SCH ×2 (07:55→20:06)
[2018-03-22] MEDS ORDERED: MAGNESIUM SULFATE 2 GM/S.W.I. 2 GM/50 ML IVPB IV ONE (08:21)
[2018-03-22] MEDS ORDERED: POTASSIUM CHLORIDE 40 MEQ/SWI 40 MEQ/100 ML IVPB IV ONE (08:21)
[2018-03-22] MEDS: ARICEPT PO SCH (08:29)
[2018-03-22] MEDS: CORDARONE PO SCH (08:29)
[2018-03-22] MEDS: LOPRESSOR PO SCH ×2 (08:29→20:52)
[2018-03-22] MEDS: LASIX IV SCH ×2 (08:30→20:52)
[2018-03-22] MEDS: ICAR-C PO SCH ×2 (08:30→20:52)
--- NOTE | 2018-03-22 09:12 | PROGRESS NOTE ---
DATE: 03/22/2018 SUBJECTIVE: No family members at the bedside at this moment. This patient is alert and she is oriented today x3. She states that she is not feeling good, and she still wants to be full code. She is extremely weak and I have requested an evaluation by Occupational Therapy and Physical Therapy to do range of motion. Her magnesium and potassium are low and I will replace it. OBJECTIVE: Vital Signs: Temperature 98.3 degrees, pulse 109, respiratory rate 16, blood pressure 122/64, oxygen saturation 93% on a high-flow nasal cannula. HEENT: Head normocephalic. No trauma. PERRLA. Neck: Supple. No JVD. Central trachea. Chest: Coarse breath sounds bilaterally with decreased inspiratory effort. Some rhonchi also noted at the bases. Decreased breath sounds at the bases as well. Abdomen: Soft. Mildly distended. Nontender to palpation. No signs of peritoneal irritation. Bowel sounds present. Extremities: No edema. No clubbing. No cyanosis. Neurological: This patient is alert. She is oriented x3. She seems to be really weak. She is able to say her name, date of . She is following commands. She is oriented to time and place. She is able to move her 4 extremities like I said, but she is really weak. LABORATORY: WBC 16.6, hemoglobin 8.2, hematocrit 25.9, platelets 340,000. Sodium 133, potassium 3.1, chloride 93, bicarbonate 27, BUN 30, creatinine 1.2, glucose 127, calcium 8.1, magnesium 1.3, albumin 2.3. ASSESSMENT AND PLAN: 1. Acute hypoxemic respiratory failure, likely secondary to bibasilar pneumonia secondary to MRSA and pleural effusion. She is using the high-flow oxygen nasal cannula at this moment. She seems to be more awake even than yesterday, but she has been sleepy on and off. She is following commands and answering some of my questions. No big changes on the x-ray. 2. Bibasilar pneumonia secondary to MRSA and pleural effusion. I will decrease a little bit the rate of the Clinimix. I will continue with her diet as well. I want to be in the negative side of fluid balance. She is getting Lasix twice a day, but also she has been getting Lasix x1. BUN and creatinine increased a little bit compared with yesterday, so I will monitor for now. 3. Bacteremia due to MRSA. Continue with same management. Infectious Disease Department on board. 4. Acalculous cholecystitis. We will monitor for now. 5. Atrial fibrillation with rapid ventricular response. Rate controlled. Cardiology on board. 6. Hypokalemia. I will replace the potassium today through her central line. 7. Hypomagnesemia. Also, I will replace the magnesium through her central line. 8. Pulmonary edema. 9. Gastrointestinal bleed has been ruled out. 10. Disposition. Continue treating this patient in the intensive care unit. Her prognosis is poor, but we will continue treating this patient. CRITICAL CARE TIME: 40 minutes. cc: Nestor Ruiz MD
[2018-03-22] MEDS: ATIVAN IV PRN ×2 (12:40→22:16)
[2018-03-22] MEDS: TEFLARO 600 MG in NS 250 ML IV SCH (13:00)
[2018-03-22] MEDS: PROTONIX IV SCH (13:00)
[2018-03-22] MEDS: CUBICIN 500 MG in NS 100 ML IV SCH (13:46)
[2018-03-22] MEDS: CENTRUM SILVER PO SCH (13:47)
[2018-03-22] MEDS: SOLU-MEDROL IV SCH (18:43)
[2018-03-23] MEDS: SODIUM CHLORIDE 0.9% INJ SCH
--- NOTE | 2018-03-23 00:30 | INFECTIOUS DISEASE PROGRESS NO ---
DATE: 03/22/2018 PRESENT ILLNESS: The patient has methicillin-resistant Staph aureus bacteremia. I think it is possible she does have an associated pneumonia. However, her procalcitonin level is 0.2, which makes it unlikely that she has pneumonia. MEDICATIONS: This is the 7th day of treatment with a combination of ceftaroline for the patient's possible pneumonia, and daptomycin for the bacteremia. PHYSICAL EXAMINATION: Vital Signs: Temperature is 97 degrees, pulse 109, respirations 30, blood pressure 111/51. General: This is an ill-appearing, elderly female. She is not on a BiPAP mask. She appears to not be in any acute distress. Head, Eyes, Ears, Nose, and Throat: She can hear my spoken words and see near objects. She does not have any white coating on her tongue. Neck: No stiffness. Lungs: Clear to auscultation. Cardiovascular: The patient's heart rate remains rapid, and it is irregular to a slight extent. Abdomen: Soft and nontender. Neurologic: Patient is alert. She is able to converse. She does not have a tremor. She can move her extremities. LAB AND X-RAY: Chest x-ray shows continued bilateral infiltrates. Procalcitonin level is 0.2. The patient's blood gases show a pH of 7.55, a PO2 71, a pCO2 of 33. The creatinine is 1.2. GFR is 44. Liver function studies are normal. CBC shows a white count of 16,630, hemoglobin 8.2, and platelet count 340,000. ASSESSMENT AND PLAN: The patient has methicillin-resistant Staph aureus bacteremia. I think it is still possible that she does have a Staph aureus pneumonia, although the procalcitonin level is against that. I plan to continue both antibiotics, namely ceftaroline and daptomycin. COMORBIDITIES: The patient is elderly. She has had a stroke, and she also is a diabetic. cc: Omari Carter MD
[2018-03-23] MEDS: SOLU-MEDROL IV SCH ×3 (03:24→17:31)
[2018-03-23] MEDS: HUMULIN R SUBQ SCH ×6 (03:25→21:29)
--- NOTE | 2018-03-23 03:37 | GASTROENTEROLOGY PROGRESS NOTE ---
DATE: 03/22/2018 SUBJECTIVE: No acute overnight events. Afebrile. Patient continues to have shortness of breath, requiring high-flow oxygen. The patient has had multiple bowel movements that have been nonbloody. No nausea, vomiting, fevers. OBJECTIVE: Vital Signs: Temperature 97.0 degrees, heart rate of 109, respiratory rate of 30, blood pressure 111/51, O2 saturation 91% on high-flow oxygen at 60%. General: Patient is awake, alert, in no acute distress. HEENT: Sclerae anicteric. Moist mucous membranes. Neck: No JVD or lymphadenopathy. Cardiac: Tachycardic, regular. No murmurs. Lungs: Increased work of breathing. Decreased breath sounds throughout. Crackles at bases. Abdomen: Soft, nontender, nondistended. Normoactive bowel sounds. Extremities: No clubbing, cyanosis, or edema. Neurologic: Nonfocal. LABS: White count of 16.6, hemoglobin 8.2, which is stable over the last 5 days. Platelets of 340,000. Sodium 133, potassium 3.1, chloride of 92, bicarb of 27, BUN of 30, creatinine of 1.2. Glucose of 127. Albumin of 2.3. Total bilirubin of 1.3. AST and ALT are within normal limits. Alkaline phosphatase as well is normal. IMAGING: Chest x-ray shows dense bilateral infiltrates that are unchanged. Pleural effusions are stable. No new consolidation. ASSESSMENT AND PLAN: Ms. Singh is a 77-year-old woman admitted with hypoxic respiratory failure in the setting of MRSA pneumonia and bacteremia, complicated by atrial fibrillation with RVR, and possible acalculous cholecystitis. GI has been following for reported history of black tarry stools and anemia. Her hemoglobin has remained stable, without need for blood transfusion. Ultrasound done recently did not show any evidence of acalculous cholecystitis. Surgery has seen patient in house, and no plans for surgical intervention at this time. Her leukocytosis is likely related to her underlying pneumonia and bacteremia. Repeat cultures from the showed no growth to date. 1. MRSA pneumonia and bacteremia, currently on ceftaroline and daptomycin, as per ID. 2. Anemia. Hemoglobin is stable. Recommend continue PPI prophylaxis once daily by mouth. 3. Diabetes. Patient is currently on sliding scale insulin. 4. Acute hypoxic respiratory failure, on high-flow oxygen, being managed by Dr. Amaya. 5. Question acalculous cholecystitis. No evidence based off of ultrasound or exam. Seen by Surgery. No plans for surgical intervention at this time. 6. Atrial fibrillation, with RVR. Currently, patient is controlled with amiodarone and beta nidia. GI has no further recommendations at this time. Should the patient develop new hematochezia or worsening anemia, please call back. We will sign off for now. The patient will need diagnostic EGD and colonoscopy as an outpatient once she improves from her acute medical problems. This plan was communicated to the patient and family at bedside. All questions were answered. Please call with any questions or concerns.
[2018-03-23] MEDS: ATROVENT NEB INH SCH ×6 (03:45→23:40)
[2018-03-23] MEDS: XOPENEX NEB INH SCH ×6 (03:46→23:40)
[2018-03-23 05:01] LABS: ALLEN TEST YES; BE 4.8 mmoll (-3.0-3.0); BLOOD TYPE ARTERIAL; HCO3-(ACT) 28.6 mmoll (20.0-26.0); METHB 1.4 % (0.0-1.5); O2(CT) 11.8 mL/dL (15.0-23.0); O2HB 93.2 % (95.0-99.0); PCO2(98.6) 34 mmHg (35-45); PO2(98.6) 71 mmHg (60-100); SAMPLE BLOOD; SAO2 96.5 % (95.0-100.0); THB 8.9 g/dL (11.5-17.4); pH(98.6) 7.52 (7.35-7.45)
[2018-03-23 05:03] LABS: MODALITY BI PAP
--- NOTE | 2018-03-23 05:11 | PULMONOLOGY PROGRESS NOTE ---
DATE: 03/22/2018 SUBJECTIVE: The patient is awake, alert, and on high-flow O2. She has mild increased work of breathing. She reports she is having some headache. OBJECTIVE: Vital Signs: She has been afebrile. Heart rate 107, blood pressure 131/68, oxygen saturation 92%, respiratory rate 32. HEENT: Pupils are equal and reactive. Oropharynx is clear. Neck: Supple. Chest: Reveals coarse rhonchi bilaterally. Cardiac Examination : Increased rate. Regular rhythm. Abdomen: Soft. Extremities: Reveal 1+ peripheral edema. Laboratories: Chest x-ray reveals dense bilateral infiltrates with stable effusions. No new microbiology data. Sodium 133, potassium 3.1, chloride 93, bicarbonate 27, BUN 30, creatinine 1.2, glucose 127, magnesium 1.3, phosphorus 3.3. Arterial blood gas with pH of 7.55, pCO2 of 33, PO2 of 71. IMPRESSION: A 77-year-old with methicillin-resistant Staphylococcus aureus pneumonia, possible acalculous cholecystitis, bilateral pleural effusions with acute hypoxemic respiratory failure. This is hospital day 17. She continues to have significant bilateral pulmonary infiltrates. RECOMMENDATIONS: 1. Continue BiPAP and high-flow oxygen as tolerated. 2. Continue to balance intake and output. 3. Continue Clinimix for nutrition. 4. Agree with end of life discussions. Her prognosis is poor. 5. Given persistent infiltrates on hospital day 17, we will initiate a trial of steroids to see if this helps improve the parenchymal infiltrates in the event she has a component of bronchiolitis obliterans. cc: Cliff Amaya MD MTDD
[2018-03-23 05:55] LABS: BASO# 0.02 X1000 (0.0-0.2); BASO% 0.1 % (0.0-0.8); HEMATOCRIT 27.2 % (37.0-47.0); HEMOGLOBIN 8.5 g/dL (12.0-16.0); IMM GRAN# 0.34 X1000 (0.0-0.04); LYMPH# 1.14 X1000 (1.2-3.4); LYMPH% 6.6 % (20.5-51.1); MCH 28.5 PG (27-31); MCHC 31.3 g/dL (33-37); MCV 91.3 FL (81-99); MONO# 0.67 X1000 (0.11-0.59); MONO% 3.9 % (1.7-9.3); MPV 10.6 FL (7.4-10.4); NEUT# 15.16 X1000 (1.4-6.5); NEUT% 87.4 % (42.2-75.2); PLT 364 X1000 (130-400); RBC 2.98 XMIL (4.2-5.4); RDW 18.7 % (11.5-14.5); WBC 17.33 X1000 (4.8-10.8)
[2018-03-23 06:10] LABS: CALCIUM 7.9 mg/dL (8.8-10.2); CREATININE 1.2 mg/dL (0.5-0.9); MAGNESIUM 1.9 mg/dL (1.5-2.7); POTASSIUM 3.8 mmol/L (3.5-5.1)
--- NOTE | 2018-03-23 07:26 | Diag Imaging Result Doc PS360 ---
EXAM: CHEST-PORTABLE 03/23/2018 HISTORY: respiratory failure TECHNIQUE: AP portable at 0512 COMMENT: There are patchy alveolar opacities bilaterally. There are bilateral pleural effusions. There has been some improvement particularly with regard to the right upper lobe since the previous study of 03/22/2018. IMPRESSION: Pulmonary edema and/or pneumonia with bilateral pleural effusions. Electronically signed by Matt Myers 03/23/2018 7:24 AM
[2018-03-23] MEDS: MUCOMYST 20% INH SCH ×2 (08:12→19:48)
--- NOTE | 2018-03-23 09:34 | PROGRESS NOTE ---
DATE: 03/23/2018 SUBJECTIVE: No family members at the bedside at this moment. This patient is sleepy but arousable, oriented x1. Yesterday, she was oriented x3. She is complaining of shortness of breath. Yesterday, the Palliative Care Team evaluated this patient and talked to the patient and the family member at the bedside. She explained to her the whole situation, and she has decided to change her code status from Full Code to DNR. I will try to contact one of the siblings, but so far, there is just one person constantly at the bedside but is not a direct family member, I believe. OBJECTIVE: Vital Signs: Temperature 98.6, pulse 102. Respiratory rate 29, blood pressure 121/79, oxygen saturation 91% on high-flow oxygen. HEENT: Head normocephalic. No trauma. PERRLA. Neck supple. No JVD. No masses. Central trachea. Chest: Coarse breath sounds bilaterally with decreased breath sounds, mostly at the bases. Also, some rhonchi at the bases has been noted. Abdomen soft, mildly distended. Nontender to palpation. No signs of peritoneal irritation. Bowel sounds present. Extremities: No edema. No clubbing. No cyanosis. Neurological: This patient is sleepy, but arousable. Oriented x1. She is really weak. She is able to say her name and date of . She is following commands on and off. LABORATORY: WBC 17.3, hemoglobin 8.5, hematocrit 27.2, platelet 364,000. Sodium 133, potassium 3.8, chloride 93, bicarbonate 24. BUN 40, creatinine 1.2, glucose 135. Calcium 7.9, magnesium 1.9. ASSESSMENT AND PLAN: 1. Acute hypoxemic respiratory failure likely secondary to bibasilar pneumonia likely secondary to methicillin-resistant Staphylococcus aureus and pleural effusion. She is still using high- flow oxygen via nasal cannula. She seems to be more confused today. Yesterday, she was completely alert. She is sleepy today. She is following commands on and off. We will continue following this patient closely. Pulmonary Department on board. 2. Bibasilar pneumonia likely secondary to methicillin-resistant Staphylococcus aureus, also, she has pleural effusion. Continue with same management. She is getting Lasix. Creatinine about the same compared with yesterday. Creatinine a little bit more elevated. Her urine output has decreased a little bit. Has decreased. Will monitor. 3. A calculus cholecystitis, will monitor for now. 4. Atrial fibrillation with rapid ventricular rate, rate controlled. Cardiology on board. 5. Hypokalemia. I will replace the potassium today. 6. Hypomagnesemia. Also, we will replace the magnesium through her central line. 7. Hypocalcemia. Calcium has being replaced as well. 8. Gastrointestinal bleed has been ruled out. DISPOSITION: We will continue treating this patient in the ICU. Her prognosis poor due to her comorbidities correct condition and age. We will continue treating this patient. CRITICAL CARE TIME: 45 minutes. cc: Nestor Ruiz MD
[2018-03-23] MEDS: ARICEPT PO SCH (09:46)
[2018-03-23] MEDS: LASIX IV SCH ×2 (09:46→20:48)
[2018-03-23] MEDS: LOPRESSOR PO SCH ×2 (09:46→20:48)
[2018-03-23] MEDS: ICAR-C PO SCH ×3 (09:46→21:30)
[2018-03-23] MEDS: CENTRUM SILVER PO SCH (09:48)
[2018-03-23] MEDS: CORDARONE PO SCH (09:48)
--- NOTE | 2018-03-23 10:00 | PROGRESS NOTE ---
DATE: 03/23/2018 I communicated with Ms. Viviana Singh's family members. I did talk with Mr. Dk Shaw. His phone #[phone]. I talked to him about his mom's situation. I told him that his mother is critically ill, and her prognosis is poor. She has been hospitalized 18 days, and she has been having some good days and bad days, but overall she is declining, poor prognosis. He seems to understand. Also, I told him that her mother states that she wants to be DNR, that has been corroborated by the palliative care team as well. I tried to communicate with Ms. Mary Grace Carreon at [phone], but I left a message. cc: Nestor Ruiz MD
[2018-03-23] MEDS: PROTONIX IV SCH ×2 (12:02)
[2018-03-23] MEDS: TEFLARO 600 MG in NS 250 ML IV SCH ×3 (12:03)
[2018-03-23] MEDS: ATIVAN IV PRN (12:03)
[2018-03-23] MEDS: CUBICIN 500 MG in NS 100 ML IV SCH (13:43)
--- NOTE | 2018-03-23 13:47 | PULMONOLOGY PROGRESS NOTE ---
DATE: 03/23/2018 SUBJECTIVE: The patient is arousable, but quickly drifts back to sleep. She has had increased air hunger today while on BiPAP. OBJECTIVE: Vital Signs: The patient has been afebrile for the last 24 hours. Blood pressure 114/91, heart rate 102, respiratory rate 36, oxygen saturation 93%. HEENT: Pupils are equal and reactive. Oropharynx is clear. Neck: Supple. Chest: Reveals coarse rhonchi bilaterally. Cardiac exam: Distant heart sounds. Normal S1, normal S2. Abdomen: Soft with diminished bowel sounds. Extremities: Reveal 1+ peripheral edema. LABORATORIES: Sodium 133, potassium 3.8, chloride 93, bicarb 24, BUN 40, creatinine 1.2. Chest x- ray reveals bilateral infiltrates and effusions with marginal improvement in aeration of the right upper lobe. Sodium 133, potassium 3.8, chloride 93, bicarbonate 24, BUN 40, creatinine 1.2. White blood count 17.33, hemoglobin 8.5, platelet count 364,000. IMPRESSION: A 77-year-old with: 1. Methicillin-resistant Staph aureus pneumonia. 2. Possible acalculous cholecystitis. 3. Bilateral pleural effusions. 4. Hypoxemic respiratory failure. 5. Protein calorie malnutrition. She is hospital day #18 and continues to have high oxygen requirements and bilateral pulmonary infiltrates. This is day 2 of steroids. Her prognosis is poor. End of life discussions have been addressed by Dr. Waddell. RECOMMENDATION: 1. Continue BiPAP and high-flow oxygen as tolerated. 2. We will use low-dose p.r.n. morphine for comfort. 3. Continue Clinimix. 4. Continue steroids. PROGNOSIS: Overall prognosis is poor. cc: Cliff Amaya MD
[2018-03-23] MEDS: CLINIMIX E 4.25%-5% SOLUTION 1,000 ML IV SCH (14:00)
[2018-03-23] MEDS: MORPHINE IV PRN ×2 (14:14→17:31)
--- NOTE | 2018-03-23 15:59 | GASTROENTEROLOGY PROGRESS NOTE ---
DATE: 03/23/2018 SUBJECTIVE: The patient is resting in bed. She is on face mask. She is on BiPAP. She is able to open eyes on command. She denies any abdominal pain or rectal bleeding. PHYSICAL EXAMINATION: Vital Signs: Temperature of 98.6, pulse rate of 102, respiratory rate of 36, blood pressure 114/91, saturating 93% on 60% FiO2. General Appearance: Thinly built, lying in bed, in no acute distress. HEENT: Positive pallor. No icterus. Face mask in place. Neck: Supple. Abdomen: Soft, nondistended. No guarding. Extremities: No cyanosis, clubbing. Neurologic: She was able to awake upon command. She was able to answer simple questions. LABORATORY DATA: Hematocrit and hematocrit are 8.5 and 27.2, white count of 17.33, platelet count of 364,000. ABGs showing a pH of 7.52, pCO2 of 35, pO2 of 71. This is on BiPAP at 70% FiO2. Sodium of 133, potassium is 3.8, chloride 93, bicarb 24, anion gap 16, BUN of 40 , creatinine 1.2, glucose of 135, calcium is 9.9. Magnesium 1.9. Creatine kinase is 29. Blood cultures x2 are negative at five days from 03/15/2018. IMAGING: Chest x-ray done today showed pulmonary edema and/or pneumonia with bilateral pleural effusions. IMPRESSION AND PLAN: 1. Acute hypoxic respiratory failure secondary to Methicillin-resistant Staphylococcus aureus pneumonia and pleural effusion. She is on high amount of oxygen. She is on BiPAP. 2. Gastrointestinal bleed, is now resolved. Will continue to treat her with proton pump inhibitors.Hematocrit is low but stable. 3. Anemia. Continue to watch and transfuse as needed. 4. Atrial fibrillation with rapid ventricular response. She is being followed by Cardiology. 5. Acalculous cholecystitis. Aware. She is currently on antibiotics. 6. Malnutrition. She is on Clinimix. No plans for any endoscopic intervention at this time. I have spoken with the patient and the nursing staff and also spoke with Dr. Amaya. Please call us with any further questions. cc: MD Negro Blanchard MD MTDD
[2018-03-24] MEDS: TEFLARO 600 MG in NS 250 ML IV SCH ×2 (00:44→11:55)
[2018-03-24] MEDS: PROTONIX IV SCH ×2 (00:44→11:55)
[2018-03-24] MEDS: LOPRESSOR PO SCH ×2 (00:45→08:58)
--- NOTE | 2018-03-24 01:05 | INFECTIOUS DISEASE PROGRESS NO ---
DATE: 03/23/2018 PRESENT ILLNESS: The patient has a methicillin-resistant Staph aureus bacteremia, I think it is still possible that she could have an associated methicillin-resistant Staph aureus pneumonia even though her procalcitonin level is only 0.2, which makes it unlikely that she does have pneumonia. MEDICATIONS: The patient is on the 8th day of treatment with ceftaroline for the pneumonia and daptomycin for the bacteremia. PHYSICAL EXAMINATION: Vital Signs: Temperature was 100 degrees now it is 97 degrees, pulse 91, respirations 33, blood pressure 122/58. General: This is an ill-appearing elderly female. Ears Nose and Throat: The patient is on a BiPAP mask. There is no drainage from the nose or ears. Neck: No meningismus. Lungs: Clear to auscultation. Cardiovascular: Heart rate is irregular. Abdomen: Soft and nontender. Neurologic: The patient is lethargic tonight. She does not have a tremor. She did not respond to verbal stimuli. LAB AND X-RAY: Chest x-ray shows bilateral opacities and pleural effusions. CK is 29. Procalcitonin is 0.2. CBC shows a white count of 17,330, hemoglobin 8.5, platelet count 364,000. Blood gases show a pH of 7.52, a PO2 of 71, a pCO2 of 34, creatinine is 1.2 GFR is 44. ASSESSMENT AND PLAN: The patient has methicillin-resistant Staphylococcus aureus and bacteremia, she may have an associated pneumonia as well. For now I am going to continue both antibiotics. COMORBIDITIES: The patient is elderly. She has had a stroke. She also is a diabetic. cc: Omari Carter MD
[2018-03-24] MEDS: HUMULIN R SUBQ SCH ×5 (02:26→20:53)
[2018-03-24] MEDS: SOLU-MEDROL IV SCH ×3 (02:26→16:30)
[2018-03-24] MEDS: XOPENEX NEB INH SCH ×5 (04:00→20:08)
[2018-03-24] MEDS: ATROVENT NEB INH SCH ×5 (04:00→20:08)
[2018-03-24 04:52] LABS: ALLEN TEST YES; BE 2.6 mmoll (-3.0-3.0); BLOOD TYPE ARTERIAL; HCO3-(ACT) 26.9 mmoll (20.0-26.0); O2(CT) 11.6 mL/dL (15.0-23.0); O2HB 91.7 % (95.0-99.0); PCO2(98.6) 41 mmHg (35-45); PO2(98.6) 66 mmHg (60-100); SAMPLE BLOOD; SAO2 94.7 % (95.0-100.0); THB 8.9 g/dL (11.5-17.4); pH(98.6) 7.43 (7.35-7.45)
[2018-03-24 04:59] LABS: MODALITY BI PAP
--- NOTE | 2018-03-24 07:40 | Diag Imaging Result Doc PS360 ---
EXAM: CHEST-PORTABLE INDICATION: respiratory failure TECHNIQUE: One view COMPARISON: 03/23/2018 FINDINGS: The left central line is in stable position. Given slight differences in positioning, the dense patchy infiltrates throughout both lungs are essentially stable. Bilateral effusions are unchanged. No new consolidation is identified. Cardiac silhouette is stable. IMPRESSION: Essentially stable chest. Electronically signed by Boo Sawyer 03/24/2018 7:37 AM
[2018-03-24] MEDS: MUCOMYST 20% INH SCH ×2 (07:48→20:08)
--- NOTE | 2018-03-24 08:18 | INFECTIOUS DISEASE PROGRESS NO ---
DATE: 03/24/2018 SUBJECTIVE: The patient has a methicillin-resistant Staph aureus bacteremia. I think it is possible she could have also a pneumonia due to the same organism, even though her procalcitonin level is 0.2. MEDICATIONS: The patient is on the 8th day of treatment with ceftaroline for the pneumonia, and 8th day of treatment for daptomycin for the patient's bacteremia. OBJECTIVE: Vital Signs: Temperature is 97 degrees, pulse 93, respirations 24, blood pressure 101/55. General: This is an ill-appearing elderly female. She is in no acute distress. Head, Eyes, Ears, Nose, and throat: Patient is wearing a BiPAP mask. There is no drainage from the nose or ears. Neck: No stiffness. Lungs: Clear to auscultation. Cardiovascular: Heart rate is irregular. Abdomen: Soft and nontender. Neurologic: The patient is lethargic, but arousable. She can move her extremities. She does not have a tremor. LAB AND X-RAY: Chest x-ray shows bilateral patchy infiltrates and effusions. The patient's blood gases show a pH of 7.43, a pO2 of 66, and a pCO2 of 41. Procalcitonin is 0.2. ASSESSMENT AND PLAN: Patient has methicillin-resistant Staphylococcus aureus bacteremia and possible associated pneumonia. For now, I plan to continue the patient's current antibiotics. I am going to go ahead and get a CK level because the patient is on daptomycin to make sure that there is no muscle toxicity. COMORBIDITY: The patient is elderly and has diabetes and a stroke. cc: Omari Carter MD MTDD
--- NOTE | 2018-03-24 08:23 | PROGRESS NOTE ---
DATE: 03/24/2018 SUBJECTIVE: No family members at the bedside at this moment. This patient is sleepy, but arousable. Oriented x1. She is following commands on and off. She is still short of breath. She is still using the BiPAP machine, high-flow oxygen. She is DNR. We will continue with the same management, but probably I will transfer this patient to [facility]. OBJECTIVE: Vital Signs: Temperature 96.7, pulse 93, respiratory rate 24, blood pressure 101/55, and oxygen saturation 95% on the BiPAP machine. HEENT: Head normocephalic. No trauma. PERRLA. Neck: Supple. No JVD. No masses. Central trachea. Chest: Coarse breath sounds bilaterally with decreased breath sounds especially at the bases. She has rhonchi bilaterally also noted. Abdomen: Soft, mildly distended. Nontender to palpation. No signs of peritoneal irritation. Bowel sounds present. Extremities: No edema. No clubbing. No cyanosis. Neurological: The patient is sleepy, but arousable. Oriented x1. She is extremely weak. She is able to say her name on and off her date of . She is following commands on and off as well. LABORATORY: Pending lab work today. ABGs pH with 7.43. The pCO2 41. PO2 66, and bicarb level is 26.9. ASSESSMENT AND PLAN: 1. Acute hypoxemic respiratory failure likely secondary to bibasilar pneumonia which is likely secondary to MRSA and pleural effusion. She is still using high-flow oxygen and BiPAP machine. She seems to be still confused. Two days ago, she was more alert. She is sleepy. She is following commands on and off. We will continue to monitor this patient closely. Pulmonary Department on board. Her prognosis is poor. 2. Bibasilar pneumonia likely secondary to MRSA. Also, she has pleural effusion. Continue with same management. Continue with Lasix. 3. Acalculous cholecystitis. Will monitor for now. 4. Atrial fibrillation with RVR, rate controlled. Cardiology on board. This patient has not been able to swallow properly so we will continue with p.r.n. medications IV. 5. Hypokalemia. Pending lab work today. 6. Hypomagnesemia. Pending lab work today. We will monitor. 7. Hypocalcemia. Again, we will wait for the lab work results. 8. Gastrointestinal bleed, has been ruled out. 9. Overall, this patient is not doing good. Her prognosis is poor. I had a conversation with both her son and her daughter by phone. I told them that their mother is basically critically ill. I told them that I am not quite sure if she is going to get better with treatment. CRITICAL CARE TIME: 35 minutes. cc: Nestor Ruiz MD
[2018-03-24] MEDS: CLINIMIX E 4.25%-5% SOLUTION 1,000 ML IV SCH (08:36)
[2018-03-24] MEDS: LASIX IV SCH ×2 (08:36→20:52)
[2018-03-24 08:43] LABS: ALB/GLOB RATIO 0.5; ALBUMIN 2.2 g/dL (3.5-5.0); CALCIUM 8.4 mg/dL (8.8-10.2); CREATININE 1.2 mg/dL (0.5-0.9); POTASSIUM 4.5 mmol/L (3.5-5.1); TOTAL BILIRUBIN 0.45 mg/dL (0.20-1.00); TOTAL PROTEIN 6.3 g/dL (6.3-8.3)
[2018-03-24] MEDS: CENTRUM SILVER PO SCH (08:57)
[2018-03-24] MEDS: ARICEPT PO SCH (08:57)
[2018-03-24] MEDS: CORDARONE PO SCH (08:58)
[2018-03-24] MEDS: ICAR-C PO SCH ×2 (08:58→20:53)
[2018-03-24] MEDS ORDERED: CLINIMIX E 4.25%-5% SOLUTION 1,000 ML IV SCH (09:15)
[2018-03-24 10:02] LABS: BASO# 0.02 X1000 (0.0-0.2); BASO% 0.1 % (0.0-0.8); EOS# 0.01 X1000 (0.0-0.7); EOS% 0.1 % (0.0-10.0); HEMATOCRIT 27.4 % (37.0-47.0); HEMOGLOBIN 8.5 g/dL (12.0-16.0); IMM GRAN# 0.33 X1000 (0.0-0.04); LYMPH# 1.34 X1000 (1.2-3.4); LYMPH% 8.1 % (20.5-51.1); MCH 28.8 PG (27-31); MCV 92.9 FL (81-99); MONO# 0.89 X1000 (0.11-0.59); MONO% 5.4 % (1.7-9.3); MPV 10.7 FL (7.4-10.4); NEUT# 13.92 X1000 (1.4-6.5); NEUT% 84.3 % (42.2-75.2); PLT 364 X1000 (130-400); RBC 2.95 XMIL (4.2-5.4); WBC 16.51 X1000 (4.8-10.8)
[2018-03-24 11:05] LABS: BANDS 4 % (0-1); LYMPHS 10 % (21-51); MONO 6 % (1-9); SEGS 80 % (42-75)
[2018-03-24 11:06] LABS: ANISOCYTOSIS 1+; HYPOCHROM 1+; LARGE PLATELETS 1+
--- NOTE | 2018-03-24 11:54 | PULMONOLOGY PROGRESS NOTE ---
DATE: 03/24/2018 SUBJECTIVE: The patient remains on BiPAP, with high FiO2 concentration. The patient has been afebrile for the last 24 hours. OBJECTIVE: Vitals: Blood pressure 128/67, heart rate 111, respiratory rate 30, oxygen saturation 94%. HEENT: Pupils are equal and reactive. Oropharynx appears clear, but evaluation is limited. Neck: Supple. Chest: The chest reveals shallow breath sounds bilaterally. Cardiac: Increased rate. Regular rhythm. Abdomen: Soft. Extremities: The extremities reveal trace edema. DIAGNOSTIC DATA: Sodium 134, potassium 4.5, chloride 94, bicarbonate 23, BUN 50, creatinine 1.2, glucose 127. White blood count 16.5, hemoglobin 8.5, platelet count 364,000. Arterial blood gas, pH 7.43, pCO2 of 41, pO2 of 66 on 80% FiO2. Chest x-ray reveals bilateral infiltrates, with bilateral effusions. No major change of address clerk the last 24 hours, but she may have had some marginal improvement over the last 3 days. IMPRESSION: A 77-year-old with methicillin-resistant Staphylococcus aureus pneumonia, bilateral effusions, acute hypoxemic respiratory failure, protein calorie malnutrition, pleural effusions, possible acalculous cholecystitis, with progressive increase in oxygen requirements. Clinically, she remains very weak and has not had significant improvement in the last several days. RECOMMENDATIONS: 1. Continue BiPAP and high-flow oxygen as tolerated. 2. Continue low-dose morphine if needed for comfort. 3. Continue antibiotics per Infectious Disease. 4. Attempt to balance intake and output. 5. Prognosis is poor. End-of-life discussions have been addressed by Dr. Waddell. cc: Cliff Amaya MD
[2018-03-24] MEDS: SODIUM CHLORIDE 0.9% INJ SCH (11:55)
[2018-03-24] MEDS: CUBICIN 500 MG in NS 100 ML IV SCH (13:16)
[2018-03-24] MEDS: MORPHINE IV PRN ×2 (16:28→20:52)
[2018-03-24] MEDS: ATIVAN IV PRN (21:08)
[2018-03-25] MEDS: ATROVENT NEB INH SCH ×4 (00:11→11:06)
[2018-03-25] MEDS: XOPENEX NEB INH SCH ×4 (00:11→11:07)
[2018-03-25] MEDS: SODIUM CHLORIDE 0.9% INJ SCH ×2 (00:50→12:35)
[2018-03-25] MEDS: TEFLARO 600 MG in NS 250 ML IV SCH ×2 (00:50→12:33)
[2018-03-25] MEDS: PROTONIX IV SCH ×2 (00:50→12:35)
[2018-03-25] MEDS: SOLU-MEDROL IV SCH ×2 (00:55→08:29)
[2018-03-25] MEDS: ATIVAN IV PRN ×6 (00:55→16:55)
[2018-03-25] MEDS: MORPHINE IV PRN ×6 (00:55→16:55)
[2018-03-25 05:57] LABS: ALLEN TEST YES; BE 1.2 mmoll (-3.0-3.0); BLOOD TYPE ARTERIAL; HCO3-(ACT) 25.8 mmoll (20.0-26.0); METHB 1.4 % (0.0-1.5); O2(CT) 12.1 mL/dL (15.0-23.0); O2HB 92.6 % (95.0-99.0); PCO2(98.6) 35 mmHg (35-45); PO2(98.6) 71 mmHg (60-100); SAMPLE BLOOD; THB 9.2 g/dL (11.5-17.4); pH(98.6) 7.46 (7.35-7.45)
[2018-03-25 05:58] LABS: MODALITY BI PAP
[2018-03-25] MEDS: HUMULIN R SUBQ SCH ×2 (06:14→10:25)
[2018-03-25] MEDS: MUCOMYST 20% INH SCH (07:36)
[2018-03-25 07:54] LABS: BASO# 0.01 X1000 (0.0-0.2); BASO% 0.1 % (0.0-0.8); HEMATOCRIT 27.6 % (37.0-47.0); HEMOGLOBIN 8.6 g/dL (12.0-16.0); IMM GRAN# 0.25 X1000 (0.0-0.04); IMM GRAN% 1.8 % (0.0-0.5); LYMPH# 0.91 X1000 (1.2-3.4); LYMPH% 6.6 % (20.5-51.1); MCH 28.9 PG (27-31); MCHC 31.2 g/dL (33-37); MCV 92.6 FL (81-99); MONO# 0.78 X1000 (0.11-0.59); MONO% 5.7 % (1.7-9.3); MPV 10.6 FL (7.4-10.4); NEUT% 85.8 % (42.2-75.2); PLT 320 X1000 (130-400); RBC 2.98 XMIL (4.2-5.4); RDW 18.9 % (11.5-14.5); WBC 13.75 X1000 (4.8-10.8)
[2018-03-25 08:09] LABS: ALB/GLOB RATIO 0.5; ALBUMIN 2.3 g/dL (3.5-5.0); CALCIUM 8.6 mg/dL (8.8-10.2); CREATININE 1.3 mg/dL (0.5-0.9); POTASSIUM 4.1 mmol/L (3.5-5.1); TOTAL BILIRUBIN 0.5 mg/dL (0.20-1.00); TOTAL PROTEIN 6.7 g/dL (6.3-8.3)
--- NOTE | 2018-03-25 08:11 | Diag Imaging Result Doc PS360 ---
EXAM: CHEST-PORTABLE HISTORY: respiratory failure TECHNIQUE: Portable chest single view COMPARISON: 03/24/2018 FINDINGS: There are dense bilateral infiltrates. Heart is not enlarged. There are small pleural effusions. No change in the left jugular line. No pneumothorax. IMPRESSION: No interval improvement. Electronically signed by Jonathan Lozada 03/25/2018 8:09 AM
[2018-03-25] MEDS: LOPRESSOR IV PRN (08:28)
[2018-03-25 08:29] LABS: ANISOCYTOSIS 1+; BANDS 10 % (0-1); HYPOCHROM 1+; LYMPHS 8 % (21-51); MONO 6 % (1-9); SEGS 74 % (42-75)
[2018-03-25] MEDS: CENTRUM SILVER PO SCH (08:29)
[2018-03-25] MEDS: LASIX IV SCH (08:29)
[2018-03-25] MEDS: ICAR-C PO SCH (08:29)
[2018-03-25 11:29] VITALS: BP 114/43
--- NOTE | 2018-03-25 11:48 | PROGRESS NOTE ---
DATE: 03/25/2018 SUBJECTIVE: Some friends at the bedside. She is sleepy, but arousable. She is able to open her eyes and say her name. She is still short of breath and she is still using the BiPAP machine. High-flow oxygen. She is DNR. Basically now she will be on comfort measures. OBJECTIVE: Vital Signs: Temperature 97.4, pulse 119, respiratory rate 22, blood pressure 114/50. Oxygen saturation 94, 80% oxygen flow BiPAP machine. HEENT: Head normocephalic. No trauma. PERRLA. Neck: Supple. No JVD. No masses. Central trachea. Chest: Coarse breath sounds bilaterally with decreased breath sounds globally. Rhonchi also bilaterally noted. Abdomen: Soft, mildly distended. Nontender to palpation. No signs of peritoneal irritation. Bowel sounds present. Extremities: No clubbing. No cyanosis. Neurological: The patient is sleepy, but arousable. Oriented x1. She is extremely weak. She is able to say her name on and off. She is following commands on and off as well. LABORATORY: WBC 13.7, hemoglobin 8.6, hematocrit 27.6, platelets 320. Sodium 139, potassium 4.1, chloride 97, bicarbonate 26, BUN 62, creatinine 1.3. Glucose 118, calcium 8.6, magnesium 2. ASSESSMENT AND PLAN: 1. Acute hypoxemic respiratory failure, secondary to bibasilar pneumonia. Also pleural effusion and bilateral pulmonary infiltrates. She is still using high-flow oxygen and the BiPAP machine. She seems to be confused. Poor prognosis. 2. Bibasilar pneumonia. Likely secondary to MRSA. Continue with same management. Continue with the same treatment. 3. Pleural effusion. Continue with Lasix. 4. Acalculous cholecystitis, aware. 5. Atrial fibrillation with rapid ventricular rate. Will continue with p.r.n. medication. She is not able to swallow at this moment. 6. Hypokalemia, resolved. 7. Hypomagnesemia, resolved. 8. Hypocalcemia, stable. 9. Gastrointestinal bleed, has been ruled out. 10. Bacteremia. Will continue with the same management. The patient has been placed on ceftaroline and daptomycin. Overall, this patient is remarkably sick. She has been hospitalized for 20 days and she seems to be declining. Palliative care already talked to the family and the patient. She feels tired and she does not want any aggressive measures. She has been placed Do Not Resuscitate level 1. We are trying to keep this patient more comfortable. cc: Nestor Ruiz MD
[2018-03-25] MEDS: CUBICIN 500 MG in NS 100 ML IV SCH (12:33)
[2018-03-25] MEDS ORDERED: ATROPINE 1 % OPHTH SOLN SL PRN (15:29)
[2018-03-25] MEDS ORDERED: TRANSDERM-SCOP TD SCH (15:30)
[2018-03-26] MEDS: MORPHINE IV PRN ×2 (10:31→12:45)
[2018-03-26] MEDS ORDERED: ROXANOL CONC. LIQUID PO PRN (12:54)
--- NOTE | 2018-03-26 13:48 | PROGRESS NOTE ---
DATE: 03/26/2018 SUBJECTIVE: Patient is lethargic. Not complaining of pain. Hospice care is taking care of this patient. Continue with the same management. OBJECTIVE: Vital Signs: Temperature 97.4 pulse, pulse 103, respiratory rate 18, oxygen saturation 81 on a non-rebreather mask. HEENT: Head normocephalic. No trauma. PERRLA. Neck: Supple. No JVD. No masses. Central trachea. Chest: Coarse breath sounds bilaterally with decreased breath sounds globally. Rhonchi bilaterally noted. Abdomen: Soft, nontender, nondistended. No hepatosplenomegaly. Extremities: No clubbing. No cyanosis. Neurological: This patient is lethargic. LABORATORY: No lab work done today. ASSESSMENT: 1. Acute hypoxemic respiratory failure. 2. Bibasilar pneumonia. 3. Pleural effusion. 4. Atrial fibrillation with rapid ventricular response. 5. Acalculous cholecystitis, 6. Hypokalemia. 7. Hypomagnesemia. 8. Hypocalcemia. 9. Bacteremia due to methicillin-resistant Staphylococcus aureus. PLAN: Continue with comfort measures only. Continue with the same management. We will control pain and anxiety. Continue providing oxygen supplementation. cc: Nestor Ruiz MD
--- NOTE | 2018-03-26 22:35 | DISCHARGE SUMMARY ---
ADMISSION DATE: 03/05/2018 DISCHARGE DATE: 03/26/2018 DISCHARGE DIAGNOSIS: 1. Acute hypoxemic respiratory failure. 2. Bibasilar pneumonia. 3. Bacteremia due to methicillin-resistant Staphylococcus aureus. 4. Sepsis . 5. Pleural effusion. 6. Atrial fibrillation with rapid ventricular response. 7. Acalculous cholecystitis. 8. Hypokalemia . 9. Hypomagnesemia. 10. Hypocalcemia. 11. Gastrointestinal bleed has been ruled out. This patient demise at 1357 on. 03/26/2018. HOSPITAL COURSE: 77-year-old female with a past medical history of coronary artery disease, hypertension, previous UT, asthma, breast cancer, CVA, dementia and type 2 diabetes presented to [facility] ER with chief complaint of black tarry stools, fever, chills and fatigue that has been worsened over the past week prior to the admission, she was admitted on 03/05/2018. She was mildly confused and she was a poor historian, she was recently discharged from [facility] a few days prior to admission and apparently she was scheduled for a colonoscopy that week. Her workup though showed a negative occult blood in the stool, white blood cell was elevated at 11.3 as well as the LFTs, amylase and lipase normal . Her urinalysis showed positive nitrate, bacteria and white blood cells. CT scan of the abdomen and pelvis showed constipation, possible acalculous cholecystitis, bilateral pleural effusion with bibasilar atelectasis and/or pneumonia. Chest x-ray showed bibasilar pneumonia. Ultrasound of the abdomen showed acalculous cholecystitis with pleural effusion, she was admitted and evaluated by Surgery Department. HIDA scan was negative and they were planning to doing the near fusion a cholecystectomy if the patient gets better. She was placed on antibiotics and hospitalized on the medical floor, echocardiogram showed an ejection fraction of 60 to 65 percent with normal wall motion but she has a right atrium which is moderately enlarged with moderate tricuspid regurgitation, mild pulmonic insufficiency, severe left atrial enlargement with a volume index of 44. The aortic valve appears to have some restriction in motion suggesting mild aortic stenosis and there is mild aortic insufficiency. Then during the hospitalization she started having atrial fibrillation with rapid ventricular response which was treated with Cardiology Department, also she complained of hip pain but showed mild osteoarthritis and we tried to treat the pain as well, we received a blood culture that showed MRSA x2, 1 on 03/05/2018 and the other one 03/13/2018, also her breathing was getting worse with more fluid and infiltrates in the x-rays so this patient started to be using the BiPAP machine, she was transferred to [facility] for ID and pulmonary evaluation. She was placed in the ICU, she was treated for the MRSA bacteremia and pneumonia, kept this patient with the BiPAP machine on and off and the nonrebreathing mask as well but the patient was declining on a daily basis. Some days she felt better than others but overall she was declining and needing more oxygen as well, even though she was getting breathing treatment, pulmonary toilet, oxygen she was not getting better and she was not feeling good, she was getting weaker and she was not eating properly. When we asked the patient about her resuscitation status she decided to be DNR level 1 then she became confused and we talked to the family along with the palliative care team so the decision of calling hospice for treatment was made, we put this patient on comfort measures only and today 03/26/2018 at 1357 this patient . cc: Nestor Ruiz MD
== END 2018-03-26 13:40 | disposition expired | DRG 871 ==
LOC: P.ED 07:15 → P.MEDSURG 07:15 → OBSVTOIN 13:50 → SUATTDRO 13:50 → P.MEDSURG 22:44 → P.EDIPHOLD 03-06 04:47 → P.MEDSURG 03-06 06:35 → P.EDIPHOLD 03-06 07:03 → P.ICU 03-06 09:12 → P.MEDSURG 03-10 12:50 → P.ICU 03-12 06:38 → ICU 03-15 07:05 → 3N 03-24 18:30
PROVIDERS: ATTEND Internal Medicine
CPT/HCPCS: 36415; 71010; 71020; 71045; 71046; 71250; 73502; 74177; 76700; 78226; 80048; 80053; 80076; 80162; 80202; 81001; 82150; 82270; 82550; 82784; 82805; 82948; 83036; 83605; 83690; 83735; 84100; 84145; 84443; 85025; 85027; 85610; 85730; 86850; 86900; 86901; 87040; 87077; 87088; 87186; 87275; 87276; 87804; 93005; 93010; 93306; 94640; 94660; 94761; 94762; 94799; 96361; 96365; 96366; 96367; 96375; 97110; 97162; 97163; 97165; 97530; 99285; A9270; A9537; C8929; C9113; J0282; J0456; J0610; J0692; J0696; J0712; J0878; J1160; J1940; J2060; J2270; J2370; J2543; J2920; J3370; J3475; J3480; J7030; J7040; J7050; J7070; Q9957; Q9967; S0164; XXXXX